=== PATIENT | female | born 1965 | race African-American/Black ===

== ENCOUNTER 2021-11-06 08:13 | Outpatient (CLI) | payer OTHER, SELFPAY ==
--- NOTE | ~2021-11-06 | DEXA_ITS ---
Bone Density Report Name: LORE MCCOLLUM Age: 56 Sex: Female Ethnicity: Black Date of : 1965 Indication: postmenopausal; screening for osteoporosis; height loss; Referring Provider: EREN CHRISTY Study: Bone densitometry was performed. Exam Date: November 06, 2021 Accession number: [id number] Bone Density: Region BMD T-score Z-score Classification AP Spine(L1, L2, L3) 1.069 0.5 1.0 Normal Femoral Neck (Left) 0.981 1.2 1.2 Normal Total Hip (Left) 1.154 1.7 1.5 Normal Femoral Neck (Right) 0.960 1.0 1.0 Normal Total Hip (Right) 1.124 1.5 1.3 Normal Total Hip Mean 1.139 1.6 1.4 Normal World Health Organization criteria for BMD impression classify patients as: Normal (T-score at or above -1.0), Osteopenia (T-score between -1.0 and -2.5), or Osteoporosis (T-score at or below -2.5). 10-year Fracture Risk: FRAX not reported because: All T-scores for Spine Total, Hip Total, Femoral Neck at or above -1.0 Clinical Information Provided by Patient: Has used the following medications: Vitamin D Patient maximum height was 67 Menopause Age: 48 Drinks caffeinated beverages Onset of menses at age 13 Number of children 1 Impression: The patient has normal bone mass. Discussion: BONE DENSITY IS ABOVE THE MINIMUM DESIRABLE LEVEL AT ALL SKELETAL SITES TESTED. This patient?s bone mineral density is above the minimum desirable level (T-score -1.0 or better) at all sites measured. The patient should follow a healthful lifestyle (good nutrition with adequate calcium and vitamin D, and appropriate weight-bearing exercise). Follow-Up: Consider repeating this study in 5 years or sooner if there is some new clinical indication. Reported by: [facility] on 11/06/2021 9:48:00 AM. Reviewed, dictated and finalized at location A. [facility]
== END 2021-11-06 08:14 | disposition home or self-care (01) ==
PROVIDERS: Visit Provider Obstetrics & Gynecology Gynecology
DX: Z78.0 Asymptomatic menopausal state (principal)
CPT/HCPCS: 77080

== ENCOUNTER → 2023-02-08 14:17 | Outpatient (CLI) | payer OTHER, SELFPAY ==
--- NOTE | ~2023-02-08 | US_ITS ---
EXAMINATION: US thyroid DATE: 02/08/2023 14:44 INDICATION: Right thyroid nodule. TECHNIQUE: Multiple ultrasound images of the thyroid were obtained. COMPARISON: Ultrasound 04/30/2015 FINDINGS: The right thyroid lobe measures 8.7 x 4.2 x 6.2 cm. The left thyroid lobe measures 5.2 x 2.5 x 3.2 c m. In the left thyroid lobe, there is a 3.8 cm solid, hypoechoic, wider than tall nodule with smooth margin without echogenic foci (TI-RADS TR4), stable from 04/30/15. In the right thyroid lobe, there is a 5.7 cm solid, hypoechoic, wider than tall nodule with smooth margin without echogenic foci (TR4) , enlarged from 2.6 cm on 04/30/15. IMPRESSION: 1. Multinodular goiter. Ultrasound-guided fine-needle aspiration of the 5.7 cm right thyroid nodule i s recommended. Reviewed, dictated and finalized at location A. IMPRESSION: 1. Multinodular goiter. Ultrasound-guided fine-needle aspiration of the 5.7 cm right thyroid nodule is recommended.
== END ==
PROVIDERS: PCP Internal Medicine; Visit Provider Obstetrics & Gynecology Gynecology
DX: E04.2 Nontoxic multinodular goiter (principal)
CPT/HCPCS: 76536

== ENCOUNTER 2023-05-04 12:39 | Outpatient (CLI) | payer OTHER, SELFPAY ==
--- NOTE | ~2023-05-04 | US_ITS ---
EXAMINATION: US FNA w image guidance DATE: 05/04/2023 13:57 INDICATION: Thyroid nodules. TECHNIQUE: The procedure and its benefits and risks were discussed with the patient. Risks specifically discusse d included bleeding. The patient verbalized understanding of the risks and agreed to proceed. The nec k was prepped and draped in the usual sterile manner. 1% lidocaine was used for local anesthesia. 6 passes were made with a 25G needle into the lesion in left thyroid lobe under ultrasound guidance. 6 passes were made with a 25-gauge needle into the lesion in right thyroid lobe under ultrasound marcia nce. There were no immediate complications. FINDINGS: Grayscale ultrasound images demonstrate needles advanced into a 4.5 cm nodule in left thyroid lobe fo r biopsy. Grayscale ultrasound images demonstrate needles advanced into a 6.3 cm nodule in right thyr oid lobe for biopsy. IMPRESSION: 1. Ultrasound-guided fine needle aspiration of a left thyroid nodule. 2. Ultrasound-guided fine-needle aspiration of a right thyroid nodule. Reviewed, dictated and finalized at location A. [employer]
--- NOTE | ~2023-05-04 | US_ITS ---
EXAMINATION: US FNA additional DATE: 05/04/2023 13:57 INDICATION: Thyroid nodules. TECHNIQUE: The procedure and its benefits and risks were discussed with the patient. Risks specifically discusse d included bleeding. The patient verbalized understanding of the risks and agreed to proceed. The nec k was prepped and draped in the usual sterile manner. 1% lidocaine was used for local anesthesia. 6 p asses were made with a 25G needle into the lesion in left thyroid lobe under ultrasound guidance. 6 p asses were made with a 25-gauge needle into the lesion in right thyroid lobe under ultrasound guidanc e. There were no immediate complications. FINDINGS: Grayscale ultrasound images demonstrate needles advanced into a 4.5 cm nodule in left thyroid lobe fo r biopsy. Grayscale ultrasound images demonstrate needles advanced into a 6.3 cm nodule in right thyr oid lobe for biopsy. IMPRESSION: 1. Ultrasound-guided fine needle aspiration of a left thyroid nodule. 2. Ultrasound-guided fine-needle aspiration of a right thyroid nodule. Reviewed, dictated and finalized at location A. [facility]ER
== END 2023-05-04 12:40 | disposition home or self-care (01) ==
PROVIDERS: PCP Internal Medicine; Visit Provider Internal Medicine
DX: E04.2 Nontoxic multinodular goiter (principal)
CPT/HCPCS: 10005; 10006; 88173; 88305

== ENCOUNTER 2023-10-01 12:38 | Outpatient (CLI) | payer OTHER, SELFPAY ==
--- NOTE | ~2023-10-01 | US_ITS ---
EXAMINATION: US FNA w image guidance DATE: 10/01/2023 13:32 INDICATION: Left thyroid nodule. TECHNIQUE: The procedure and its benefits and risks were discussed with the patient. Risks specifically discusse d included bleeding. The patient verbalized understanding of the risks and agreed to proceed. The nec k was prepped and draped in the usual sterile manner. 1% lidocaine was used for local anesthesia. 6 passes were made with a 25G needle into the lesion under ultrasound guidance. There were no immedia te complications. FINDINGS: Grayscale ultrasound images demonstrate needles advanced into a 4.7 cm left thyroid nodule for biopsy . IMPRESSION: 1. Ultrasound-guided fine needle aspiration of a left thyroid nodule. Reviewed, dictated and finalized at location A.
== END 2023-10-01 12:39 | disposition home or self-care (01) ==
LOC: ANHIMG 12:38
PROVIDERS: PCP Internal Medicine; Visit Provider Internal Medicine
DX: E04.2 Nontoxic multinodular goiter (principal)
CPT/HCPCS: 10005; 88172; 88173; 88305

== ENCOUNTER 2024-03-13 16:17 | Outpatient (CLI) | payer OTHER, SELFPAY ==
--- NOTE | ~2024-03-13 | XR_ITS ---
XR knee RT 3V Ordering provider: Ernie Zhang, History: . PAIN OF RIGHT KNEE JOINT . Comparison: None. FINDINGS: BONES: No acute fracture or dislocation. JOINT SPACES: Narrowing of the medial compartment. Narrowing of the patellofemoral joint. SOFT TISSUES: Normal. IMPRESSION: No acute osseous abnormality right knee. Moderate osteoarthritic changes. Reviewed, dictated and finalized at location A.
== END 2024-03-13 16:18 | disposition home or self-care (01) ==
LOC: ANHIMG 16:20
PROVIDERS: PCP Internal Medicine; Visit Provider Internal Medicine
DX: M17.11 Unilateral primary osteoarthritis, right knee (principal)
CPT/HCPCS: 73562

== ENCOUNTER 2024-03-29 14:08 | Outpatient (CLI) | payer OTHER, SELFPAY ==
--- NOTE | ~2024-03-29 | DEXA_ITS ---
Bone Density Report Name: LORE WAGNER Age: 59 Sex: Female Ethnicity: White Date of : 1965 Indication: postmenopausal; screening for osteoporosis; height loss; Referring Provider: DAKOTA, TETE Stephenson Study: Bone densitometry was performed. Exam Date: March 29, 2024 Accession number: [id number] Bone Density: Region BMD T-score Z-score Classification AP Spine(L1-L4) 1.074 0.2 1.7 Normal Femoral Neck (Left) 0.950 0.9 2.2 Normal Total Hip (Left) 1.159 1.8 2.8 Normal Femoral Neck (Right) 0.951 0.9 2.2 Normal Total Hip (Right) 1.172 1.9 2.9 Normal Total Hip Mean 1.166 1.9 2.9 Normal World Health Organization criteria for BMD impression classify patients as: Normal (T-score at or above -1.0), Osteopenia (T-score between -1.0 and -2.5), or Osteoporosis (T-score at or below -2.5). 10-year Fracture Risk: FRAX not reported because: All T-scores for Spine Total, Hip Total, Femoral Neck at or above -1.0 Clinical Information Provided by Patient: Has used the following medications: Vitamin D Patient maximum height was 67.0 Onset of menses at age 14 Number of children 1 Impression: The patient has normal bone mass. Discussion: BONE DENSITY IS ABOVE THE MINIMUM DESIRABLE LEVEL AT ALL SKELETAL SITES TESTED. This patient?s bone mineral density is above the minimum desirable level (T-score -1.0 or better) at all sites measured. The patient should follow a healthful lifestyle (good nutrition with adequate calcium and vitamin D, and appropriate weight-bearing exercise). Follow-Up: Consider repeating this study in 5 years or sooner if there is some new clinical indication. Reported by: BIRDIE on 03/29/2024 2:42:00 PM. Reviewed, dictated and finalized at location [facility]
== END 2024-03-29 14:09 | disposition home or self-care (01) ==
LOC: ANHIMG 14:10
PROVIDERS: PCP Internal Medicine; Referring Provider Obstetrics & Gynecology Gynecology; Visit Provider Internal Medicine
DX: Z78.0 Asymptomatic menopausal state (principal)
CPT/HCPCS: 77080

== ENCOUNTER 2024-07-26 17:25 | Outpatient (CLI) | payer OTHER, SELFPAY ==
--- OUTSIDE RECORDS SUMMARY | 2024-07-26 17:28 | XMS_ITS | Clinical Summary ---
Author Organization [facility] Address [address] [place] [address] Care Team Providers Care Nutrition Consultant Name Role Phone Ernie Zhang MD Primary Care Provider [phone] Grace Mccabe MD Unavailable Rip Evans MD Unavailable [phone] Allergies No known active allergies Medications citalopram (CeleXA) 40 mg tablet TK 1 T PO QD 3 09/03/2018 Active spironolactone (ALDACTONE) 100 mg tablet TK 1 T PO QD 2 09/05/2018 Active ascorbic acid (VITAMIN C) 500 mg tablet,chewable Acti ve geriatric multivitamin-mi n tablet Take 1 tablet by mouth daily Active cholecalciferol (VITAMIN D-3) 5,000 unit capsule Take 1 capsule (5,000 Units total) by mouth daily Active simvastatin (ZOCOR) 20 mg tablet Take 1 tablet (20 mg total) by mouth daily 04/28/2022 Active Active Problems Problem Noted Date Diagnosed Date Anxiety state 05/10/2023 Hyperlipidemia 05/10/2023 Hypothyroidism 05/10/2023 Achilles tendinitis of left lower extremity 02/2023 Thrombocytopenia, unspecified 01/09/2019 Encounters Date Type Department Care Team Description 07/13/2024 Orders Only [facility] Scanning, Provider 05/09/2024 8:00 AM INDUSTRIAL ECOLOGIST Office Visit [facility] [address] [place] [id number] Acosta Gonzales, SANCHEZ Thrombocytopenia, unspecified (HCC) (Primary Dx) 05/09/2024 7:30 AM INDUSTRIAL ECOLOGIST Lab [facility] [address] [place] [id number] Thrombocytopenia, unspecified (HCC) 04/25/2024 7:15 AM INDUSTRIAL ECOLOGIST - 04/25/2024 11:59 PM INDUSTRIAL ECOLOGIST Hospital Encounter [facility] Breast Imaging [facility] ([facility]) [address] [place] [id number] Screening mammogram, encounter for Discharge Disposition: Discharge to home or self care from Last 3 Months Immunizations Name Administration Dates Next Due Influenza, Quadrivalent, Spl it, Preservative Free, Intramuscular 04/16/2022,03/24/2021 Sars-CoV-2, Unspecified 09/29/2020,09/03/2020 Surgical History Surgery Date Site/Laterality Comments MENISCUS SURGERY THYROIDECTOMY 12/02/2023 Left Medical History Medical History Date Comments Anxiety Abnormal thyroid biopsy 05/04/2023 Hypercholesteremia Family History Medical History Relation Name Comments Breast cancer Sister Relation Name Status Comments Sister Social History Tobacco Use Types Packs/Day Years Used Date Smoking Tobacco: Never Smokeless Tobacco: Never Tobacco Cessation:Counseling Given: Not Answered Alcohol Use Standard Drinks/Week Comments Yes 0 (1 standard drink = 0.6 oz pur e alcohol) Comments Unknown Sex and Gender Information Value Date Recorded Sex Assigned at Not on file Legal Sex Female 4:15 AM INDUSTRIAL ECOLOGIST Gender Identity Not on file Sexual Orientation Not on file Obstetrics History Last Filed Vital Signs Vital Sign Reading Time Taken Comments Blood Pressure 126/83 05/09/2024 8:04 AM INDUSTRIAL ECOLOGIST Pulse 65 05/09/2024 8:04 AM INDUSTRIAL ECOLOGIST Temperature 36.2 C (97.2 F) 05/09/2024 8:04 AM INDUSTRIAL ECOLOGIST Respiratory Rate 18 05/09/2024 8:04 AM INDUSTRIAL ECOLOGIST Oxygen Saturation 96% 05/09/2024 8:04 AM INDUSTRIAL ECOLOGIST Inhaled Oxygen Concentration - - Weight 118.5 kg (261 lb 3.2 oz) 05/09/2024 8:01 AM INDUSTRIAL ECOLOGIST Height 167.6 cm (5' 6 ) 05/13/2021 8:37 AM INDUSTRIAL ECOLOGIST Body Mass Index 42.16 05/13/2021 8:37 AM INDUSTRIAL ECOLOGIST Plan of Treatment Health Maintenance Due Date Last Done Comments Cervical Cancer Screening 1963 Colon Cancer Screening-Colonoscopy 1963 Depression Screening 1963 DTaP/Tdap/Td Vaccine (1 - Tdap) 1974 Hepatitis B Screening 1981 Regular Well Visit/Exam 18-64 1981 Zoster Vaccine (1 of 2) 2013 Breast Cancer Screening-Mammogram 04/25/2025 04/25/2024, 04/23/2023 Hepatitis C Screening Completed 01/02/2019 , 01/02/2019 Covid-19 Vaccine Discontinued 09/29/2020, 09/03/2020 Influenza Vaccine Completed 04/08/2024, 04/16/2022, 03/24/2021 Pneumococcal vaccine <65 Aged Out No longer eligible based on patient's age to complete this topic Procedures Procedure Name Priority Date/Time Associated Diagnosis Comments SCAN - LABS 07/13/2024 EGFR Routine 05/09/2024 7:47 AM INDUSTRIAL ECOLOGIST Thrombocytopenia, unspecified (HCC) DIFFERENTIAL AUTO Routine 05/09/2024 7:4 7 AM INDUSTRIAL ECOLOGIST Thrombocytopenia, unspecified (HCC) CBC WITH AUTO DIFFERENTIAL Routine 05/09/2024 7:47 AM INDUSTRIAL ECOLOGIST Thrombocytopenia, unspecified (HCC) COMPREHENSIVE METABOLIC PANEL Routine 05/09/2024 7:47 AM INDUSTRIAL ECOLOGIST Thrombocytopenia, unspecified (HCC) SCREENING MAMMOGRAM BILATERAL W SHAAN Schedule Routine, Read Routine (OP Routine) 04/25/2024 7:35 AM INDUSTRIAL ECOLOGIST Screening mammogram, encounter for HEPATITIS PANEL, ACUTE Routine 01/02/2019 9:48 AM CDT Abnormal laboratory test result from Last 3 Months or Most Recently Relevant to Health Maintenance Results * SCAN - LABS (07/13/2024) us Provider Scanning Edited Result - Final * eGFR (05/09/2024 7:47 AM INDUSTRIAL ECOLOGIST) eGFR 76 >=60 mL/min/1. 73 m2 Comment: Interpretive Data Reference Interval Normal >/= 90 mL/min/1.73m2 Mildly decreased* 60 - 89 mL/min/1.73m2 Mildly to moderately decreased 45 - 59 mL/min/1.73m2 Moderately to severely decreased 30 - 44 mL/min/1.73m2 Severely decreased 15 - 29 mL/min/1.73m2 Kidney Failure < 15 mL/min/1.73m2 *Relative to young adult level Estimated glomerular filtration rate is determined by the 2020 CKD-EPI equation recommended by the National Kidney Foundation (A Unifying Approach to GFR Estimation: Recommendations of the NKF-ASK Task Force on Reassessing the Inclusion of Race in Diagnosing Kidney Disease, JASN 2020). The CKD-EPI equation should not be used for patients with unstable renal function and has not been validated in children and those over 70. Current interpretive data was last reviewed 2021. Testing performed by: [facility] [place] [address] Blood 05/09/2024 7:47 AM INDUSTRIAL ECOLOGIST 05/09/2024 8:01 AM INDUSTRIAL ECOLOGIST Rip Evans MD LAB BLOOD ORDERABLES Fin al Result ROBI FERNANDEZ [address] Department [place] [address] * Differential, auto (05/09/2024 7:47 AM INDUSTRIAL ECOLOGIST) Neutrophil abs 2.1 1.5 - 6.5 K/cumm Comment:Testing performed by : [facility] [place] [address] Imm gran abs 0.0 0.0 - 0.1 K/cumm ROBI FERNANDEZ Comment:Testing performed by : [facility] [place] [address] Lymphocyte abs 2.1 0.8 - 3.3 K/cumm CERNER CH Comment:Testing performed by : [facility] [place] [address] Monocyte abs 0.5 0.2 - 0.8 K/cumm CERNER CH Comment:Testing performed by : [facility] [place] [address] Eosinophil abs 0.1 0.0 - 0.5 K/cumm CERNER CH Comment:Testing performed by : [facility] [place] [address] Basophil abs 0.0 0.0 - 0.1 K/cumm CERNER CH Comment:Testing performed by : [facility] [place] [address] Neutrophil pct 44.0 % CERNER CH Comment: Interpretive Data Percent cell count reference ranges are not reported, since discordance with absolute values may lead to misinterpretation of CBC data. Current Interpretive Data was last revised on 2017. Testing performed by: [facility] [place] [address] Imm gran pct 0.2 % CERNER CH Comment: Interpretive Data Percent cell count reference ranges are not reported, since discordance with absolute values may lead to misinterpretation of CBC data. Current Interpretive Data was last revised on 2017. Testing performed by: [facility] [place] [address] Lymphocyte pct 43.3 % CERNER CH Comment: Interpretive Data Percent cell count reference ranges are not reported, since discordance with absolute values may lead to misinterpretation of CBC data. Current Interpretive Data was last revised on 2017. Testing performed by: [facility] [place] [address] Monocyte pct 10.7 % CERNER CH Comment: Interpretive Data Percent cell count reference ranges are not reported, since discordance with absolute values may lead to misinterpretation of CBC data. Current Interpretive Data was last revised on 2017. Testing performed by: [facility] [place] [id number] Eosinophil pct 1.0 % CERNER CH Comment: Interpretive Data Percent cell count reference ranges are not reported, since discordance with absolute values may lead to misinterpretation of CBC data. Current Interpretive Data was last revised on 2017. Testing performed by: [facility] [place] [address] Basophil pct 0.8 % ROBI FERNANDEZ Comment: Interpretive Data Percent cell count reference ranges are not reported, since discordance with absolute values may lead to misinterpretation of CBC data. Current Interpretive Data was last revised on 2017. Testing performed by: [facility] [place] [address] Blood 05/09/2024 7:47 AM INDUSTRIAL ECOLOGIST 05/09/2024 8:01 AM INDUSTRIAL ECOLOGIST us Rip Evans MD LAB BLOOD ORDERABLES Fin al Result ROBI FERNANDEZ [address] Department [place] [address] * (ABNORMAL) CBC with auto differential (05/09/2024 7:47 AM INDUSTRIAL ECOLOGIST) WBC 4.8 3.8 - 9.9 K/cumm Comment:Testing performed by : [facility] [place] [address] Hgb 13.4 11.9 - 15.5 g/dL ROBI Comment:Testing performed by : [facility] [place] [address] Hct 40.9 35.6 - 45.5 % ROBI CH Comment:Testing performed by : [facility] [place] [address] Plt 99(L) 150 - 400 K/cumm CERGALLITO CH Comment:Testing performed by : [facility] [place] [address] MPV 12.5(H) 9.1 - 12.3 fL ROBI CH Comment:Testing performed by : [facility] [place] [address] RBC 4.58 3.90 - 5.20 M/cumm ROBI CH Comment:Testing performed by : [facility] [place] [address] MCV 89.3 81.3 - 96.4 fL ROBI CH Comment:Testing performed by : [facility] [place] [address] MCH 29.3 27.1 - 33.3 pg CERNER CH Comment:Testing performed by : [facility] [place] [address] MCHC 32.8 32.3 - 35.7 g/dL CERNER CH Comment:Testing performed by : [facility] [place] [address] RDW CV 13.0 11.1 - 14.9 % CERNER CH Comment:Testing performed by : [facility] [place] [address] RDW SD 42.7 35.7 - 48.1 fL CERNER CH Comment:Testing performed by : [facility] [place] [address] NRBC abs 0.00 0.00 - 0.01 K/cumm CERGALLITO CH Comment:Testing performed by : [facility] [place] [address] Blood 05/09/2024 7:47 AM INDUSTRIAL ECOLOGIST 05/09/2024 8:01 AM INDUSTRIAL ECOLOGIST us Rip Evans MD LAB BLOOD ORDERABLES Fin al Result ROBI [address] [address] Department [place] [address] * Comprehensive metabolic panel (05/09/2024 7:47 AM INDUSTRIAL ECOLOGIST) Sodium 140 135 - 145 mmol/L Comment:Testing performed by : [facility] [place] [address] Potassium, pl 4.5 3.3 - 4.9 mmol/L CERNER CH Comment:Testing performed by : [facility] [place] [address] Chloride 103 97 - 110 mmol/L CERNER CH Comment:Testing performed by : [facility] [place] [address] CO2 27 22 - 32 mmol/L CERNER CH Comment:Testing performed by : [facility] [place] [address] Anion gap 10 2 - 15 mmol/L CERNER CH Comment:Testing performed by : [facility] [place] [address] BUN 12 6 - 25 mg/dL CERNER CH Comment:Testing performed by : [facility] [place] [address] Creatinine 0.87 0.60 - 1.10 mg/dL CERNER CH Comment:Testing performed by : [facility] [place] [address] Glucose 110 70 - 199 mg/dL CERNER CH Comment: Interpretive Data Fasting glucose >/= 126 mg/dl is diagnostic for diabetes. Fasting is defined as no caloric intake for at least 8 hours. Fasting glucose between 100 mg/dl to 125 mg/dl is diagnostic of prediabetes. In a patient with classic symptoms of hyperglycemia or hyperglycemic crisis, a random glucose >/= 200 mg/dl is diagnostic for diabetes. In the absence of unequivocal hyperglycemia, results should be confirmed by repeat testing. The classification and Diagnosis of Diabetes Diabetes Care 202; 46: S19-S40. Current interpretive data was last revised 2022. Testing performed by: [facility] [place] [address] Calcium 9.4 8.5 - 10.3 mg/dL CERNER CH Comment:Testing performed by : [facility] [place] [address] Bilirubin, total 0.3 0.1 - 1.2 mg/dL CERNER CH Comment:Testing performed by : [facility] [place] [address] Protein, pl 7.4 6.5 - 8.5 g/dL CERNER CH Comment:Testing performed by : [facility] [place] [address] Albumin 4.1 3.5 - 5.0 g/dL CERNER CH Comment:Testing performed by : [facility] [place] [address] Alk phos 79 40 - 130 Units/L CERNER CH Comment:Testing performed by : [facility] [place] [address] ALT 21 7 - 45 Units/L CERNER CH Comment:Testing performed by : [facility] [place] [address] AST 24 10 - 45 Units/L CERNER CH Comment:Testing performed by : [facility] [place] [address] Blood 05/09/2024 7:47 AM INDUSTRIAL ECOLOGIST 05/09/2024 8:01 AM INDUSTRIAL ECOLOGIST Rip Evans MD LAB BLOOD ORDERABLES Fin al Result ROBI FERNANDEZ [address] Department [place] [address] * Screening Mammogram Bilateral W Shaan (04/25/2024 7:35 AM INDUSTRIAL ECOLOGIST) Anatomical Region Laterality Modality Breast Bilateral Mammography Narrative 04/25/2024 3:32 PM INDUSTRIAL ECOLOGIST Mammogram Technique: Bilateral Digital Breast Tomosynthesis, Bilateral C-view 2D Screening mammogram. Views obtained: bilateral craniocaudal and bilateral mediolateral oblique. Computer Aided Detection was performed. Mammogram Findings: The present examination has been compared to prior imaging studies performed at [facility] on 04/23/2023 and 06/17/2023, and at [facility] [place], [place] on 03/02/2022. The breasts are almost entirely fatty. There is no suspicious abnormality in either breast. Impression: There is no mammographic evidence of malignancy. Annual screening mammography is recommended. OVERALL FINAL ASSESSMENT: BI-RADS CATEGORY 1: Negative. Procedure Note Ivet Randhawa MD - 04/25/2024 Mammogram Technique: Bilateral Digital Breast Tomosynthesis, Bilateral C-view 2D Screening mammogram. Views obtained: bilateral craniocaudal and bilateral mediolateral oblique. Computer Aided Detection was performed. Mammogram Findings: The present examination has been compared to prior imaging studies performed at [facility] on 04/23/2023 and 06/17/2023, and at [place], [place] on 03/02/2022. The breasts are almost entirely fatty. There is no suspicious abnormality in either breast. Impression: There is no mammographic evidence of malignancy. Annual screening mammography is recommended. OVERALL FINAL ASSESSMENT: BI-RADS CATEGORY 1: Negative. Self Screening Mammogram IMG MAMMO PROCEDURES Fi nal Result * Hepatitis panel, acute (01/02/2019 9:48 AM CDT) Hep A IgM Negative Negative CERNER CH Hep B core IgM Negative Negative CERNER CH Hep C Ab Negative Negative CERNER CH HepBsAg Nonreactive Nonreactive CERNER CH Blood specimen (specimen) 01/02/2019 9:48 AM CDT 01/02/2019 10:23 AM CDT Ramona Chiang MD PhD LAB MICROBIOLOGY - GENERAL OR DERABLES Final Result ROBI [address] Department [place] [address] from Last 3 Months or Most Recently Relevant to Health Maintenance [facility] [id number] [facility] [id number] Care Teams Nutrition Consultant Relationship Specialty Start Date End Date Ernie Zhang MD PCP - General Internal Medicine 09/21/18 Grace Mccabe MD [address] [place] [id number] Referring Physician Gynecology 09/21/18 Rip Evans MD [address] [address] Consulting Physician Internal Medicine 04/26/23
--- OUTSIDE RECORDS SUMMARY | 2024-07-26 17:28 | XMS_ITS | Patient Health Summary ---
Author Organization [facility] Address [address] [place] [address] Care Team Providers Care Director Of Federal Sales Name Role Phone Ernie Zhang MD Primary Care Provider [phone] Lloyd Mendez MD Unavailable [phone] [facility],non-owned Affiliates and Associated Physician Practices is amultiple site organization consisting of ambulatory clinics and hospital sitesin [place], [place], [place] and [place]. This disclosure is being madepursuant to the Care Everywhere program and may not contain all information available regarding this patient. Last updated 18.[facility] Allergies No known active allergies Medications * Be aware that medications may not be up to date on this document. Alwaysverify current medications with the patient. * citalopram (CeleXA) 40 MG tablet(Started 11/08/2023) Take 1 (one) tablet by mouth at bedtime * clobetasol (Temovate) 0.05 % solution(Started 10/13/2022) Apply to affected area as needed * simvastatin (Zocor) 20 MG tablet(Started 10/26/2023) Take 1 (one) tablet by mouth at bedtime * spironolactone (Aldactone) 100 MG tablet(Started 03/15/2023) Take 1 (one) tablet by mouth once daily * spironolactone (Aldactone) 50 MG tablet(Started 11/09/2023) Take 1 (one) tablet by mouth at bedtime * ascorbic acid (VITAMIN C) 500 MG tablet Take 1 (one) tablet by mouth once daily * Cholecalciferol (Vitamin D3) 125 MCG (5000 UT) Take 1 tablet by mouth once daily * [place]-3 Fatty Acids (fish oil) 1000 MG capsule Take 1 (one) capsule by mouth once daily * oxyCODONE, immediate release, (Roxicodone) 5 MG tablet(Started 12/03/2023) Take 1 (one) tablet by mouth every 4 hours as needed * acetaminophen (Tylenol) 325 MG tablet(Started 12/03/2023) Take 2 (two) tablets by mouth every 6 hours Maximum allowable Acetaminophen amount = 4 Grams (4000 mg) / 24 hours. * ibuprofen (Motrin) 600 MG tablet(Started 12/03/2023) Take 1 (one) tablet by mouth every 6 hours * docusate sodium (Colace) 100 MG capsule(Started 12/03/2023) Take 1 (one) capsule by mouth 2 times daily as needed for Constipation Active Problems Problem Noted Date Diagnosed Date Thyroid nodule 10/22/2023 Social History Tobacco Use Types Packs/Day Years Used Date Smoking Tobacco: Never Smokeless Tobacco: Never Tobacco Cessation:Counseling Given: Not Answered Alcohol Use Standard Drinks/Week Comments Yes 0 (1 standard drink = 0.6 oz pur e alcohol) socially maybe 1-2 a month Sex and Gender Information Value Date Recorded Sex Assigned at Female 01/10/2024 4:06 PM CDT Gender Identity Female 01/10/2024 4:06 PM CDT Sexual Orientation Not on file Last Filed Vital Signs Vital Sign Reading Time Taken Comments Blood Pressure 119/82 12/31/2023 1:48 PM CDT Pulse 69 12/31/2023 1:48 PM CDT Temperature 36.7 C (98 F) 12/03/2023 7:55 AM CDT Respiratory Rate 16 12/03/2023 7:55 AM CDT Oxygen Saturation 95% 12/03/2023 7:55 AM CDT Inhaled Oxygen Concentration - - Weight 117.3 kg (258 lb 9.6 oz) 12/31/2023 1:48 PM CDT Height 167.6 cm (5' 6 ) 12/31/2023 1:48 PM CDT Body Mass Index 41.74 12/31/2023 1:48 PM CDT Procedures * LAB RESULTS ORDER(Performed 01/01/2024) * PATHOLOGY TISSUE(Performed 12/02/2023) Performed for Thyroid nodule * ENDOTRACHEAL TUBE NOTE(Performed 12/02/2023) * IA THYROIDECTOMY(Performed 12/02/2023) Performed for Thyroid nodule * BASIC METABOLIC PANEL (CALCIUM TOTAL)(Performed 11/23/2023) Performed for Thyroid nodule Results * LAB RESULTS ORDER (01/01/2024) 01/01/2024 Narrative 01/01/2024 Ordered by an unspecified provider. Scanned Document LAB - THERAPEUTIC DR SERAFIN MONITORING ORDERABLES * PATHOLOGY TISSUE (12/02/2023 9:00 AM CDT) Case Report Surgical Pathology Report Case: [id number] Authorizing Provider: Malcolm Hampton MD Collected: 12/02/2023 09:00 AM Ordering Location: [facility] Received: 12/02/2023 11:24 AM Pathologist: Susan Danielle MD Specimen: Thyroid, Left Lobe, Left Thyroid Lobe, Stitched Superior 12/03/2023 6:08 PM CDT [facility] Final Diagnosis Thyroid, left, left hemithyroidectomy: - Multinodular thyroid hyperplasia with a dominant nodule (4.0 cm) 12/03/2023 6:08 PM CDT [facility] Microscopic Description and Comment No significant atypia or malignancy is seen. 12/03/2023 6:08 PM CDT [facility] Clinical History The patient is a 58 year old female PMHx s/f anxiety, HLD, and multinodular goiter with left thyroid nodule suspicious for follicular neoplasm. 12/03/2023 6:08 PM CDT [facility] Gross Description The requisition and specimen(s) are identified with the patient's name, Karishma Harris. Received in formalin, specimen A , is a oriented lobectomy. Also received in the same container are multiple additional irregular fragments of soft tissue consistent with thyroid aggregating to 4.0 x 3.0 x 1.5 cm. The specimen weighs 10.9 g and measures 4.0 x 4.0 x 2.0 cm overall. The left lobe measures 4.0 x 3.0 x 2.0 cm. The isthmus measures 2.0 x 1.0 x 0.8 cm. The specimen is inked as follows: Blue- External surface of the left lobe, [place] -resection margin of isthmus The specimen is serially sectioned from superior to inferior to show 2 nodules. Nodule #1 is located upper to mid to lower pole and measures 4.0 x 2.0 x 1.5 cm. The lesion is pearson-white, cystic with focal solid areas and does not have gross extrathyroidal extension. Nodule #2 is located in the lower pole and measures 1.0 x 0.5 x 0.4 cm. The lesion is pearson-white, solid, and does not have gross extrathyroidal extension. The background thyroid parenchyma is red-brown, unremarkable. [employer] Implementation Engineer sections are submitted as follows: A1 nodule #1 with relationship to inked isthmus margin A2-A5 remainder of tumor nodule #1 A6 nodule #2, entirely A7 uninvolved 12/03/2023 6:08 PM [facility] Pathologist Location at [facility] 12/03/2023 6:08 PM [facility] Disclaimer The performance characteristics of all immunohistochemical and indirect immunofluorescence stains (if any) cited in this report were determined by the [facility]opathology [facility] of [facility]. Some of these tests were developed by our own laboratory and have not been cleared or approved by the US Food and Drug Administration. The FDA does not require this test to go through premarket FDA review. These tests are used for clinical purposes. They should not be regarded as investigational or for research. This laboratory is certified under the Clinical Laboratory Improvement Amendments (CLIA) as qualified to perform high complexity clinical laboratory testing. This case has been personally reviewed and interpreted by the attending (teaching) pathologist. 12/03/2023 6:08 PM [facility] Embedded Images 12/03/2023 6:08 PM [facility] Resection without Tumor (Thyroid, Left Lobe) 12/02/2023 9:00 AM CDT 12/02/2023 11:24 AM CDT Comment:Pre-op diagnosis: Thyroid nodule Malcolm Hampton MD LAB - PATHOLOGY/CYTO LOGY ORDERABLES [facility] [address] [place] [address], [facility] [phone] * ETT LINE PERFORMABLE (12/02/2023 8:08 AM CDT) Narrative Agustin Mabry Anes Asst - 12/02/2023 8:08 AM CDT Agustin Mabry Anes Asst 12/02/2023 8:09 AM Endotracheal Tube Placement: Patient Location: OR. Intubation Event Date/Time: 12/02/2023 7:39 AM Procedure: intubation ([id number]) Procedure Section: Sedation: under general anesthesia. Indications for Airway Management: anesthesia Induction: standard IV Patient Position: sniffing Mask Ventilation: easy. Blade Type: Video (ProVue- MAC 3 Blade) Blade Size: 3 Laryngoscopy View: grade 1 (full cords) Intubation Adjuncts: cricoid pressure, stylet and video laryngoscope Tube: nerve integrity monitoring tube Placement: oral Tube type: cuff - inflated Tube Size (MM): 7 Depth of Insertion (CM): 20 Measured From: teeth Cuff Inflated With: air Number of Attempts: 1. Placement Verified By: direct visualization, bilateral breath sounds, chest auscultation and CO2 monitor Tube secured with: adhesive tape. Dentition unchanged? Yes Difficult Airway? No. Procedure Start Time: 12/02/2023 7:39 AM. Staff Section Anesthesia Provider: Agustin Mabry Anes Asst, Performed the procedure Provider #1: Roxana Montgomery MD. Roxana Montgomery MD [facility] ORDERABLES * (ABNORMAL) BASIC METABOLIC PANEL (CALCIUM TOTAL) (11/23/2023 2:03 PM CDT) BUN 17 7 - 26 mg/dL 11/23/2023 3:13 PM CDT [facility] Creatinine 0.96 0.56 - 0.96 mg/dL 11/23/2023 3:13 PM CDT [facility] Sodium 137 136 - 145 mmol/L 11/23/2023 3:13 PM [facility] Potassium 4.0 3.5 - 4.5 mmol/L 11/23/2023 3:13 PM [facility] Chloride 100 98 - 107 mmol/L 11/23/2023 3:13 PM [facility] CO2 30(H) 22 - 29 mmol/L 11/23/2023 3:13 PM [facility] Glucose 82 70 - 115 mg/dL 11/23/2023 3:13 PM [facility] Calcium 10.0 8.4 - 10.2 mg/dL 11/23/2023 3:13 PM [facility] Anion Gap 7 6 - 16 11/23/2023 3:13 PM [facility] BUN/Creatinine Ratio 18 7 - 23 11/23/2023 3:13 PM [facility] Osmolality Calculated 285 275 - 295 mOsm/kg 11/23/2023 3:13 PM [facility] eGFR by CKD-EPI 68(L) >=90 mL/min/1.7 3 m2 11/23/2023 3:13 PM [facility] Blood BLOOD SPECIMEN / Unknown Lab Venipuncture / Unknown 11/23/2023 2:03 PM CDT 11/23/2023 2:43 PM T Malcolm Hampton MD LAB - CHEMISTRY [place] [facility] Organization Address [facility]/State/ZIP Co de Phone Number [facility] [address] [place] [address], [facility] [phone] Care Teams Director Of Federal Sales Relationship Specialty Start Date End Date Ernie Zhang MD [address] [place] [address] [address] [place] [address] PCP - General Internal Medicine 11/23/23 Lloyd Mendez MD [address] [place] [address] Physician Internal Medicine 11/23/23
--- OUTSIDE RECORDS SUMMARY | 2024-07-26 17:28 | XMS_ITS | Data Portability ---
Author Organization [facility] [employer], Main Office Address [address] [place] [address] Care Team Providers Care Mastic Floor Layer Name Role Phone TETE DUNCAN Primary Care Provider TETE DUNCAN Referring Provider DAVID EDMOND Veteran Appeals Reviewer Assessment Encounter Date Assessment Date Assessment LastModified by Organization Details LastModified Time 07/13/2024 07/13/2024 This note is dictated and transcribed by [employer]. Fish Checker variances may occur. Despite proofreading, typographical errors may occur. Occasional wrong-word or '[id number]' substitutions may have occurred due to the inherent limitations of voice recording. Read the chart carefully and recognize, using context, where substitutions have occurred. [email or web address] Not available 07/13/2024 10:47:44 Plan of Treatment Reminders Order Date Submit Date Provider Last Modified By Organization Details Last Modified Time Details Appointments Establish ed Patient 15 2024 09:00A Lia Edmond DPM Not available Not available Not available Any 15 2024 08:15A Lia Duncan MD Not available Not available Not available Lab glycohemo globin, total, blood [address] (Lab), [address] [place], [address], 04/05/2024 08:28:39 CBC [email or web address] (Lab), [address] [place], [address], 04/05/2024 08:28:39 lipid panel, serum [email or web address] (Lab), [address] [place], [address], 04/05/2024 08:28:38 CMP, serum or plasma [email or web address] (Lab), [address] [place], [address], 04/05/2024 08:28:39 glycohemo globin, total, blood 2024 025 [facility] (Lab), [address] [place], [address], 07/14/2024 21:41:40 CBC 2024 025 [facility] (Lab), [address] [place], [address], 07/13/2024 18:48:08 lipid panel, serum 2024 025 [facility] (Lab), [address] [place], [address], 07/13/2024 18:53:58 CMP, serum or plasma 2024 025 [facility] (Lab), [address] [place], [address], 07/13/2024 18:54:03 Referral physical therapist referral 2024 025 [email or web address] Not available 07/17/2024 13:17:26 Procedures colonosco py screening (PROC) 2023 024 [email or web address] Kasi Velazquez MD, [address] [facility], [facility] [address], [place], [address], 11/18/2023 08:02:36 colonosco py screening (PROC) 2023 024 [email or web address] Kasi Velazquez MD, [address] [facility], [address], [place], [address], 04/05/2024 08:29:13 colonosco py screening (PROC) - Please call patient to schedule. Patient requestin g to see Dr. Monico Caban 2024 025 [facility], [address], [address], [place], [address], 07/13/2024 16:50:31 Surgeries None recorded. Imaging XR, knee, 3 view 2023 024 [facility], [address] [facility] [address], [place], [address], 03/14/2024 18:16:23 bone density [address], [address] [facility] [address], [place], [address], 04/11/2024 08:27:58 Medication Orders simvastat in 20 mg tablet 2024 025 [id number], [address] , [place], [place], [id number], 07/13/2024 09:38:40 Patient TargetsNo targets recorded. Patient Instructions Encounter Date Encounter Id Patient Instructions Last Modified By Organization Details Last Modified Time 11/10/2023 [id number] risk assessment* Not availabl e 11/10/2023 15:45:24 INFLUENZA VACCIN E TD/TDAP Recommended today, patient declined Ordered Patient will get at local pharmacy/health department PNEUMONIA VACCINE Ordered Recommend ed today, patient declined Patient will get at local pharmacy/health department Recomm ended at age 63 SHINGLES Ordered Recommend ed today, patient declined Patient will get at local pharmacy/health department MAMMOGRAM: Last Mammogram __ No screening necessary patient is up to date DEXA SCAN No screening necessary patient is up to date CERVICAL SCREENING/PELVIC EXAMINATION Recommended today, but patient declined Ordered No screening necessary patient is up to date COLORECTAL SCREENING: Last Colonoscopy No screening necessary patient is up to date DEPRESSION SCREENING Negative BMI Overweight continue your current weight loss efforts try to lose 5% of your body weight try to lose 10% of your body weight NUTRITION Heart Healthy Diet PHYSICAL ACTIVITY Need more exercise/physical activity VISION ALCOHOL USE No alcohol use Occasional/So cial Use TOBACCO USE non smoker LUNG CANCER SCREENING Non Smoker-not indicated SEXUALLY ACTIVE HEPATITIS C SCREENING Not indicated GLUCOSE SCREENING LIPID SCREENING [email or web address] Not available 11/10/2023 15:33:53 07/13/2024 [id number] achilles tendonitis education Not available 07/13/2024 10:49:35 achilles tendon: exercises Not available 07/13/2024 10:49:35 Reason for Referral Physical Therapist Referral for Left Achilles tendinitis Referring Physician: David Edmond, Podiatric Surgery, Encounter Date: 07/13/2024 Results Created Date Observation Date Name Description Value Unit Range Abnormal Flag Note LastModifiedBy Organization Detail LastModifiedTime 05/31/20 23 05/31/2023 HEMOG LOBIN A1C HA1C 5.5 % 4.0-6. 0 Diabe arcenio Scree france Crite bredna: <5.7% Consi stent with absen ce of diabe arcenio 5.7-6 .4% Consi stent with incre ased risk for diabe arcenio (pred iabet es) >OR=6 .5% Consi stent with diabe arcenio REFER ENCE: Diabe arcenio Care 2016, 39(Moraes ppl.1 ):s13 -s22 Not Available [facility] (Lab) [address] [place], [address], 05/31/2023 20:06:56 05/31/2005/31/2023 LIPID PANEL cholesterol 167 mg/dL 140-19 9 NIH LISA NSUS RECOM MENDA TION FOR MANDY STERO L: ADULT CHILD LOW RISK: <200 <170 BORDE RLINE : <200- 239 ----- HIGH RISK: >240 >200 Not Available [facility] (Lab) [address] [place], [address], 05/31/2023 20:28:32 05/31/20 23 05/31/2023 LIPID PANEL triglyceride s 75 mg/dL 0-150 NIH LISA NSUS REPOR T RECOM MENDA TION FOR TRIGL YCERI LUCRECIA: ADULT CHILD LOW RISK: <150 ----- BODER LINE: 150-1 99 ----- HIGH RISK: >200 ----- Not Available [facility] (Lab) [address] [place], [address], 05/31/2023 20:28:32 05/31/20 23 05/31/2023 LIPID PANEL HDL cholesterol 62 mg/dL 40- Not Available [facility] (Lab) [address] [place], [address], 05/31/2023 20:28:32 05/31/20 23 05/31/2023 LIPID PANEL LDL cholesterol, calculated 90 mg/dL 0-130 NIH LISA NSUS REPOR T RECOM MENDA TIONS FOR LDL: ADULT CHILD LOW RISK <130 <110 (OPTI MAL LDL) <100 ----- KACYDE RLINE : 130-1 59 ----- HIGH RISK: >160 >130 A TRIGL YCERI DE RESUL T >400 INVAL IDATE S THE CALCU LATIO N FOR LDL FRACT IONAT ION - THE LDL RESUL T WILL NOT BE REPOR DEBORA. Not Available [facility] (Lab) [address] [place], [address], 05/31/2023 20:28:32 05/31/20 23 05/31/2023 COMPR EHENS JOSIAH METAB OLIC PANEL sodium 139 mmol/ L 137-14 5 Not Available [facility] (Lab) [address] [place], [address], 05/31/2023 20:29:08 05/31/20 23 05/31/2023 COMPR EHENS JOSIAH METAB OLIC PANEL potassium 4.1 mmol/ L 3.5-5. 1 Not Available [facility] (Lab) [address] [place], [address], 05/31/2023 20:29:08 05/31/20 23 05/31/2023 COMPR EHENS JOSIAH METAB OLIC PANEL chloride 104 mmol/ L 98-107 Not Available [facility] (Lab) [address] [place], [address], 05/31/2023 20:29:08 05/31/20 23 05/31/2023 COMPR EHENS JOSIAH METAB OLIC PANEL carbon dioxide 27 mmol/ L 22-30 Not Available [facility] (Lab) [address] [place], [address], 05/31/2023 20:29:08 05/31/20 23 05/31/2023 COMPR EHENS JOSIAH METAB OLIC PANEL anion gap 12.1 mmol/ L 14-22 low Not Available [facility] (Lab) [address] [place], [address], 05/31/2023 20:29:08 05/31/20 23 05/31/2023 COMPR EHENS JOSIAH METAB OLIC PANEL glucose 104 mg/dL 70-99 high Not Available [facility] (Lab) [address] [place], [address], 05/31/2023 20:29:08 05/31/20 23 05/31/2023 COMPR EHENS JOSIAH METAB OLIC PANEL BUN 18 mg/dL 8-19 Not Available [facility] (Lab) [address] [place], [address], 05/31/2023 20:29:08 05/31/20 23 05/31/2023 COMPR EHENS JOSIAH METAB OLIC PANEL creatinine 0.90 mg/dL 0.66-1 .25 Not Available [facility] (Lab) [address] [place], [address], 05/31/2023 20:29:08 05/31/20 23 05/31/2023 COMPR EHENS JOSIAH METAB OLIC PANEL GFR >60 Refer ence Range : [place] ge GFR Healt hy Adult : >60 mL/mi n/1.7 3 m2 Chron ic Kidne y Disea se: 15-60 mL/mi n/1.7 3 m2 Kidne y Failu re: <15/m L/min /1.73 m2 www.n iddk. nih.g ov The MDRD study equat ion has not been valid ated in child kaylan <18 years of age; pregn ant women ; the elder ly >85 years of age; or in some racia l or ethni c subgr oups, such as Hispa nics. Outsi de the valid ated ruthie eters , estim ated GFR is less accur ate, requi ring clini david judgm ent on a case- by-ca se basis . Clini david inter preta tion for other races and ages must be made by the clini gagan. The MDRD study equat ion has not been valid ated for the evalu ation of serum creat inine relat ed to nutri madhavi l statu s or medic ation usage . For perso ns <18 years of age, a pedia tric GFR calcu lator is avail able on the [facility] websi te: https ://faye smith.eladio silva/pr kavita norton s/kdo qi/gf r_cal culat or Not Available [facility] (Lab) [address] [place], [address], 05/31/2023 20:29:08 05/31/20 23 05/31/2023 COMPR EHENS JOSIAH METAB OLIC PANEL alkaline phosphatase 75 U/L 38-126 Not Available [facility] (Lab) [address] [place], [address], 05/31/2023 20:29:08 05/31/20 23 05/31/2023 COMPR EHENS JOSIAH METAB OLIC PANEL alanine aminotransfe rase 23 U/L 0-35 Not Available [facility] (Lab) [address] [place], [address], 05/31/2023 20:29:08 05/31/20 23 05/31/2023 COMPR EHENS JOSIAH METAB OLIC PANEL aspartate aminotransfe rase 28 U/L 15-37 Not Available [facility] (Lab) [address] [place], [address], 05/31/2023 20:29:08 05/31/20 23 05/31/2023 COMPR EHENS JOSIAH METAB OLIC PANEL bilirubin, total 0.40 mg/dL 0.20-1 .30 Not Available [facility] (Lab) [address] [place], [address], 05/31/2023 20:29:08 05/31/20 23 05/31/2023 COMPR EHENS JOSIAH METAB OLIC PANEL calcium 9.3 mg/dL 8.4-10 .2 Not Available [facility] (Lab) [address] [place], [address], 05/31/2023 20:29:08 05/31/20 23 05/31/2023 COMPR EHENS JOSIAH METAB OLIC PANEL total protein 7.5 g/dL 6.3-8. 2 Not Available [facility] (Lab) [address] [place], [address], 05/31/2023 20:29:08 05/31/20 23 05/31/2023 COMPR EHENS JOSIAH METAB OLIC PANEL albumin 4.1 g/dL 3.4-5. 0 Not Available [facility] (Lab) [address] [place], [address], 05/31/2023 20:29:08 05/31/20 23 05/31/2023 COMPR EHENS JOSIAH METAB OLIC PANEL globulin 3.4 g/dL 2.6-4. 2 Not Available [facility] (Lab) [address] [place], [address], 05/31/2023 20:29:08 05/31/20 23 05/31/2023 COMPR EHENS JOSIAH METAB OLIC PANEL A/G ratio 1.2 ratio 1.0-2. 0 Not Available [facility] (Lab) [address] [place], [address], 05/31/2023 20:29:08 05/31/2005/31/2023 VITAM IN D 25-HY DROXY [id number] 66.2 NG/mL 30-100 Vitam in D Statu s: Defic ient: <20 ng/mL Insuf ficie nt: 20-29 ng/mL Suffi cient : 30-10 0 ng/mL Not Available [facility] (Lab) [address] [place], [address], 05/31/2023 20:41:35 07/13/19 25 07/13/2024 CBC W/O DIFFE RENTI AL white blood cells 4.7 x10'3 /uL 4.2-10 .8 Not Available [facility] (Lab) [address] [place], [address], 07/13/2024 19:11:10 07/13/19 25 07/13/2024 CBC W/O DIFFE RENTI AL red blood cells 4.64 x10'6 /uL 3.80-5 .20 Not Available [facility] (Lab) [address] [place], [address], 07/13/2024 19:11:10 07/13/19 25 07/13/2024 CBC W/O DIFFE RENTI AL hemoglobin 13.6 g/dL 12.0-1 5.6 Not Available [facility] (Lab) [address] [place], [address], 07/13/2024 19:11:10 07/13/19 25 07/13/2024 CBC W/O DIFFE RENTI AL hematocrit 42.0 % 35.7-4 5.7 Not Available [facility] (Lab) [address] [place], [address], 07/13/2024 19:11:10 07/13/19 25 07/13/2024 CBC W/O DIFFE RENTI AL mean red cell volume 90.5 fL 82.0-9 9.0 Not Available [facility] (Lab) [address] [place], [address], 07/13/2024 19:11:10 07/13/19 25 07/13/2024 CBC W/O DIFFE RENTI AL mean red cell hemoglobin 29.3 pg 27.0-3 3.0 Not Available [facility] (Lab) [address] [place], [address], 07/13/2024 19:11:10 07/13/19 25 07/13/2024 CBC W/O DIFFE RENTI AL mean RBC HGB concentratio n 32.4 g/dL 31.0-3 6.0 Not Available [facility] (Lab) [address] [place], [address], 07/13/2024 19:11:10 07/13/19 25 07/13/2024 CBC W/O DIFFE RENTI AL red cell distribution width 13.4 % 11.8-1 5.5 Not Available [facility] (Lab) [address] [place], [address], 07/13/2024 19:11:10 07/13/19 25 07/13/2024 CBC W/O DIFFE RENTI AL platelets 88 x10'3 /uL 150-40 0 low Not Available [facility] (Lab) [address] [place], [address], 07/13/2024 19:11:10 07/13/19 25 07/13/2024 CBC W/O DIFFE RENTI AL mean platelet volume 14.0 fL 9.0-12 .4 high Not Available [facility] (Lab) [address] [place], [address], 07/13/2024 19:11:10 07/13/19 25 07/13/2024 LIPID PANEL cholesterol 159 mg/dL 140-19 9 NIH LISA NSUS RECOM MENDA TION FOR MANDY STERO L: ADULT CHILD LOW RISK: <200 <170 BORDE RLINE : <200- 239 ----- HIGH RISK: >240 >200 Not Available [facility] (Lab) [address] [place], [address], 07/13/2024 18:53:58 07/13/19 25 07/13/2024 LIPID PANEL triglyceride s 82 mg/dL 0-150 NIH LISA NSUS REPOR T RECOM MENDA TION FOR TRIGL YCERI LUCRECIA: ADULT CHILD LOW RISK: <150 ----- BODER LINE: 150-1 99 ----- HIGH RISK: >200 ----- Not Available [facility] (Lab) [address] [place], [address], 07/13/2024 18:53:58 07/13/19 25 07/13/2024 LIPID PANEL HDL cholesterol 55 mg/dL 40- Not Available [facility] (Lab) [address] [place], [address], 07/13/2024 18:53:58 07/13/19 25 07/13/2024 LIPID PANEL LDL cholesterol, calculated 88 mg/dL 0-130 NIH LISA NSUS REPOR T RECOM MENDA TIONS FOR LDL: ADULT CHILD LOW RISK <130 <110 (OPTI MAL LDL) <100 ----- BORDE RLINE : 130-1 59 ----- HIGH RISK: >160 >130 A TRIGL YCERI DE RESUL T >400 INVAL IDATE S THE CALCU LATIO N FOR LDL FRACT IONAT ION - THE LDL RESUL T WILL NOT BE REPOR DEBORA. Not Available [facility] (Lab) [address] [place], [address], 07/13/2024 18:53:58 07/13/19 25 07/13/2024 COMPR EHENS JOSIAH METAB OLIC PANEL sodium 138 mmol/ L 137-14 5 Not Available [facility] (Lab) [address] [place], [address], 07/13/2024 18:54:03 07/13/19 25 07/13/2024 COMPR EHENS JOSIAH METAB OLIC PANEL potassium 4.3 mmol/ L 3.5-5. 1 Not Available [facility] (Lab) [address] [place], [address], 07/13/2024 18:54:03 07/13/19 25 07/13/2024 COMPR EHENS JOSIAH METAB OLIC PANEL chloride 104 mmol/ L 98-107 Not Available [facility] (Lab) [address] [place], [address], 07/13/2024 18:54:03 07/13/19 25 07/13/2024 COMPR EHENS JOSIAH METAB OLIC PANEL carbon dioxide 29 mmol/ L 22-30 Not Available [facility] (Lab) [address] [place], [address], 07/13/2024 18:54:03 07/13/19 25 07/13/2024 COMPR EHENS JOSIAH METAB OLIC PANEL anion gap 9.3 mmol/ L 14-22 low Not Available [facility] (Lab) [address] [place], [address], 07/13/2024 18:54:03 07/13/19 25 07/13/2024 COMPR EHENS JOSIAH METAB OLIC PANEL glucose 114 mg/dL 70-99 high Not Available [facility] (Lab) [address] [place], [address], 07/13/2024 18:54:03 07/13/19 25 07/13/2024 COMPR EHENS JOSIAH METAB OLIC PANEL BUN 15 mg/dL 8-19 Not Available [facility] (Lab) [address] [place], [address], 07/13/2024 18:54:03 07/13/19 25 07/13/2024 COMPR EHENS JOSIAH METAB OLIC PANEL creatinine 0.93 mg/dL 0.66-1 .25 Not Available [facility] (Lab) [address] [place], [address], 07/13/2024 18:54:03 07/13/19 25 07/13/2024 COMPR EHENS JOSIAH METAB OLIC PANEL GFR >60 Refer ence Range : [place] ge GFR Healt hy Adult : >60 mL/mi n/1.7 3 m2 Chron ic Kidne y Disea se: 15-60 mL/mi n/1.7 3 m2 Kidne y Failu re: <15/m L/min /1.73 m2 www.n iddk. nih.g ov The MDRD study equat ion has not been valid ated in child kaylan <18 years of age; pregn ant women ; the elder ly >85 years of age; or in some racia l or ethni c subgr oups, such as Hispa nics. Outsi de the valid ated ruthie eters , estim ated GFR is less accur ate, requi ring clini david judgm ent on a case- by-ca se basis . Clini david inter preta tion for other races and ages must be made by the clini gagan. The MDRD study equat ion has not been valid ated for the evalu ation of serum creat inine relat ed to nutri madhavi l statu s or medic ation usage . For perso ns <18 years of age, a pedia tric GFR calcu lator is avail able on the F websi te: https ://faye smith.o rg/pr ofess ional s/kdo qi/gf r_cal culat or Not Available [facility] (Lab) [address] [place], [address], 07/13/2024 18:54:03 07/13/19 25 07/13/2024 COMPR EHENS JOSIAH METAB OLIC PANEL alkaline phosphatase 89 U/L 38-126 Not Available [facility] (Lab) [address] [facility] [place], [address], 07/13/2024 18:54:03 07/13/19 25 07/13/2024 COMPR EHENS JOSIAH METAB OLIC PANEL alanine aminotransfe rase 24 U/L 0-35 Not Available [facility] (Lab) [address] [place], [address], 07/13/2024 18:54:03 07/13/19 25 07/13/2024 COMPR EHENS JOSIAH METAB OLIC PANEL aspartate aminotransfe rase 33 U/L 15-37 Not Available [facility] (Lab) [address] [place], [address], 07/13/2024 18:54:03 07/13/19 25 07/13/2024 COMPR EHENS JOSIAH METAB OLIC PANEL bilirubin, total 0.70 mg/dL 0.20-1 .30 Not Available [facility] (Lab) [address] [place], [address], 07/13/2024 18:54:03 07/13/19 25 07/13/2024 COMPR EHENS JOSIAH METAB OLIC PANEL calcium 9.3 mg/dL 8.4-10 .2 Not Available [facility] (Lab) [address] [place], [address], 07/13/2024 18:54:03 07/13/19 25 07/13/2024 COMPR EHENS JOSIAH METAB OLIC PANEL total protein 7.4 g/dL 6.3-8. 2 Not Available [facility] (Lab) [address] [place], [address], 07/13/2024 18:54:03 07/13/19 25 07/13/2024 COMPR EHENS JOSIAH METAB OLIC PANEL albumin 4.3 g/dL 3.4-5. 0 Not Available [facility] (Lab) [address] [place], [address], 07/13/2024 18:54:03 07/13/19 25 07/13/2024 COMPR EHENS JOSIAH METAB OLIC PANEL globulin 3.1 g/dL 2.6-4. 2 Not Available [facility] (Lab) [address] [place], [address], 07/13/2024 18:54:03 07/13/19 25 07/13/2024 COMPR EHENS JOSIAH METAB OLIC PANEL A/G ratio 1.4 ratio 1.0-2. 0 Not Available [facility] (Lab) [address] [place], [address], 07/13/2024 18:54:03 07/13/19 25 07/14/2024 HEMOG LOBIN A1C HA1C 5.9 % 4.0-6. 0 Diabe arcenio Laura hough Crite brenda: <5.7% Consi stent with absen ce of diabe arcenio 5.7-6 .4% Consi stent with incre ased risk for diabe arcenio (pred iabet es) >OR=6 .5% Consi stent with diabe arcenio REFER ENCE: Diabe arcenio Care 2016, 39(Moraes ppl.1 ):s13 -s22 Not Available [facility] (Lab) [address] [place], [address], 07/14/2024 21:41:40 05/31/2004/23/2023 MAMMO , laura charlesg, digit al, bilat eral No observ ation record ed. [email or web address] Not Available 2022 18:54:43 06/17/2006/17/2023 MAMMO , tomos ynthe sis No observ ation record ed. [email or web address] Not Available 2023 11:15:04 03/14/20 24 03/13/2024 XR, knee, 3 view No observ ation record ed. [email or web address] [facility] [address] [address], [place], [address], 04/10/2024 11:48:15 04/27/2004/25/2024 MAMMO , scree france, digit al, bilat eral No observ ation record ed. [email or web address] Not Available 2023 08:57:20 07/13/1903/29/2024 bone densi ty No observ ation record ed. [facility] [address], [place], [address], 07/13/2024 18:42:37 07/14/1903/29/2024 bone densi ty No observ ation record ed. [facility] [address] [facility] [address], [place], [address], 07/14/2024 10:52:33 Result Notes None recorded. Problems Name Problem SNOMED Code Status Onset Date Resolution Date Notes Provider Name and Address Organization Details Recorded Time COVID-19 377261352 Active 2022 HENRIQUE Galarza, [facility] [employer] 3 11:14:17 Left Achilles tendiniti s 34166414104 9102 Active 2022 Tete Duncan MD [address], [place], [address] , [facility] [employer] 3 10:22:28 Pain in left foot 14797799598 9107 Active 2022 David Edmond DPM [address], [place], [address] , [facility] [employer] 3 11:14:03 Porokerat osis 206999368 Active 2022 David Edmond DPM [address], [address], [place], [address] , [facility] [employer] 3 11:15:20 Bone spur of left foot 42994944024 9108 Active 2022 David Edmond DPM [address], [place], [address] , [facility] 3 12:14:35 Steatosis of liver 266909363 Active 2022 Tete Duncan MD [address] [facility], [facility] [address], [place], [address] , [facility] 3 10:41:22 Mammograp hy abnormal 723499450 Active 2022 Tete Duncan MD [address] [facility], [facility] [address], [place], [address] , [facility] 3 10:42:47 Pain of right knee joint 35206840843 4100 Active 2023 Tete Duncan MD [address] [facility], [address] [address], [place], [address] , [facility] 4 09:19:45 Anxiety state 300464761 Completed Not Available [facility] 3 04:53:38 Thyroid nodule 727285084 Active Not Available [facility] 3 04:53:38 Long-term drug therapy Completed 202104/15/2022 Not Available [facility] 3 04:53:38 Edema 713478145 Active 2020 Not Available [facility] 3 04:53:38 Adult health examinati on Active 2021 Not Available [facility] 3 04:53:38 Pain in left lower limb 056282010 Completed 202104/15/2022 Not Available [facility] 3 04:53:39 Foot swelling 342467249 Completed Not Available [facility] 3 04:53:39 Thrombocy topenic disorder 109627771 Active 2020 Not Available [employer] 3 04:53:39 Knee pain Completed Not Available [facility] 3 04:53:39 Genital herpes simplex 34196627 Active Not Available [employer] 3 04:53:39 Osteoarth ritis 839430891 Active Not Available [facility] 3 04:53:39 Insect bite reaction 197280209 Completed Not Available [facility] 3 04:53:39 Hypothyro idism 92757177 Active Not Available [facility] 3 04:53:39 Obesity 640513367 Active Not Available [facility] [facility] 3 04:53:39 Anxiety 49712131 Active Not Available [facility] 3 04:53:39 Hyperlipi demia 42705837 Active Not Available [facility] 3 04:53:40 Alopecia 55575409 Active Not Available [facility] 3 04:53:40 Red eye 451844526 Completed Not Available [facility] 3 04:53:40 Hyperglyc emia 64198645 Active 2021 Not Available [facility] 3 04:53:40 Administr ation of influenza vaccine Completed 202104/15/2022 Not Available [facility] 3 04:53:40 Problem Notes None recorded. Procedures Surgical History Date Name Laterality Status Provider Name and Address Organization Details Recorded Time 06/01/20 23 Callus Debridement, One completed David Edmond DPM [address], [address], [place], [address], [employer] 06/02/2023 11:08:58 06/01/20 23 Plantar Fascia Injection Left Foot completed David Edmond DPM [address], [address], [place], [address], [employer] 06/02/2023 11:10:08 05/06/20 23 Callus Debridement, One completed David Edmond DPM [address], [address], [place], [address], [employer] 05/06/2023 12:26:02 04/08/20 23 Callus Debridement, One completed David Edmond DPM [address], [address], [place], [address], [employer] 04/08/2023 11:15:36 09/07/19 15 Most Recent Bone Density completed Not Available [facility] 08/19/2022 04:43:51 03/20/20 14 Date of Last Colonoscopy completed Not Available [facility] 08/19/2022 04:43:51 Meniscal trnspl knee w/scpe completed Clary CHATMAN [facility] 04/08/2023 11:30:17 Imaging Results Imaging Date Name Status LastModified by Organization Details LastModified Time 04/23/2023 MAMMO, screening, digital, bilateral completed BARCODE Information not available 05/31/2023 18:54:43 06/17/2023 MAMMO, tomosynthesis completed [email or web address] Information not available 07/01/2023 11:15:04 03/13/2024 XR, knee, 3 view completed [email or web address] [facility] [address] [place] [address], [address], 04/10/2024 11:48:15 04/25/2024 MAMMO, screening, digital, bilateral completed Information not available 05/01/2024 08:57:20 03/29/2024 bone density completed [address], [address], 07/13/2024 18:42:37 03/29/2024 bone density completed [address], [address], 07/14/2024 10:52:33 Procedure Notes None recorded. Medical Equipment None Reported. Allergies No known drug allergies Medications Name Sig Start Date Stop Date Status Note LastModified by Organization Details LastModified Time status covid-19/f baudilio a-b antigen tst TEST DIRECTED TODAY 03/13 completed Not Available Not Available Not Available cyclobenza cindy 10 mg tablet TK 1 T PO TID PRN active Not Available Not Available No t Available amoxicilli n 500 mg capsule Take 1 capsule 3 times a day by oral route for 7 days. active Not Available Not Available No t Available acetaminop hen 325 mg tablet TAKE 2 TABLETS BY MOUTH EVERY 6 HOURS. 03/13 completed Not Available Not Available Not Available Estring 2 mg (7.5 mcg/24 hour) vaginal ring 01/18 completed Not Available Not Available Not Available ketoconazo le 2 % shampoo active as needed Not Available Not Available Not Available citalopram 40 mg tablet TAKE 1 TABLET BY MOUTH EVERY DAY active Not Available Not Available No t Available azithromyc in 250 mg tablet Take 2 TABLET EVERY DAY by oral route for 1 day. then 1 tab a day for 4 days 05/19 completed Not Available Not Available Not Available ibuprofen 800 mg tablet TK 1 T PO TID active Not Available Not Available No t Available benzonatat e 200 mg capsule Take 1 capsule 3 times a day by oral route for 5 days. active Not Available Not Available No t Available spironolac tone 100 mg tablet TAKE 1 TABLET BY MOUTH EVERY DAY active Takes 150mg daily Not Available Not Available Not Available metronidaz ole 500 mg tablet active Not Available Not Available Not Available sulfametho xazole 800 mg-trimeth oprim 160 mg tablet active Not Available Not Available No t Available peg-electr olyte solution 420 gram oral solution active Not Available Not Available Not Available tramadol 50 mg tablet active Not Available Not Available Not Available citalopram 20 mg tablet active Not Available Not Available Not Available levothyrox ine 50 mcg tablet TK 1 T PO QD active Not Available Not Available No t Available cephalexin 500 mg capsule TK 1 C PO QID 05/19 completed Not Available Not Available Not Available simvastati n 20 mg tablet TAKE 1 TABLET BY MOUTH EVERY DAY active Not Available Not Available No t Available docusate sodium 100 mg capsule TAKE ONE CAPSULE BY MOUTH TWICE DAILY NEEDED FOR CONSTIPA TION active Not Available Not Available No t Available diclofenac sodium 75 mg tablet,del ayed release TAKE 1 TABLET BY MOUTH TWICE DAILY active Not Available Not Available No t Available furosemide 20 mg tablet TAKE 1 TABLET BY MOUTH EVERY DAY 06/10 completed Not Available Not Available Not Available lorazepam 1 mg tablet Take 1 tablet 3 times a day by oral route. active Not Available Not Available No t Available ibuprofen 600 mg tablet TAKE 1 TABLET BY MOUTH EVERY 6 HOURS 03/13 completed Not Available Not Available Not Available methylpred nisolone 4 mg tablets in a dose pack TK UTD 04/25 completed Not Available Not Available Not Available Vitamin D2 1,250 mcg (50,000 unit) capsule Take 1 capsule every week by oral route for 90 days. active Not Available Not Available No t Available hydrocodon e 10 mg-acetami nophen 650 mg tablet active Not Available Not Available No t Available clobetasol 0.05 % scalp solution APPLY TO SCALP 3 TIMES A WEEK 11/09 completed Not Available Not Available Not Available naproxen 500 mg tablet TAKE 1 TABLET BY MOUTH TWICE DAILY 03/13 completed Not Available Not Available Not Available spironolac tone 50 mg tablet Take 1 tablet every day by oral route. active Not Available Not Available No t Available oxycodone 5 mg tablet TAKE 1 TABLET BY MOUTH EVERY 4 HOURS NEEDED 03/13 completed Not Available Not Available Not Available Vitamin D3 25 mcg (1,000 unit) capsule Take 4 capsules every day by oral route. 09/22 completed Not Available Not Available Not Available cyclobenza cindy 5 mg tablet active Not Available Not Available Not Available clobetasol 0.05 % shampoo active Not Available Not Available Not Available nitrofuran toin monohydrat e/macrocry stals 100 mg capsule 08/28 completed Not Available Not Available Not Available Vitamin C active Not Available Not Cira ilable Not Available Fish Oil active Not Available Not Avai lable Not Available Vitamin D3 active Not Available Not Av ailable Not Available One A Day active Not Available Not Cira ilable Not Available Paxlovid 300 mg (150 mg x 2)-100 mg tablets in a dose pack FOLLOW PACKAGE DIRECTIO NS 03/13 completed Not Available Not Available Not Available Vitals Date Recorded Body height Body mass index (BMI) Body weight Heart rate Respiratory rate Oxygen saturation Oxygen saturation in Arterial blood by Pulse oximetry Systolic blood pressure Diastolic blood pressure Provider Name and Address Organization Details Last Updated DateTime 4 168.91 cm 41 kg/m2 016067. 83 g 83 /min 14 /min 99 % 99 % 143 mm[Hg] 86 mm[Hg] Clary Meyers [facility] 4 16:35:28 Date Recorded Body height Body mass index (BMI) Body weight Body temperature Heart rate Oxygen saturation Oxygen saturation in Arterial blood by Pulse oximetry Systolic blood pressure Diastolic blood pressure Provider Name and Address Organization Details Last Updated DateTime 4 168.91 cm 42.5 kg/m2 027864. 88 g 97 [degF] 71 /min 98 % 98 % 130 mm[Hg] 80 mm[Hg] Hailey Ortiz Tangela [facility] [employer] [facility] 4 15:22:10 Date Recorded Body height Body mass index (BMI) Body weight Body temperature Heart rate Oxygen saturation Oxygen saturation in Arterial blood by Pulse oximetry Systolic blood pressure Diastolic blood pressure Provider Name and Address Organization Details Last Updated DateTime 4 168.91 cm 41.2 kg/m2 262188. 42 g 97.8 [degF] 86 /min 96 % 96 % 128 mm[Hg] 84 mm[Hg] Anna Piotr aster Tangela [facility] [employer] [facility] 4 09:05:13 Date Recorded Body weight Body mass index (BMI) Body height Body temperature Heart rate Oxygen saturation Oxygen saturation in Arterial blood by Pulse oximetry Systolic blood pressure Diastolic blood pressure Provider Name and Address Organization Details Last Updated DateTime 5 876794. 42 g 41.8 kg/m2 167.64 cm 97.5 [degF] 98 /min 95 % 95 % 134 mm[Hg] 70 mm[Hg] Anna Saldaña aster [facility] [employer] [facility] 5 09:14:53 Date Recorded Body height Body mass index (BMI) Body weight Heart rate Respiratory rate Oxygen saturation Oxygen saturation in Arterial blood by Pulse oximetry Systolic blood pressure Diastolic blood pressure Provider Name and Address Organization Details Last Updated DateTime 5 167.64 cm 41.8 kg/m2 301806. 42 g 69 /min 14 /min 98 % 98 % 118 mm[Hg] 71 mm[Hg] Clary Finley [facility] [employer] [facility] 5 10:22:08 Social History Question Answer Notes LastModified by Organizat ion Details LastModified Time Tobacco Smoking Status Never Smoker Not Available [employer] 08/19/2022 04:34:11 Do You Have An Advance Directive? No [id number] Information not available 08/19/2022 What Is Your Level Of Alcohol Consumption? Occasional Information not available 04/08/2023 What Is Your Level Of Caffeine Consumption? Occasional [id number] Information not available 08/19/2022 How Much Tobacco Do You Chew? None [id number] Information not available 08/19/2022 What Type Of Diet Are You Following? REGULAR [id number] Information not available 08/19/2022 Which Illicit Or Recreational Drugs Have You Used? 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 No [id number] Information not available 08/19/2022 What Was The Date Of Your Most Recent Tobacco Screening? 04/08/2023 Information not available 04/08/2023 Have You Ever Been Counseled For Unhealthy Alcohol Use? No Information not available 04/08/2023 Do You Use Any Illicit Or Recreational Drugs? No Information not available 04/08/2023 Do You Use Sunscreen Routinely? No [id number] Information not available 08/19/2022 Has Tobacco Cessation Counseling Been Provided? No Information not available 04/08/2023 Do You Or Have You Ever Used Any Other Forms Of Tobacco Or Nicotine? No Information not available 04/08/2023 Sex: Female Functional Status Question Answer Note LastModified by [employer] ion Details LastModified Time What is your exercise level? Heavy [id number] Information not available 08/19/2022 Mental Status None recorded. Family History Relationship Description Onset Age of this Age Resolved Age Notes LastModified by Organization Details LastModified Time Father Diabetes mellitus [id number] Not available 08/19/2022 04:44:00 Mother Diabetes mellitus [id number] Not available 08/19/2022 04:44:00 Mother Heart disease [id number] Not available 08/19/2022 04:44:00 Unspecified Relation Family history of stroke Not available 2022 11:25:58 Father Hypertensive disorder Not available 2022 11:29:35 Father Osteoporosis Not availa ble 04/08/2023 11:29:52 Mother Hypertensive disorder Not available 2022 11:29:35 Mother Osteoporosis Not availa ble 04/08/2023 11:29:52 Medical History Condition Response THYROID DISEASE Y ANXIETY DISORDER Y DEPRESSION (INCLUDING POST ) Y Gynecological History Statement/Question Response Date of Last Mammogram 09/12/2015 Date of Last Colonoscopy 03/20/2014 Most Recent Bone Density 09/06/2014 Obstetrics History GPAL:G 0 P 0 0 0 0 Immunizations Vaccine Type Date Status Note Provider Nam e and Address Organization Details Recorded Time SARS-COV-2 (COVID-19) vaccine, UNSPECIFIED 1 completed Not Available [facility] 08/19/2022 05:04:04 SARS-COV-2 (COVID-19) vaccine, UNSPECIFIED 1 completed Not Available [facility] 08/19/2022 05:04:04 Influenza, split virus, quadrivalent, PF 2 completed Not Available [facility] 08/19/2022 05:04:05 Influenza, split virus, quadrivalent, PF 1 completed Not Available [facility] 08/19/2022 05:04:05 Past Encounters Encounter ID Performer Location Encounter Start Date Encounter Closed Date Diagnosis/Indication Diagnosis SNOMED-CT Code Diagnosis ICD10 Code Diagnosis Note [id number] [facility] [address] [address] 10/21/2020 00:00:00 10/21/2020 12:21:43 [id number] [facility] [address] [address] 11/19/2020 00:00:00 11/19/2020 10:47:14 [id number] [facility] [address] [address] 03/24/2021 00:00:00 03/24/2021 10:39:11 [id number] [facility] [address] [address] 04/01/2021 00:00:00 04/01/2021 12:28:52 [id number] [facility] [address] [address] 07/29/2021 00:00:00 07/29/2021 09:36:55 [id number] [facility] [address] [address] 08/28/2021 00:00:00 08/28/2021 16:44:05 [id number] [facility] [address] [facility] [place] [address] 11/27/2021 00:00:00 11/27/2021 15:39:15 [id number] [facility] [address] [facility] [place] [address] 04/16/2022 00:00:00 04/16/2022 17:27:17 [id number] Tete Duncan MD [facility] [address] [facility] [place] [address] 10/05/2022 09:41:28 10/05/2022 10:13:19 Hypothyroidism 12092473 E03.9 no meds needed Anxiety 45620698 F41.9 under good control with meds Obesity 717699914 E66.9 advised to lose weight, watch diet Alopecia 56358696 L65.9 spironolac tone helps Hyperlipidemia 04615148 E78.5 on meds, labs next time Edema 040424654 R60.9 improved Thrombocyt openic disorder 961602501 D69.6 stable and better Osteoarthritis 915625807 M19.90 ot Adult heal th examination 061293047 Z00.00 Colonoscop y- 04/17/2014 Mammogram- 02/09 at [facility]- 09/2018, 11/06/2021 by Poncho ax- NEVERFLU- OV ID- 09/03/20. 09/29/20 [id number] Tete Duncan MD [facility] [address] [facility] [place] [address] 01/27/2023 09:46:30 01/27/2023 10:26:36 Hypothyroidism 74383970 E03.9 no meds, being watchd Anxiety 40389071 F41.9 under good control with meds Obesity 311649424 E66.9 advised to lose weight, watch diet Alopecia 97261257 L65.9 seeing derm Hyperlipidemia 70802439 E78.5 on meds, Edema 369362816 R60.9 improved Thrombocyt openic disorder 840278038 D69.6 stable and better Osteoarthritis 480009176 M19.90 [facility] Adult heal th examination 270427625 Z00.00 Colonoscop y- 04/17/2014 Mammogram- 02/09 at [facility]- 09/2018, 11/06/2021 by Poncho rendon- NEVERFLU- OV ID- 09/03/20. 09/29/20 Hyperglycemia 37853892 R 73.9 watching diet, nl A1c Left Achil les tendinitis 3377710917 88105 M76.62 naprosyn, exercises discussed [id number] David Edmond DPM [facility] [place] [address] [place] [address], [address] [place] [address] 04/08/2023 10:47:56 04/09/2023 11:27:46 Pain in left foot 9851993724 12535 M79.672 recommend supportive shoe gear such as new balance dailyno strenuous activities follow-up in 1 month Left Achil les tendinitis 6476906210 50304 M76.62 continue naproxen per PCPrice therapystr etching exercises dispensedn o strenuous activities Recommend supportive shoe gear such as new balanceFol low-up in 1 month possible physical therapy at that time Porokeratosis 015524276 Q82.8 plantar right foot, sub 1st metatarsal headdebrid ed without incidentre commend Amlactin lotion 3 times daily over-the-c ounterReco mmend use of pumice stone dailyRecom mend supportive athletic shoe gear daily Bone spur of left foot 3150113012 27166 M25.775 left foot x-rays reviewed [id number] David Edmond DPM [facility] [place] [address] [facility], [address] [place] [address] 05/06/2023 12:03:19 05/06/2023 12:29:14 Left Achilles tendinitis 0327872282 76354 M76.62 continue naproxen per PCPrice therapyRx physical therapystr etching exercises dispensedn o strenuous activities Recommend supportive shoe gear such as new balanceFol low-up in 1 month Porokeratosis 529521791 Q82.8 plantar right foot, sub 1st metatarsal headdebrid ed without incidentre commend Amlactin lotion 3 times daily over-the-c ounterReco mmend use of pumice stone dailyRecom mend supportive athletic shoe gear daily [id number] Tete Duncan MD [facility] [address] [place] [address] 05/26/2023 09:53:41 05/26/2023 10:47:30 Adult health examination 571652765 Z00.00 Z13.220 Colonoscop y- 04/17/2014 Mammogram- 2022 at [facility]- 09/2018, 11/06/2021 by G[facility] ax- NEVERFLU- 03/2022, OVID- 09/03/20. 09/29/20 Hypothyroidism 38991188 E03.9 no meds, being watched Anxiety 98945678 F41.9 under good control with meds Obesity 487190419 E66.9 advised to lose weight, watch diet Alopecia 00368596 L65.9 seeing derm Hyperlipidemia 75794494 E78.5 on meds, Edema 316489990 R60.9 improved Thrombocyt openic disorder 280032192 D69.6 seeing hematology and just had labs Osteoarthritis 211405762 M19.90 otc Hyperglycemia 87535292 R 73.9 watching diet, Left Achil les tendinitis 8505217129 18480 M76.62 naprosyn, getting PT Steatosis of liver 1007 K76.0 LOSE WEIGHT, WATCH DIET Long-term drug therapy 380579451 Z79.899 Mammography abnormal 168 348653 R92.8 getting compressio n views [id number] David Edmond DPM [facility] [place] [address], [address] [place] [address] 06/01/2023 17:43:08 06/02/2023 16:46:41 Left Achilles tendinitis 5522675964 88153 M76.62 Injection today-disc ontinue physical therapy for 2 weeksNo strenuous activities Continue easy stretching at [facility] physical therapy-ho ld for 2 weeksRecom mend supportive shoe gear such as new balanceFol low-up in 3-4 weeks Porokeratosis 755184260 Q82.8 plantar right foot, sub 1st metatarsal headdebrid ed without incidentre commend Amlactin lotion 3 times daily over-the-c ounterReco mmend use of pumice stone dailyRecom mend supportive athletic shoe gear dailyFollo w-up as needed [id number] David Edmond DPM [facility] [place] [address], [address] [place] [address] 06/29/2023 16:17:50 07/21/2023 07:16:57 Left Achilles tendinitis 3497118702 50651 M76.62 Continue easy stretching at [facility] physical therapy-ma y finishReco mmend supportive shoe gear such as new balanceFol low-up as needed [id number] Tete Duncan MD [facility] [address] [facility] [place] [address] 11/10/2023 15:17:13 11/10/2023 15:51:28 Adult health examination 788451168 Z00.00 Z13.220 Colonoscop y- 04/17/2014 Mammogram- 06/17/2023 at [facility]- 09/2018, 11/06/2021 by [facility] - [facility]neumov ax- NEVERFLU- 03/2022, 3COVID- 09/03/20. 09/29/20 Hypothyroidism 71836498 E03.9 no meds, being watched Anxiety 95674571 F41.9 under good control with meds Obesity 958759012 E66.9 advised to lose weight, watch diet, has gained weight Alopecia 44284868 L65.9 seeing derm Hyperlipidemia 48332230 E78.5 under control Edema 469719306 R60.9 improved Thrombocyt openic disorder 716218343 D69.6 seeing hematology and just had labs Osteoarthritis 463108603 M19.90 otc Hyperglycemia 68823396 R 73.9 watching diet, Steatosis of liver 88936 1007 K76.0 advised to be on low fat diet Mammography abnormal 168 633768 R92.8 compressio n views nl Depression screening 171 186984 Z13.31 Thyroid nodule 336338910 E04.1 to get surgery Screening for malignant neoplasm of colon 708826943 Z12.11 Screening for osteoporosis 431190565 Z13.820 lady mooney, gets from her gyne [id number] Tete Duncan MD [facility] [address] [place] [address] 03/13/2024 08:59:36 03/13/2024 09:31:11 Adult health examination 513406149 Z00.00 Z13.220 Colonoscop y- 04/17/2014 Mammogram- 06/17/2023 at [facility]- 09/2018, 11/06/2021 by MAIL PROCESSING ASSOCIATE - DUEPneumov ax- NEVERFLU- 03/2022, OVID- 09/03/20. 09/29/20 Hypothyroidism 49468926 E03.9 no meds, being watched, had labs at endo recently Anxiety 07312953 F41.9 under good control with meds Obesity 966169599 E66.9 advised to lose weight, watch diet, Alopecia 10115495 L65.9 seeing derm Hyperlipidemia 82045823 E78.5 under control Edema 685917237 R60.9 improved Thrombocyt openic disorder 242425498 D69.6 seeing hematology Osteoarthritis 961112755 M19.90 otc Hyperglycemia 42953675 R 73.9 watching diet, Steatosis of liver 98318 1007 K76.0 advised to be on low fat diet Mammography abnormal 168 103149 R92.8 compressio n views nl Thyroid nodule 754867040 E04.1 s/p surgery Pain of ri ght knee joint 4219483137 77795 M25.561 Long-term drug therapy 869587288 Z79.899 had vit d checked at gyne Postmenopausal state 764 58704 Z78.0 Screening for malignant neoplasm of colon 961252149 Z12.11 [id number] Tete Duncan MD [facility] [address] [facility] [place] [address] 07/13/2024 09:07:54 07/13/2024 09:54:23 Adult health examination 996204094 Z00.00 Z13.220 Colonoscop y- 04/17/2014 - Ordered againMammo gram- 04/25/2024 Dexa- 04/13, nlPneumova x- NEVERFLU- 03/2022, 2022, OVID- 09/03/20. 09/29/20 Hypothyroidism 76430497 E03.9 no meds, being watched, had labs at [facility] , reviewed Anxiety 84324400 F41.9 under good control with meds Obesity 266940314 E66.9 advised to lose weight, watch diet, Alopecia 78361439 L65.9 seeing derm Hyperlipidemia 51992126 E78.5 under control Edema 755680165 R60.9 improved Thrombocyt openic disorder 863823762 D69.6 seeing hematology Osteoarthritis 970980245 M19.90 otc Hyperglycemia 59280539 R 73.9 advised to watch diet and lose weight Steatosis of liver 25321 1007 K76.0 advised to be on low fat diet Thyroid nodule 589607780 E04.1 s/p surgery Pain of ri ght knee joint 9855942000 29149 M25.561 better Screening for malignant neoplasm of colon 330652454 Z12.11 [id number] David Edmond DPM [facility] [place] [address] [place] [address] 07/13/2024 10:14:53 07/14/2024 13:41:32 Left Achilles tendinitis 0989807302 67119 M76.62 Continue easy stretching at [facility] physical therapy- AchillesRe commend supportive shoe gear such as new balanceFol low-up 4 weeks Health Concerns Section Related Observation LastModified by Organization Detai ls LastModified Time None Recorded Concern Status LastModified by Organization Details LastModified Time None Recorded Advance Directives Directive N: Payers Encounter Date Sequence Insurance Name Policy Number Policy Garcia Covered Member ID Garcia Member ID Guarantor Name 06/29/2023 1 [employer] - OPEN ACCESS [id number] Karishma Harris [id number] OI Karishma Harrsi 11/10/2023 1 [employer] - OPEN ACCESS [id number] Karishma Harris [id number] OI Karishma Harris 03/13/2024 1 [employer] - OPEN ACCESS [id number] Karishma Harris [id number] OI Karishma Harris 07/13/2024 1 [employer] - OPEN ACCESS [id number] Karishma Harris [id number] OI Karishma Harris 07/13/2024 1 [employer] - OPEN ACCESS [id number] Karishma Harris [id number] OI Karishma Harris Notes Date Note Type Note Provider Name and Address Organization Details Recorded Time 06/29/2023 text/html . Patient is a 58-year-old female who returns the office for left Achilles tendonitis. Patient has discontinued physical therapy and at last visit underwent a steroid injection which she states she is 90% improved. I did discuss at this point she can continue activities and physical therapy at home. Patient at this point I do not feel needs to continue formal physical therapy unless she starts to worsen. Patient agrees with the treatment plan and will continue at-home therapy with supportive shoe gear. Patient denies any other complaints. David Edmond DPM [address], [place], [address], [place] - [facility] [employer] 07/20/2023 13:50:05 11/10/2023 text/html Doing fine, compliant to medications, no side affects, here for follow up. C/o Neck has been hurting and also has questions regarding her thyroid Throid nodule- suspicious for follicular neoplasm, to get surgery Anxiety- Under control, on meds, no symptoms of depression or anxiety, sleep fine,Meds- Citalopram 40 mg dailyAlopecia-On meds,seen derm , had local shotsMeds- Spironolactone 100 mg dailyObesity- advised to watch diet, Has gained 9 lbsThyroid nodule- was being observed, now size has gone up and had biopsy, no report but was told was negHyperlipidemia- mild elevation, watching diet, on medsThrombocytopenia - was 116 (04/27/2022) ,sees hematology once a years/p biopsy of the right arm nodule Pre-diabetes- A1c was 5.5 (05/31/23), advised to watch diet Fatty liver- seen on ultra sound by gyne, LFT are nl Abn mammogram- getting compression views Tete Duncan MD [address], [address], [place], [address], [facility] [employer] 11/10/2023 16:53:49 03/13/2024 text/html Doing fine, compliant to medications, no side affects, here for follow up.PT IS FASTING Throid nodule- was suspicious for follicular neoplasm, had surgery and was told it was benign ( no reports ) Anxiety- Under control, on meds, no symptoms of depression or anxiety, sleep fine,Meds- Citalopram 40 mg dailyAlopecia-On meds,seen derm , had local shotsMeds- Spironolactone 150 mg dailyObesity- advised to watch diet, Has lost 8 lbsThyroid nodule- was being observed, now size has gone up and had biopsy, no report but was told was negHyperlipidemia- mild elevation, watching diet, on meds, labs next yimeThrombocytopenia - was 116 (04/27/2022) ,sees hematology once a years/p biopsy of the right arm nodule Pre-diabetes- A1c was 5.5 (05/31/23), advised to watch diet Fatty liver- seen on ultra sound by gyne, LFT are nl Abn mammogram- compression views were nl 06/12 Tete Duncan MD [address] [facility], [facility] [address], [place], [address], [facility] [employer] 03/13/2024 09:25:45 07/13/2024 text/html Doing fine, compliant to medications, no side affects, here for follow up.PT IS FASTING ( [employer] ) Anxiety- Under control, on meds, no symptoms of depression or anxiety, sleep fine,Meds- Citalopram 40 mg dailyAlopecia-On meds,seen derm , had local shotsMeds- Spironolactone 150 mg dailyObesity- advised to watch diet,has not lostThyroid nodule- was being observed, now size has gone up and had biopsy, no report but was told was neg, seen endo Dr Nicholslipidemi a- mild elevation, watching diet, on meds, labsThrombocytopenia - was 116 (04/27/2022) ,sees hematology once a year , needs albss/p biopsy of the right arm nodule Pre-diabetes- A1c was 5.5 (05/31/23), advised to watch diet, did not get labs Fatty liver- seen on ultra sound by gyne, LFT are nl Abn mammogram- compression views were nl 06/12 Osteoarthritis- right knee, had treatment and better Tete Duncan MD [address], [address], [place], [address], [employer] 07/13/2024 09:40:58 07/13/2024 text/html . Patient is a 59-year-old female she presents to the office with complaints of Achilles pain to the left Achilles she states that she has pain when she is walking she denies any injury to the Achilles. Patient states when she is walking upstairs and walking for extended periods of time her calf gets tight causing increased pain she had repeat x-rays today which shows a moderate spur at the Achilles insertion. Patient denies any open wounds. Patient states when she is at rest it does feel better. Patient denies any other complaints she has been to physical therapy which this resolved her issue and she states that after physical therapy she did not continue stretching which has likely resulted in the return. David Edmond DPM [address], [place], [address], [employer] 07/13/2024 10:49:53 OBGyn Episode No OBEpisode recorded.
--- OUTSIDE RECORDS SUMMARY | 2024-07-26 17:28 | XMS_ITS | Encounter Summary ---
Author Organization [facility] Healthcare Address [address] [place] [address] Care Team Providers Care Assessor Name Role Phone Ernie Zhang MD Primary Care Provider [phone] Grace Mccabe MD Unavailable [phone] Reason for Visit * Diagnostic Imaging (Routine) - Closed Specialty Diagnoses / Procedures Referred By [facility] Referred To Contact Procedures Breast Imaging Screening Outside Reference Transcribed Order, Provider Referral ID Status Reason Start Date Expiration Date Visits Re quested Visits Authorized [id number] Closed 05/12/2023 06/10/2024 1 1 Encounter Details Date Type Department Care Team ([facility] st Contact Info) Description 09/23/2018 Hospital Encounter [facility] [address] [place] [id number] Social History Tobacco Use Types Packs/Day Years Used Date Smoking Tobacco: Never Smokeless Tobacco: Never Alcohol Use Standard Drinks/Week Comments Yes 0 (1 standard drink = 0.6 oz pur e alcohol) Comments Unknown Sex and Gender Information Value Date Recorded Sex Assigned at Not on file Legal Sex Female 4:15 AM [employer] Gender Identity Not on file Sexual Orientation [...] CDT) Impressions [facility] - 05/12/2023 2:40 PM [employer] These images are for Reference purposes only and have not been reviewed by [facility] Radiology. There will be no report generated by a [facility] Radiologist. Narrative [facility] - 05/12/2023 2:40 PM [employer]UR[employer] EXAMINATION: Images For Reference Purposes Only us Provider Transcribed Order IMG MAMMO PROCEDURES Final Result [facility] documented in this encounter Visit Diagnoses Not on filedocumented in this encounter Care Teams Assessor Relationship Specialty Start Date End Date Ernie Zhang MD PCP - General Internal Medicine 09/21/18 Grace Mccabe MD [address] [address] Referring Physician Gynecology 09/21/18 documented as of this encounter
--- OUTSIDE RECORDS SUMMARY | 2024-07-26 17:28 | XMS_ITS | Clinical Summary ---
Author Organization [facility] Address [address] [place] [address] Care Team Providers Care Exhibit Specialist Name Role Phone Ernie Zhang MD Primary Care Provider [phone] Lloyd Mendez MD Unavailable [phone] Source Comments [facility],non-owned Affiliates and Associated Physician Practices is amultiple site organization consisting of ambulatory clinics and hospital sitesin [place], [place], [place] and [place]. This disclosure is being madepursuant to the Care Everywhere program and may not contain all information available regarding this patient. Last updated 18.[facility] Allergies No known active allergies Medications * Be aware that medications may not be up to date on this document. Alwaysverify current medications with the patient. Medication Sig Dispensed Refills Start Date End Date Status citalopram (CeleXA) 40 MG tablet Take 1 (one) tablet by mouth at bedtime 11/08/2023 Active clobetasol (Temovate) 0.05 % solution Apply to affected area as needed 10/13/2022 Active simvastatin (Zocor) 20 MG tablet Take 1 (one) tablet by mouth at bedtime 10/26/2023 Active spironolactone (Aldactone) 100 MG tablet Take 1 (one) tablet by mouth once daily 03/15/2023 Active spironolactone (Aldactone) 50 MG tablet Take 1 (one) tablet by mouth at bedtime 11/09/2023 Active ascorbic acid (VITAMIN C) 500 MG tablet Take 1 (one) tablet by mouth once daily Active Cholecalciferol (Vitamin D3) 125 MCG (5000 UT) Take 1 tablet by mouth once daily Active Gipsy-3 Fatty Acids (fish oil) 1000 MG capsule Take 1 (one) capsule by mouth once daily Active oxyCODONE, immediate release, (Roxicodone) 5 MG tabletIndications:T hyroid nodule,S/P partial thyroidectomy Take 1 (one) tablet by mouth every 4 hours as needed 12 tablet 12/03/2023 Active Additional Information Patient not taking.Reported on 12/31/2023 acetaminophen (Tylenol) 325 MG tablet Take 2 (two) tablets by mouth every 6 hours Maximum allowable Acetaminophen amount = 4 Grams (4000 mg) / 24 hours. 120 tablet 12/03/2023 Active Additional Information Patient not taking.Reported on 12/31/2023 ibuprofen (Motrin) 600 MG tablet Take 1 (one) tablet by mouth every 6 hours 60 tablet 12/03/2023 Active Additional Information Patient not taking.Reported on 12/31/2023 docusate sodium (Colace) 100 MG capsule Take 1 (one) capsule by mouth 2 times daily as needed for Constipation 20 capsule 12/03/2023 Active Additional Information Patient not taking.Reported on 12/31/2023 Active Problems Problem Noted Date Diagnosed Date [...] Mass Index 41.74 12/31/2023 1:48 PM CDT Plan of Treatment Health Maintenance Due Date Last Done Comments COLOGUARD (AGES 45-75) - COL ON CA SCREENING 1963 COLON MONITORING 1963 COLONOSCOPY - COLON CA SCREENING 1963 CT COLONOGRAPHY - COLON CA SCREENING 1963 Colorectal Cancer Screening 1963 FIT - COLON CA SCREENING 1963 FLEX SIG - COLON CA SCREENING 1963 MAMMOGRAM 1963 PAP SMEAR 1963 HIV SCREENING 1978 HEPATITIS C SCREENING 03/05/1981 DTAP/TDAP/TD VACCINES (1 - Tdap) 1982 PNEUMOCOCCAL VACCINE 50+ (1 of 1 - PCV) 2013 ZOSTER VACCINE (1 of 2) 2013 Respiratory Syncytial Virus (RSV) Vaccine Pt: or over 60 yrs (1 - Risk 60-74 years 1-dose series) 2023 COVID-19 VACCINE ( - 2023-2 5 season) 2024 INFLUENZA VACCINE (#1) 2024 DEPRESSION SCREENING 06/21/2024 SCREENING FOR DIABETES 11/22/2026 11/23/2023 HEPATITIS B VACCINE Aged Out No longe r eligible based on patient's age to complete this topic HIB VACCINE Aged Out No longer eligi ble based on patient's age to complete this topic HPV VACCINE Aged Out No longer eligi ble based on patient's age to complete this topic MENINGOCOCCAL (Group B) VACCINE Aged Out No longer eligible based on patient's age to complete this topic MENINGOCOCCAL VACCINE Aged Out No betsey juan eligible based on patient's age to complete this topic Procedures Procedure Name Priority Date/Time Associated Diagnosis Comments BASIC METABOLIC PANEL (CALCIUM TOTAL) Routine 11/23/2023 2:03 PM CDT Thyroid nodule from Last 3 Months or Most Recently Relevant to Health Maintenance Results * (ABNORMAL) BASIC METABOLIC PANEL (CALCIUM TOTAL) (11/23/2023 2:03 PM CDT) BUN 17 7 - 26 mg/dL 11/23/2023 3:13 PM [facility] Creatinine 0.96 0.56 - 0.96 mg/dL 11/23/2023 3:13 PM [facility] Sodium 137 136 - 145 mmol/L [...] 11/23/2023 2:03 PM CDT 11/23/2023 2:43 PM CDT Malcolm Hampton MD LAB - CHEMISTRY ORDE CL [facility] Organization Address City/State/ZIP Co de Phone Number [facility] [address] [place] [address], [facility] [phone] from Last 3 Months or Most Recently Relevant to Health Maintenance Advance Directives * Full Code (Latest Code Status on File) Date Activated Date Inactivated Comments 12/02/2023 12:24 PM 12/03/2023 11:25 AM Care Teams Exhibit Specialist Relationship Specialty Start Date End Date Ernie Zhang MD [address] [place] [id number] PCP - General Internal Medicine 11/23/23 Lloyd Mendez MD [address] [place] [address] Physician Internal Medicine 11/23/23
--- OUTSIDE RECORDS SUMMARY | 2024-07-26 17:28 | XMS_ITS | Referral Summary ---
Author Organization [facility] Address [address] [place] [address] Care Team Providers Care Asphalt Screed Operator Name Role Phone Ernie Zhang MD Primary Care Provider Grace Mccabe MD Unavailable [phone] Rip Evans MD Unavailable [phone] Encounters Date Type Department Care Team Description 07/13/2024 Orders Only [facility] Scanning, Provider 05/09/2024 7:30 AM TELEPHONIC NURSE Lab [facility] [address] [place] [address] Thrombocytopenia, unspecified (HCC) 05/09/2024 8:00 AM TELEPHONIC NURSE Office Visit [facility] Marrow Transplant [address] [place] [address] Acosta Gonzales DNP Thrombocytopenia, unspecified (HCC) (Primary Dx) 04/25/2024 7:15 AM TELEPHONIC NURSE - 04/25/2024 11:59 PM TELEPHONIC NURSE Hospital Encounter [facility] Breast Imaging [facility] ([facility]) [address] [place] [address] Screening mammogram, encounter for Discharge Disposition: Discharge to home or self care from Last 3 Months Allergies No known active allergies Medications citalopram [...] left lower extremity 02/2023 Thrombocytopenia, unspecified 01/09/2019 Immunizations Name Administration Dates Next Due Influenza, Quadrivalent, Spl it, Preservative Free, Intramuscular 04/16/2022,03/24/2021 Sars-CoV-2, Unspecified 09/29/2020,09/03/2020 Social History Tobacco Use Types Packs/Day Years Used Date Smoking Tobacco: Never Smokeless Tobacco: Never Tobacco Cessation:Counseling Given: Not Answered Alcohol Use Standard Drinks/Week Comments Yes 0 (1 standard drink = 0.6 oz pur e alcohol) Comments Unknown Sex and Gender Information Value Date Recorded Sex Assigned at Not on file Legal Sex Female 4:15 AM TELEPHONIC NURSE Gender Identity Not on file Sexual Orientation Not on file Last Filed Vital Signs Vital Sign Reading Time Taken Comments Blood Pressure 126/83 05/09/2024 8:04 AM TELEPHONIC NURSE Pulse 65 05/09/2024 8:04 AM TELEPHONIC NURSE Temperature 36.2 C (97.2 F) 05/09/2024 8:04 AM TELEPHONIC NURSE Respiratory Rate 18 05/09/2024 8:04 AM TELEPHONIC NURSE Oxygen Saturation 96% 05/09/2024 8:04 AM TELEPHONIC NURSE Inhaled Oxygen Concentration - - Weight 118.5 kg (261 lb 3.2 oz) 05/09/2024 8:01 AM TELEPHONIC NURSE Height 167.6 cm (5' 6 ) 05/13/2021 8:37 AM TELEPHONIC NURSE Body Mass Index 42.16 05/13/2021 8:37 AM TELEPHONIC NURSE Plan of Treatment Not on file Procedures Procedure Name Priority Date/Time Associated Diagnosis Comments SCAN - LABS 07/13/2024 EGFR Routine 05/09/2024 7:47 AM TELEPHONIC NURSE Thrombocytopenia, unspecified (HCC) DIFFERENTIAL AUTO Routine 05/09/2024 7:4 7 AM TELEPHONIC NURSE Thrombocytopenia, unspecified (HCC) CBC WITH AUTO DIFFERENTIAL Routine 05/09/2024 7:47 AM TELEPHONIC NURSE Thrombocytopenia, unspecified (HCC) COMPREHENSIVE METABOLIC PANEL Routine 05/09/2024 7:47 AM TELEPHONIC NURSE Thrombocytopenia, unspecified (HCC) SCREENING MAMMOGRAM BILATERAL W SARAH Schedule Routine, Read Routine (OP Routine) 04/25/2024 7:35 AM TELEPHONIC NURSE Screening mammogram, encounter for HEPATITIS PANEL, ACUTE Routine 01/02/2019 9:48 AM CDT Abnormal laboratory test result from Last 3 Months or Most Recently Relevant to Health Maintenance Results * SCAN - LABS (07/13/2024) us Provider Scanning Edited Result - Final * eGFR (05/09/2024 7:47 AM TELEPHONIC NURSE) eGFR 76 >=60 mL/min/1. 73 m2 Comment: [...] was last reviewed 2021. Testing performed by: [facility] [place] [address] Blood 05/09/2024 7:47 AM TELEPHONIC NURSE 05/09/2024 8:01 AM TELEPHONIC NURSE us Rip Evans MD LAB BLOOD ORDERABLES Fin al Result [facility] [address] Department [place] [address] * Differential, auto (05/09/2024 7:47 AM TELEPHONIC NURSE) Neutrophil abs 2.1 1.5 - 6.5 K/cumm Comment:Testing performed by : [facility] [place] [address] Imm gran abs 0.0 0.0 - 0.1 K/cumm CERNER Comment:Testing performed by : [facility] [place] [address] Lymphocyte abs 2.1 0.8 - 3.3 K/cumm CERNER Comment:Testing performed by : [facility] [place] [address] Monocyte abs 0.5 0.2 - 0.8 K/cumm CERNER Comment:Testing performed by : [facility] [place] [address] Eosinophil abs 0.1 0.0 - 0.5 K/cumm CERNER Comment:Testing performed by : [facility] [place] [address] Basophil abs 0.0 0.0 - 0.1 K/cumm CERNER Comment:Testing performed by : [facility] [place] [address] Neutrophil pct 44.0 % CERNER Comment: Interpretive Data Percent cell count reference ranges are not reported, since discordance with absolute values may lead to misinterpretation of CBC data. Current Interpretive Data was last revised on 2017. Testing performed by: [facility] [place] [address] Imm gran pct 0.2 % CERNER CH Comment: Interpretive Data Percent cell count reference ranges are not reported, since discordance with absolute values may lead to misinterpretation of CBC data. Current Interpretive Data was last revised on 2017. Testing performed by: [facility] [place] [address] Lymphocyte pct 43.3 % CERGALLITO Comment: Interpretive Data Percent cell count reference ranges are not reported, since discordance with absolute values may lead to misinterpretation of CBC data. Current Interpretive Data was last revised on 2017. Testing performed by: [facility] [place] [address] Monocyte pct 10.7 % [facility] Comment: Interpretive Data Percent cell count reference ranges are not reported, since discordance with absolute values may lead to misinterpretation of CBC data. Current Interpretive Data was last revised on 2017. Testing performed by: [facility] [place] [address] Eosinophil pct 1.0 % ROBI Comment: Interpretive Data Percent cell count reference ranges are not reported, since discordance with absolute values may lead to misinterpretation of CBC data. Current Interpretive Data was last revised on 2017. Testing performed by: [facility] [place] [address] Basophil pct 0.8 % [facility] Comment: Interpretive Data Percent cell count reference ranges are not reported, since discordance with absolute values may lead to misinterpretation of CBC data. Current Interpretive Data was last revised on 2017. Testing performed by: [facility] [place] [address] Blood 05/09/2024 7:47 AM TELEPHONIC NURSE 05/09/2024 8:01 AM TELEPHONIC NURSE us Rip Evans MD LAB BLOOD ORDERABLES Fin al Result [facility] [address] [address] Department [place] [address] * (ABNORMAL) CBC with auto differential (05/09/2024 7:47 AM TELEPHONIC NURSE) WBC 4.8 3.8 - 9.9 K/cumm Comment:Testing performed by : [facility] [place] [address] Hgb 13.4 11.9 - 15.5 g/dL CERNER CH Comment:Testing performed by : [facility] [place] [address] Hct 40.9 35.6 - 45.5 % CERNER CH Comment:Testing performed by : [facility] [place] [address] Plt 99(L) 150 - 400 K/cumm CERNER CH Comment:Testing performed by : [facility] [place] [address] MPV 12.5(H) 9.1 - 12.3 fL CERNER CH Comment:Testing performed by : [facility] [place] [address] RBC 4.58 3.90 - 5.20 M/cumm CERNER CH Comment:Testing performed by : [facility] [place] [address] MCV 89.3 81.3 - 96.4 fL CERNER CH Comment:Testing performed by : [facility] [place] [address] MCH 29.3 27.1 - 33.3 pg CERNER CH Comment:Testing performed by : [facility] [place] [address] MCHC 32.8 32.3 - 35.7 g/dL CERNER CH Comment:Testing performed by : [facility] [place] [address] RDW CV 13.0 11.1 - 14.9 % CERNER CH Comment:Testing performed by : [facility] [place] [address] RDW SD 42.7 35.7 - 48.1 fL CERNER CH Comment:Testing performed by : [facility] [place] [address] NRBC abs 0.00 0.00 - 0.01 K/cumm CERNER CH Comment:Testing performed by : [facility] [place] [address] Blood 05/09/2024 7:47 AM TELEPHONIC NURSE 05/09/2024 8:01 AM TELEPHONIC NURSE us Rip Evans MD LAB BLOOD ORDERABLES Fin al Result [facility] [address] Department [place] [address] * Comprehensive metabolic panel (05/09/2024 7:47 AM TELEPHONIC NURSE) Sodium 140 135 - 145 mmol/L Comment:Testing performed by : [facility] [place] [address] Potassium, pl 4.5 3.3 - 4.9 mmol/L CERNER Comment:Testing performed by : [facility] [place] [address] Chloride 103 97 - 110 mmol/L CERNER CH Comment:Testing performed by : [facility] [place] [address] CO2 27 22 - 32 mmol/L CERNER CH Comment:Testing performed by : [facility] [place] [address] Anion gap 10 2 - 15 mmol/L CERNER Comment:Testing performed by : [facility] [place] [address] BUN 12 6 - 25 mg/dL CERNER CH Comment:Testing performed by : [facility] [place] [address] Creatinine 0.87 0.60 - 1.10 mg/dL CERNER Comment:Testing performed by : [facility] [place] [address] Glucose 110 70 - 199 mg/dL [facility] Comment: Interpretive Data Fasting glucose >/= 126 [...] was last revised 2022. Testing performed by: [facility] [place] [address] Calcium 9.4 8.5 - 10.3 mg/dL CERNER CH Comment:Testing performed by : [facility] [place] [address] Bilirubin, total 0.3 0.1 - 1.2 mg/dL CERNER CH Comment:Testing performed by : [facility] [place] [address] Protein, pl 7.4 6.5 - 8.5 g/dL CERNER CH Comment:Testing performed by : [facility] [place] [address] Albumin 4.1 3.5 - 5.0 g/dL CERNER CH Comment:Testing performed by : [facility] [place] [address] Alk phos 79 40 - 130 Units/L CERNER CH Comment:Testing performed by : [facility] [place] [address] ALT 21 7 - 45 Units/L CERNER CH Comment:Testing performed by : [facility] [place] [address] AST 24 10 - 45 Units/L CERNER CH Comment:Testing performed by : [facility] [place] [address] Blood 05/09/2024 7:47 AM TELEPHONIC NURSE 05/09/2024 8:01 AM TELEPHONIC NURSE us Rip Evans MD LAB BLOOD ORDERABLES Fin al Result Performing Organization Address City/State/[facility] Co de Phone Number [facility] [address] [address] Department [place] [address] * Screening Mammogram Bilateral W Sarah (04/25/2024 7:35 AM TELEPHONIC NURSE) Anatomical Region Laterality Modality Breast Bilateral Mammography Narrative 04/25/2024 3:32 PM TELEPHONIC NURSE Mammogram Technique: Bilateral Digital Breast Tomosynthesis, Bilateral C-view 2D Screening mammogram. Views obtained: bilateral craniocaudal and bilateral mediolateral oblique. Computer Aided Detection was performed. Mammogram Findings: The present examination has been compared to prior imaging studies performed at [facility] on 04/23/2023 and 06/17/2023, and at [place], [place] on 03/02/2022. The breasts are almost [...] compared to prior imaging studies performed at [facility] on 04/23/2023 and 06/17/2023, and at [place], [place] on 03/02/2022. The breasts are almost [...] - GENERAL OR DERABLES Final Result [facility] [address] [address] Department [place] [address] from Last 3 Months or Most Recently Relevant to Health Maintenance Insurance [facility] [id number] Care Teams Asphalt Screed Operator Relationship Specialty Start Date End Date Ernie Zhang MD PCP - General Internal Medicine 09/21/18 Grace Mccabe MD [address] [place] [address] Referring Physician Gynecology 09/21/18 Rip Evans MD [address] [place] [address] Consulting Physician Internal Medicine 04/26/23
--- OUTSIDE RECORDS SUMMARY | 2024-07-26 17:28 | XMS_ITS | Referral Summary ---
Author Organization [facility] Address [address] [place] [address] Care Team Providers Care Asbestos Pipe Supervisor Name Role Phone Ernie Zhang MD Primary Care Provider [phone] Lloyd Mendez MD Unavailable [phone] Source Comments [facility],non-owned Affiliates and Associated Physician Practices is amultiple site organization consisting of ambulatory clinics and hospital sitesin [place], [place], [place] and [place]. This disclosure is being madepursuant to the Care Everywhere program and may not contain all information available regarding this patient. Last updated 18.[facility] Allergies No known active allergies [...] 1 tablet by mouth once daily Active [place]-3 Fatty Acids (fish oil) 1000 MG capsule [...] 12/31/2023 1:48 PM CDT Plan of Treatment Not on file Procedures Procedure Name Priority Date/Time Associated Diagnosis Comments BASIC METABOLIC PANEL (CALCIUM TOTAL) Routine 11/23/2023 2:03 PM CDT Thyroid nodule from Last 3 Months or Most Recently Relevant to Health Maintenance Results * (ABNORMAL) BASIC METABOLIC PANEL (CALCIUM TOTAL) (11/23/2023 2:03 PM CDT) BUN 17 7 - 26 mg/dL 11/23/2023 3:13 PM [facility] Creatinine 0.96 0.56 - 0.96 mg/dL 11/23/2023 3:13 PM [facility] Sodium 137 136 - 145 mmol/L 11/23/2023 3:13 PM [facility] Potassium 4.0 3.5 - 4.5 mmol/L 11/23/2023 3:13 PM [facility] Chloride 100 98 - 107 mmol/L 11/23/2023 3:13 PM [facility] CO2 30(H) 22 - 29 mmol/L 11/23/2023 3:13 PM [facility] Glucose 82 70 - 115 mg/dL 11/23/2023 3:13 PM [facility] Calcium 10.0 8.4 - 10.2 mg/dL 11/23/2023 3:13 PM [facility] Anion Gap 7 6 - 16 11/23/2023 3:13 PM [facility] BUN/Creatinine Ratio 18 7 - 23 11/23/2023 3:13 PM [facility] Osmolality Calculated 285 275 - 295 mOsm/kg 11/23/2023 3:13 PM [facility] eGFR by CKD-EPI 68(L) >=90 mL/min/1.7 3 m2 11/23/2023 3:13 PM [facility] Blood BLOOD SPECIMEN / Unknown Lab Venipuncture / Unknown 11/23/2023 2:03 PM CDT 11/23/2023 2:43 PM CDT Malcolm Hampton MD LAB - CHEMISTRY [facility] [address] [place] [address], [facility] [phone] from Last 3 Months or Most Recently Relevant to Health Maintenance Advance Directives * Full Code (Latest Code Status on File) Date Activated Date Inactivated Comments 12/02/2023 12:24 PM 12/03/2023 11:25 AM Care Teams Asbestos Pipe Supervisor Relationship Specialty Start Date End Date Ernie Zhang MD [address] [place] [address] PCP - General Internal Medicine 11/23/23 Lloyd Mendez MD [address] [place] [address] Physician Internal Medicine 11/23/23
--- OUTSIDE RECORDS SUMMARY | 2024-07-26 17:28 | XMS_ITS | Encounter Summary ---
Author Organization [facility] Address [address] [place] [address] Phone Care Team Providers Care Airline Customer Service Agent Name Role Phone Ernie Zhang MD Primary Care Provider Grace Mccabe MD Unavailable [phone] Rip Evans MD Unavailable [phone] Encounter Details Date Type Department Care Team (Latest Contact Info) Description 07/13/2024 Orders Only [facility] Scanning, Provider Social History Tobacco Use Types Packs/Day Years Used Date Smoking Tobacco: Never Smokeless Tobacco: Never Alcohol Use Standard Drinks/Week Comments Yes 0 (1 standard drink = 0.6 oz pur e alcohol) Comments Unknown Sex and Gender Information Value Date Recorded Sex Assigned at Not on file Legal Sex Female 4:15 AM CELLULAR EQUIPMENT INSTALLER Gender Identity Not on file Sexual Orientation Not on file documented as of this encounter Plan of Treatment Not on file documented as of this encounter Procedures Procedure Name Priority Date/Time Associated Diagnosis Comments SCAN - LABS 07/13/2024 documented in this encounter Results * SCAN - LABS (07/13/2024) us Provider Scanning Edited Result - Final documented in this encounter Visit Diagnoses Not on filedocumented in this encounter Care Teams Airline Customer Service Agent Relationship Specialty Start Date End Date Ernie Zhang MD PCP - General Internal Medicine 09/21/18 Grace Mccabe MD [address] [place], [place] [id number] Referring Physician Gynecology 09/21/18 Rip Evans MD [address] [place], [place] [id number] Consulting Physician Internal Medicine 04/26/23 documented as of this encounter
[2024-07-26 18:50] LABS: Free T4 Free Thyroxine 0.74 ng/dL (0.78-2.19)
== END 2024-07-26 17:26 | disposition home or self-care (01) ==
LOC: ANHLAB 17:25
PROVIDERS: PCP Internal Medicine; Visit Provider Internal Medicine
DX: E04.2 Nontoxic multinodular goiter (principal)
CPT/HCPCS: 36415; 84439; 84443

== ENCOUNTER 2024-09-25 20:25 | Emergency (ER) | payer OTHER, SELFPAY ==
--- OUTSIDE RECORDS SUMMARY | 2024-09-25 20:28 | XMS_ITS | Clinical Summary ---
Author Organization [facility] Address [address] [place] [address] Care Team Providers Care Dry Kiln Worker Name Role Phone Ernie Zhang MD Primary Care Provider [phone] Grace Mccabe MD Unavailable [phone] Rip Evans MD Unavailable [phone] Allergies No known active allergies Medications citalopram [...] Orders Only [facility] Scanning, Provider from Last 3 Months Immunizations Immunization Administration Dates Next Due Influenza, Quadrivalent, Spl [...] on file Legal Sex Female 4:[address] OPERATOR HOT MIX Gender Identity Not on file Sexual Orientation Not on file Obstetrics History Last Filed Vital Signs Vital Sign Reading Time Taken Comments Blood Pressure 126/83 05/09/2024 8:[address] ROLLER OPERATOR HOT MIX Pulse 65 05/09/2024 8:[address] ROLLER OPERATOR HOT MIX Temperature 36.2 C (97.2 F) 05/09/2024 8:[address] ROLLER OPERATOR HOT MIX Respiratory Rate 18 05/09/2024 8:[address] ROLLER OPERATOR HOT MIX Oxygen Saturation 96% 05/09/2024 8:[address] ROLLER OPERATOR HOT MIX Inhaled Oxygen Concentration - - Weight 118.5 kg (261 lb 3.2 oz) 05/09/2024 8:[address] ROLLER OPERATOR HOT MIX Height 167.6 cm (5' 6 ) 05/13/2021 8:[address] ROLLER OPERATOR HOT MIX Body Mass Index 42.16 05/13/2021 8:[address] ROLLER OPERATOR HOT MIX Plan of Treatment Health Maintenance Due Date [...] Associated Diagnosis Comments SCAN - LABS 07/13/2024 SCREENING MAMMOGRAM BILATERAL W SARAH Schedule Routine, Read Routine (OP Routine) 04/25/2024 7:[address]LLER OPERATOR HOT MIX Screening mammogram, encounter for HEPATITIS PANEL, ACUTE Routine 01/02/2019 9:48 AM CDT Abnormal laboratory test result from Last 3 Months or Most Recently Relevant to Health Maintenance Results * SCAN - LABS (07/13/2024) us Provider Scanning Edited Result - Final * Screening Mammogram Bilateral W Sarah (04/25/2024 7:[address]LLER OPERATOR HOT MIX) Anatomical Region Laterality Modality Breast Bilateral Mammography Narrative 04/25/2024 3:[address] ROLLER OPERATOR HOT MIX Mammogram Technique: Bilateral Digital Breast Tomosynthesis, Bilateral C-view 2D Screening mammogram. Views obtained: bilateral craniocaudal and bilateral mediolateral oblique. Computer Aided Detection was performed. Mammogram Findings: The present examination has been compared to prior imaging studies performed at [facility] on 04/23/2023 and 06/17/2023, and at [place], [place] on 03/02/2022. The breasts are almost [...] compared to prior imaging studies performed at [facility] on 04/23/2023 and 06/17/2023, and at [place], [place] on 03/02/2022. The breasts are almost entirely fatty. There is no suspicious abnormality in either breast. Impression: There is no mammographic evidence of malignancy. Annual screening mammography is recommended. OVERALL FINAL ASSESSMENT: BI-RADS CATEGORY 1: Negative. us Self Screening Mammogram IMG MAMMO PROCEDURES Fi [...] MICROBIOLOGY - GENERAL OR DERABLES Final Result Performing Organization Address [facility]/State/ZIP Co de Phone Number [facility] [address] [address] Department of Laboratories [place] [phone] from Last 3 Months or Most Recently Relevant to Health Maintenance Insurance [employer] [facility] [address] [place] [address] [facility] [id number] Care Teams Dry Kiln Worker Relationship Specialty Start Date End Date Ernie Zhang MD PCP - General Internal Medicine 09/21/18 Grace Mccabe MD [address] [place] [address] Referring Physician Gynecology 09/21/18 Rip Evans MD [address] [place], [place] [phone] Consulting Physician Internal Medicine 04/26/23
--- OUTSIDE RECORDS SUMMARY | 2024-09-25 20:28 | XMS_ITS | Clinical Summary ---
Author Organization [facility] Address [address] [place] [address] Care Team Providers Care Instructor Tap Dancing Name Role Phone Ernie Zhang MD Primary Care Provider [phone] Lloyd Mendez MD Unavailable [phone] Source Comments [facility],non-owned Affiliates and Associated Physician Practices is amultiple site organization consisting of ambulatory clinics and hospital sitesin [place], [place], [place] and [place]. This disclosure is being madepursuant to the Care Everywhere program and may not contain all information available regarding this patient. Last updated 18.[facility] Allergies No known active allergies Medications * [...] 1 tablet by mouth once daily Active [place]-3 Fatty Acids (fish oil) 1000 MG capsule [...] to complete this topic MENINGOCOCCAL (Group B) VACC INE SHARED DECISION-MAKING Aged Out No longer eligibl e based on patient's age to complete this topic MENINGOCOCCAL GROUPS A/C/Y/W VACCINE Aged Out No longer eligible b ased on patient's age to complete this topic Procedures Procedure Name Priority Date/Time Associated Diagnosis Comments BASIC METABOLIC PANEL (CALCIUM TOTAL) Routine 11/23/2023 2:03 PM CDT Thyroid nodule from Last 3 Months or Most Recently Relevant to Health Maintenance Results * (ABNORMAL) BASIC METABOLIC PANEL (CALCIUM TOTAL) (11/23/2023 2:03 PM CDT) BUN 17 7 - 26 mg/dL 11/23/2023 3:13 PM [facility] Creatinine 0.96 0.56 - 0.96 mg/dL 11/23/2023 3:13 PM [facility] Sodium 137 136 - 145 mmol/L 11/23/2023 3:13 PM [facility] Potassium 4.0 3.5 - 4.5 mmol/L 11/23/2023 3:13 PM [facility] Chloride 100 98 - 107 mmol/L 11/23/2023 3:13 PM [facility] CO2 30(H) 22 - 29 mmol/L 11/23/2023 3:13 PM [facility] Glucose 82 70 - 115 mg/dL 11/23/2023 3:13 PM [facility] Calcium 10.0 8.4 - 10.2 mg/dL 11/23/2023 3:13 PM [facility] Anion Gap 7 6 - 16 11/23/2023 3:13 PM [facility] BUN/Creatinine Ratio 18 7 - 23 11/23/2023 3:13 PM [facility] Osmolality Calculated 285 275 - 295 mOsm/kg 11/23/2023 3:13 PM [facility] eGFR by CKD-EPI 68(L) >=90 mL/min/1.7 3 m2 11/23/2023 3:13 PM [facility] Blood BLOOD SPECIMEN / Unknown Lab Venipuncture / Unknown 11/23/2023 2:03 PM CDT 11/23/2023 2:43 PM CDT Malcolm Hampton MD LAB - CHEMISTRY [facility] Organization Address City/State/ZIP Co de Phone Number [facility] [address] [place] [address], [facility] [phone] from Last 3 Months or Most Recently Relevant to Health Maintenance Advance Directives * Full Code (Latest Code Status on File) Date Activated Date Inactivated Comments 12/02/2023 12:24 PM 12/03/2023 11:25 AM Care Teams Instructor Tap Dancing Relationship Specialty Start Date End Date Ernie Zhang MD [address] [place] [id number] PCP - General Internal Medicine 11/23/23 Lloyd Mendez MD [address] [place] [address] Physician Internal Medicine 11/23/23
--- OUTSIDE RECORDS SUMMARY | 2024-09-25 20:28 | XMS_ITS | Referral Summary ---
Author Organization [facility] Address [address] [place] [address] Care Team Providers Care Line Cleaner Name Role Phone Ernie Zhang MD Primary Care Provider Grace Mccabe MD Unavailable Rip Evans MD Unavailable [phone] Encounters Date Type Department Care Team Description 07/13/2024 Orders Only [facility] Scanning, Provider from Last 3 Months Allergies No known [...] lower extremity 02/2023 Thrombocytopenia, unspecified 01/09/2019 Immunizations Immunization Administration Dates Next Due Influenza, [...] on file Legal Sex Female 4:15 AM KEYBOARD OPERATOR Gender Identity Not on file Sexual Orientation Not on file Last Filed Vital Signs Vital Sign Reading Time Taken Comments Blood Pressure 126/83 05/09/2024 8:04 AM KEYBOARD OPERATOR Pulse 65 05/09/2024 8:04 AM KEYBOARD OPERATOR Temperature 36.2 C (97.2 F) 05/09/2024 8:04 AM KEYBOARD OPERATOR Respiratory Rate 18 05/09/2024 8:04 AM KEYBOARD OPERATOR Oxygen Saturation 96% 05/09/2024 8:04 AM KEYBOARD OPERATOR Inhaled Oxygen Concentration - - Weight 118.5 kg (261 lb 3.2 oz) 05/09/2024 8:01 AM KEYBOARD OPERATOR Height 167.6 cm (5' 6 ) 05/13/2021 8:37 AM KEYBOARD OPERATOR Body Mass Index 42.16 05/13/2021 8:37 AM KEYBOARD OPERATOR Plan of Treatment Not on file Procedures Procedure Name Priority Date/Time Associated Diagnosis Comments SCAN - LABS 07/13/2024 SCREENING MAMMOGRAM BILATERAL W SARAH Schedule Routine, Read Routine (OP Routine) 04/25/2024 7:35 AM KEYBOARD OPERATOR Screening mammogram, encounter for HEPATITIS PANEL, ACUTE Routine 01/02/2019 9:48 AM CDT Abnormal laboratory test result from Last 3 Months or Most Recently Relevant to Health Maintenance Results * SCAN - LABS (07/13/2024) us Provider Scanning Edited Result - Final * Screening Mammogram Bilateral W Sarah (04/25/2024 7:35 AM KEYBOARD OPERATOR) Anatomical Region Laterality Modality Breast Bilateral Mammography Narrative 04/25/2024 3:32 PM KEYBOARD OPERATOR Mammogram Technique: Bilateral Digital Breast Tomosynthesis, Bilateral C-view 2D Screening mammogram. Views obtained: bilateral craniocaudal and bilateral mediolateral oblique. Computer Aided Detection was performed. Mammogram Findings: The present examination has been compared to prior imaging studies performed at [facility] on 04/23/2023 and 06/17/2023, and at [place], [place] on 03/02/2022. The breasts are almost [...] compared to prior imaging studies performed at [facility] on 04/23/2023 and 06/17/2023, and at [place], [place] on 03/02/2022. The breasts are almost [...] OR DERABLES Final Result Performing Organization Address City/State/[facility] Phone Number ROBI [phone] [facility] Department [place] [address] from Last 3 Months or Most Recently Relevant to Health Maintenance Insurance [facility] [place] [address] [facility] [id number] Care Teams Line Cleaner Relationship Specialty Start Date End Date Ernie Zhang MD PCP - General Internal Medicine 09/21/18 Grace Mccabe MD [address] [place] [address] Referring Physician Gynecology 09/21/18 Rip Evans MD [address] [place] [address] Consulting Physician Internal Medicine 04/26/23
--- OUTSIDE RECORDS SUMMARY | 2024-09-25 20:28 | XMS_ITS | Encounter Summary ---
Author Organization [facility] Address [address] [place] [address] Care Team Providers Care Commercial Account Executive Name Role Phone Ernie Zhang MD Primary Care Provider Grace Mccabe MD Unavailable [phone] Reason for Visit * Diagnostic Imaging (Routine) - Closed Specialty Diagnoses / Procedures Referred By [facility] Referred To Contact Procedures Breast Imaging Screening Outside Reference Transcribed Order, Provider Referral ID Status Reason Start Date Expiration Date Visits Re quested Visits Authorized [id number] Closed 05/12/2023 06/10/2024 1 1 Encounter Details Date Type Department Care Team ([facility] st Contact Info) Description 09/23/2018 Hospital Encounter [facility] [address] [place] [id number] Social History Tobacco Use Types Packs/Day Years Used Date Smoking Tobacco: Never Smokeless Tobacco: Never Alcohol Use Standard Drinks/Week Comments Yes 0 (1 standard drink = 0.6 oz pur e alcohol) Comments Unknown Sex and Gender Information Value Date Recorded Sex Assigned at Not on file Legal Sex Female 4:15 AM EMPLOYMENT ASSISTANT Gender Identity Not on file Sexual Orientation [...] CDT) Impressions [facility] - 05/12/2023 2:40 PM EMPLOYMENT ASSISTANT These images are for Reference purposes only and have not been reviewed by [facility]. There will be no report generated by a [facility] Radiologist. Narrative [facility] - 05/12/2023 2:40 PM EMPLOYMENT ASSISTANT EXAMINATION: Images For Reference Purposes Only us Provider Transcribed Order IMG MAMMO PROCEDURES Final Result [facility] documented in this encounter Visit Diagnoses Not on filedocumented in this encounter Care Teams Commercial Account Executive Relationship Specialty Start Date End Date Ernie Zhang MD PCP - General Internal Medicine 09/21/18 Grace Mccabe MD [address] [address] Referring Physician Gynecology 09/21/18 documented as of this encounter
--- OUTSIDE RECORDS SUMMARY | 2024-09-25 20:28 | XMS_ITS | Data Portability ---
Author Organization [facility] [employer], Main Office Address [address] [place] [address] Care Team Providers Care Motor Vehicle Parts Interpreter Name Role Phone TETE ZHANG Primary Care Provider [phone] TETE ZHANG Referring Provider DAVID EDMOND Slip Tender Assessment Encounter Date Assessment Date Assessment LastModified by Organization Details LastModified Time 07/13/2024 07/13/2024 This note is dictated and transcribed by [employer]. Licensed Clinical Psychologist variances may occur. Despite proofreading, typographical errors may occur. Occasional wrong-word or '[id number]' substitutions may have occurred due to the inherent limitations of voice recording. Read the chart carefully and recognize, using context, where substitutions have occurred. [email or web address] Not available 07/13/2024 10:47:44 08/17/2024 08/17/2024 This note is dictated and transcribed by [employer]. Licensed Clinical Psychologist variances may occur. Despite proofreading, typographical errors may occur. Occasional wrong-word or '[id number]' substitutions may have occurred due to the inherent limitations of voice recording. Read the chart carefully and recognize, using context, where substitutions have occurred. Not available 08/17/2024 10:56:28 Plan of Treatment Reminders Order Date Submit Date Provider Last Modified By Organization Details Last Modified Time Details Appointments Establish ed Patient 15 2024 10:45A Lia Edmond DPM Not available Not available Not available Any 15 2024 08:15A M Tete Zhang MD Not available Not available Not available Lab glycohemo globin, total, blood 2024 025 [facility] (Lab), [address] [place], [address], 07/14/2024 21:41:40 CBC 2024 025 [facility] (Lab), [address] [place], [address], 07/13/2024 18:48:08 lipid panel, serum 2024 025 [facility] (Lab), [address] [place], [address], 07/13/2024 18:53:58 CMP, serum or plasma 2024 025 [facility] (Lab), [address] [place], [address], 07/13/2024 18:54:03 glycohemo globin, total, blood [address] (Lab), [address] [place], [address], 04/05/2024 08:28:39 CBC [address] (Lab), [address] [place], [address], 04/05/2024 08:28:39 lipid panel, serum [address] (Lab), [address] [place], [address], 04/05/2024 08:28:38 CMP, serum or plasma [address] (Lab), [address] [place], [address], 04/05/2024 08:28:39 Referral physical therapist referral 2024 025 FLOYD Not available 07/17/2024 13:17:26 Procedures colonosco py screening (PROC) - Please call patient to schedule. Patient requestin g to see Dr. Monico Caban [address] [facility], [address], [address], [place], [address], 08/28/2024 08:52:41 colonosco py screening (PROC) 2023 024 [facility], [address], [address], [place], [address], 04/05/2024 08:29:13 colonosco py screening (PROC) 2023 024 nilda Velazquez MD, [address], [facility] [address], [place], [address], 11/18/2023 08:02:36 Surgeries None recorded. Imaging XR, knee, 3 view [address] [facility], [address], [place], [address], 03/14/2024 18:16:23 bone density [address], [address], [place], [address], 04/11/2024 08:27:58 Medication Orders simvastat in 20 mg tablet 2024 025 [id number], [address] [facility], [place], [place], [id number], 07/13/2024 09:38:40 Patient TargetsNo targets recorded. Patient Instructions Encounter Date Encounter Id Patient Instructions Last Modified By Organization Details Last Modified Time 11/10/2023 [id number] risk assessment* [email or web address] Not availabl e 11/10/2023 15:45:24 INFLUENZA VACCIN [...] SCREENING Not indicated GLUCOSE SCREENING LIPID SCREENING [email or web address] Not available 11/10/2023 15:33:53 07/13/2024 [id number] achilles tendonitis education Not available 07/13/2024 10:49:35 achilles tendon: exercises Not available 07/13/2024 10:49:35 Reason for Referral Physical Therapist Referral for Left Achilles tendinitis Referring Physician: David Edmond, Podiatric Surgery, Encounter Date: 07/13/2024 Results Created Date Observation Date Name Description Value Unit Range Abnormal Flag Note LastModifiedBy Organization Detail LastModifiedTime 07/13/1907/13/2024 CBC W/O DIFFE RENTI AL white blood cells 4.7 x10'3 /uL 4.2-10 .8 Not Available [facility] (Lab) [address] [place], [address], 07/13/2024 19:11:10 07/13/19 25 07/13/2024 CBC W/O DIFFE RENTI AL red blood cells 4.64 x10'6 /uL 3.80-5 .20 Not Available [facility] (Lab) [address] [place], [address], 07/13/2024 19:11:10 07/13/19 25 07/13/2024 CBC W/O DIFFE RENTI AL hemoglobin 13.6 g/dL 12.0-1 5.6 Not Available [facility] (Lab) [address] [place], [address], 07/13/2024 19:11:10 07/13/19 25 07/13/2024 CBC W/O DIFFE RENTI AL hematocrit 42.0 % 35.7-4 5.7 Not Available [facility] (Lab) [address] [place], [address], 07/13/2024 19:11:10 07/13/19 25 07/13/2024 CBC W/O DIFFE RENTI AL mean red cell volume 90.5 fL 82.0-9 9.0 Not Available [facility] (Lab) [address] [place], [address], 07/13/2024 19:11:10 07/13/19 25 07/13/2024 CBC W/O DIFFE RENTI AL mean red cell hemoglobin 29.3 pg 27.0-3 3.0 Not Available [facility] (Lab) [address] [place], [address], 07/13/2024 19:11:10 07/13/19 25 07/13/2024 CBC W/O DIFFE RENTI AL mean RBC HGB concentratio n 32.4 g/dL 31.0-3 6.0 Not Available [facility] (Lab) [address] [place], [address], 07/13/2024 19:11:10 07/13/19 25 07/13/2024 CBC W/O DIFFE RENTI AL red cell distribution width 13.4 % 11.8-1 5.5 Not Available [facility] (Lab) [address] [place], [address], 07/13/2024 19:11:10 07/13/19 25 07/13/2024 CBC W/O DIFFE RENTI AL platelets 88 x10'3 /uL 150-40 0 low Not Available [facility] (Lab) [address] [place], [address], 07/13/2024 19:11:10 07/13/19 25 07/13/2024 CBC W/O DIFFE RENTI AL mean platelet volume 14.0 fL 9.0-12 .4 high Not Available [facility] (Lab) [address] [place], [address], 07/13/2024 19:11:10 07/13/19 25 07/13/2024 LIPID PANEL cholesterol 159 mg/dL 140-19 9 NIH LISA NSUS RECOM MENDA TION FOR MANDY STERO L: ADULT CHILD LOW RISK: <200 <170 BORDE RLINE : <200- 239 ----- HIGH RISK: >240 >200 Not Available [facility] (Lab) [address] [place], [address], 07/13/2024 18:53:58 07/13/19 25 07/13/2024 LIPID PANEL triglyceride s 82 mg/dL 0-150 NIH LISA NSUS REPOR T RECOM MENDA TION FOR TRIGL YCERI LUCRECIA: ADULT CHILD LOW RISK: <150 ----- BODER LINE: 150-1 99 ----- HIGH RISK: >200 ----- Not Available [facility] (Lab) [address] [place], [address], 07/13/2024 18:53:58 07/13/1907/13/2024 LIPID PANEL HDL cholesterol 55 mg/dL 40- Not Available [facility] (Lab) [address] [place], [address], 07/13/2024 18:53:58 07/13/19 25 07/13/2024 LIPID PANEL [...] WILL NOT BE REPOR DEBORA. Not Available [facility] (Lab) [address] [place], [address], 07/13/2024 18:53:58 07/13/19 25 07/13/2024 COMPR EHENS JOSIAH METAB OLIC PANEL sodium 138 mmol/ L 137-14 5 Not Available [facility] (Lab) [address] [place], [address], 07/13/2024 18:54:03 07/13/19 25 07/13/2024 COMPR EHENS JOSIAH METAB OLIC PANEL potassium 4.3 mmol/ L 3.5-5. 1 Not Available [facility] (Lab) [address] [place], [address], 07/13/2024 18:54:03 07/13/19 25 07/13/2024 COMPR EHENS JOSIAH METAB OLIC PANEL chloride 104 mmol/ L 98-107 Not Available [facility] (Lab) [address] [place], [address], 07/13/2024 18:54:03 07/13/19 25 07/13/2024 COMPR EHENS JOSIAH METAB OLIC PANEL carbon dioxide 29 mmol/ L 22-30 Not Available [facility] (Lab) [address] [place], [address], 07/13/2024 18:54:03 07/13/19 25 07/13/2024 COMPR EHENS JOSIAH METAB OLIC PANEL anion gap 9.3 mmol/ L 14-22 low Not Available [facility] (Lab) [address] [place], [address], 07/13/2024 18:54:03 07/13/19 25 07/13/2024 COMPR EHENS JOSIAH METAB OLIC PANEL glucose 114 mg/dL 70-99 high Not Available [facility] (Lab) [address] [facility] [place], [address], 07/13/2024 18:54:03 07/13/19 25 07/13/2024 COMPR EHENS JOSIAH METAB OLIC PANEL BUN 15 mg/dL 8-19 Not Available [facility] (Lab) [address] [place], [address], 07/13/2024 18:54:03 07/13/19 25 07/13/2024 COMPR EHENS JOSIAH METAB OLIC PANEL creatinine 0.93 mg/dL 0.66-1 .25 Not Available [facility] (Lab) [address] [place], [address], 07/13/2024 18:54:03 07/13/19 25 07/13/2024 COMPR EHENS JOSIAH METAB OLIC PANEL GFR >60 Refer ence Range : [place] ge GFR Healt hy Adult : >60 [...] calcu lator is avail able on the [facility] websi te: [email or web address] :[email or web address] shira/[email or web address] [email or web address] ional s/kdo qi/gf r_cal culat or Not Available [facility] (Lab) [address] [place], [address], 07/13/2024 18:54:03 07/13/19 25 07/13/2024 COMPR EHENS JOSIAH METAB OLIC PANEL alkaline phosphatase 89 U/L 38-126 Not Available [facility] (Lab) [address] [place], [address], 07/13/2024 18:54:03 07/13/19 25 07/13/2024 COMPR EHENS JOSIAH METAB OLIC PANEL alanine aminotransfe rase 24 U/L 0-35 Not Available [facility] (Lab) [address] [place], [address], 07/13/2024 18:54:03 07/13/19 25 07/13/2024 COMPR EHENS JOSIAH METAB OLIC PANEL aspartate aminotransfe rase 33 U/L 15-37 Not Available [facility] (Lab) [address] [place], [address], 07/13/2024 18:54:03 07/13/19 25 07/13/2024 COMPR EHENS JOSIAH METAB OLIC PANEL bilirubin, total 0.70 mg/dL 0.20-1 .30 Not Available [facility] (Lab) [address] [place], [address], 07/13/2024 18:54:03 07/13/19 25 07/13/2024 COMPR EHENS JOSIAH METAB OLIC PANEL calcium 9.3 mg/dL 8.4-10 .2 Not Available [facility] (Lab) [address] [place], [address], 07/13/2024 18:54:03 07/13/19 25 07/13/2024 COMPR EHENS JOSIAH METAB OLIC PANEL total protein 7.4 g/dL 6.3-8. 2 Not Available [facility] (Lab) [address] [place], [address], 07/13/2024 18:54:03 07/13/19 25 07/13/2024 COMPR EHENS JOSIAH METAB OLIC PANEL albumin 4.3 g/dL 3.4-5. 0 Not Available [facility] (Lab) [address] [place], [address], 07/13/2024 18:54:03 07/13/19 25 07/13/2024 COMPR EHENS JOSIAH METAB OLIC PANEL globulin 3.1 g/dL 2.6-4. 2 Not Available [facility] (Lab) [address] [place], [address], 07/13/2024 18:54:03 07/13/19 25 07/13/2024 COMPR EHENS JOSIAH METAB OLIC PANEL A/G ratio 1.4 ratio 1.0-2. 0 Not Available [facility] (Lab) [address] [place], [address], 07/13/2024 18:54:03 07/13/19 25 07/14/2024 HEMOG LOBIN A1C HA1C 5.9 % 4.0-6. 0 Diabe arcenio Scree france Crite brenda: <5.7% Consi stent with absen ce of diabe arcenio 5.7-6 .4% Consi stent with incre ased risk for diabe arcenio (pred iabet es) >OR=6 .5% Consi stent with diabe arcenio REFER ENCE: Diabe arcenio Care 2016, 39(Moraes ppl.1 ):s13 -s22 Not Available [facility] (Lab) [address] [place], [address], 07/14/2024 21:41:40 03/14/20 24 03/13/2024 XR, knee, 3 view No observ ation record ed. [email or web address] [facility] [address] [facility] [address] [facility], [place], [address], 04/10/2024 11:48:15 04/27/20 24 04/25/2024 MAMMO , scree france, digit al, bilat eral No observ ation record ed. [email or web address] Not Available 2023 08:57:20 07/13/19 25 03/29/2024 bone densi ty No observ ation record ed. [facility] [address] [facility] [address] [facility], [place], [address], 07/13/2024 18:42:37 07/14/19 25 03/29/2024 bone densi ty No observ ation record ed. [facility] [address] [facility] [address] [facility], [place], [address], 07/14/2024 10:52:33 Result Notes None recorded. Problems Name Problem SNOMED Code Status Onset Date Resolution Date Notes Provider Name and Address Organization Details Recorded Time COVID-19 965223367 Active 2022 HENRIQUE Galarza, [employer] 3 11:14:17 Left Achilles tendiniti s 42546618550 9102 Active 2022 Tete Zhang MD [address], [facility] [address], [place], [address] , [employer] [facility] [employer] 3 10:22:28 Pain in left foot 35263826022 9107 Active 2022 David Edmond DPM [address], [address], [place], [address] , [employer] [facility] [employer] 3 11:14:03 Porokerat osis 276497476 Active 2022 David Edmond DPM [address], [place], [address] , [employer] [facility] [employer] 3 11:15:20 Bone spur of left foot 11445486143 9108 Active 2022 David Edmond DPM [address], [address], [place], [address] , [facility] [employer] [facility] 3 12:14:35 Steatosis of liver 521771320 Active 2022 Tete Zhang MD [address], [address], [place], [address] , [facility] [employer] [facility] 3 10:41:22 Mammograp hy abnormal 488185989 Active 2022 Tete Zhang MD [address], [address], [place], [address] , [facility] [employer] [facility] 3 10:42:47 Pain of right knee joint 09113416640 4100 Active 2023 Tete Zhang MD [address], [address], [place], [address] , [facility] [employer] [facility] 4 09:19:45 Anxiety state 183607971 Completed Not Available [facility] 3 04:53:38 Thyroid nodule 401152389 Active Not Available [facility] 3 04:53:38 Long-term drug therapy Completed 202104/15/2022 Not Available [facility] 3 04:53:38 Edema 980037283 Active 2020 Not Available [facility] 3 04:53:38 Adult health examinati on Active 2021 Not Available [facility] 3 04:53:38 Pain in left lower limb 806068643 Completed 202104/15/2022 Not Available [employer] 3 04:53:39 Foot swelling 763622312 Completed Not Available [employer] 3 04:53:39 Thrombocy topenic disorder 943038132 Active 2020 Not Available [employer] 3 04:53:39 Knee pain Completed Not Available [employer] 3 04:53:39 Genital herpes simplex 23058342 Active Not Available [facility] 3 04:53:39 Osteoarth ritis 184085902 Active Not Available [facility] 3 04:53:39 Insect bite reaction 209224778 Completed Not Available [facility] 3 04:53:39 Hypothyro idism 55157431 Active Not Available [facility] 3 04:53:39 Obesity 587264424 Active Not Available [facility] 3 04:53:39 Anxiety 23059173 Active Not Available [facility] 3 04:53:39 Hyperlipi demia 76537092 Active Not Available [facility] 3 04:53:40 Alopecia 09081873 Active Not Available [facility] 3 04:53:40 Red eye 248280620 Completed Not Available [facility] 3 04:53:40 Hyperglyc emia 78081888 Active 2021 Not Available [facility] 3 04:53:40 Administr ation of influenza vaccine Completed 202104/15/2022 Not Available [facility] 3 04:53:40 Problem Notes None recorded. Procedures Surgical History Date Name Laterality Status Provider Name and Address Organization Details Recorded Time 08/17/19 25 Callus Debridement, One completed David Edmond DPM [address], [address], [place], [address], [employer] 08/17/2024 10:54:26 06/01/20 23 Callus Debridement, One completed David Edmond DPM [address], [address], [place], [address], [employer] 06/02/2023 11:08:58 06/01/20 23 Plantar Fascia Injection Left Foot completed David Edmond DPM [address], [address], [place], [address], [employer] 06/02/2023 11:10:08 05/06/20 23 Callus Debridement, One completed David Edmond DPM [address], [address], [place], [address], [employer] [facility] [employer] [facility] 05/06/2023 12:26:02 04/08/20 23 Callus Debridement, One completed David Edmond, [employer] [address], [place], [address], [facility] [employer] [facility] [employer] [facility] 04/08/2023 11:15:36 09/07/19 15 Most Recent Bone Density completed Not Available [facility] 08/19/2022 04:43:51 03/20/20 14 Date of Last Colonoscopy completed Not Available [facility] 08/19/2022 04:43:51 Meniscal trnspl knee w/scpe completed Clary Finley [place] [employer] [facility] [employer] [facility] 04/08/2023 11:30:17 Imaging Results Imaging Date Name Status LastModified by Organiz ation Details LastModified Time 03/13/2024 XR, knee, 3 view completed [email or web address] [place] [address] [place] [address], [address], 04/10/2024 11:48:15 04/25/2024 MAMMO, screening, digital, bilateral completed [facility] Information not available 05/01/2024 08:57:20 03/29/2024 bone density completed [address], [address], 07/13/2024 18:42:37 03/29/2024 bone density completed [address], [address], 07/14/2024 10:52:33 Procedure Notes None recorded. Medical [...] TAKE 1 TABLET BY MOUTH EVERY DAY 2024 active Not Available Not Available Not Avai lable azithromyc in 250 mg tablet Take 2 [...] Available Not Available Not Available levothyrox ine 25 mcg tablet TAKE 1 TABLET BY MOUTH DAILY active Not Available Not Available No t Available citalopram 20 mg tablet active Not [...] APPLY TO SCALP 3 TIMES A WEEK active Not Available Not Available No t Available naproxen 500 mg tablet TAKE 1 [...] Updated DateTime 4 168.91 cm 42.5 kg/m2 335258. 88 g 97 [degF] 71 /min 98 % 98 % 130 mm[Hg] 80 mm[Hg] MCKENZIE Posey - [place] [facility] 4 15:22:10 Date Recorded Body height Body mass index (BMI) Body weight Body temperature Heart rate Oxygen saturation Oxygen saturation in Arterial blood by Pulse oximetry Systolic blood pressure Diastolic blood pressure Provider Name and Address Organization Details Last Updated DateTime 4 168.91 cm 41.2 kg/m2 590772. 42 g 97.8 [degF] 86 /min 96 % 96 % 128 mm[Hg] 84 mm[Hg] Anna rodarte MCKENZIE [employer] [facility] 4 09:05:13 Date Recorded Body weight Body mass index (BMI) Body height Body temperature Heart rate Oxygen saturation Oxygen saturation in Arterial blood by Pulse oximetry Systolic blood pressure Diastolic blood pressure Provider Name and Address Organization Details Last Updated DateTime 5 195128. 42 g 41.8 kg/m2 167.64 cm 97.5 [degF] 98 /min 95 % 95 % 134 mm[Hg] 70 mm[Hg] Anna rodarte Ariella [facility] [employer] [facility] 5 09:14:53 Date Recorded Body height Body mass index (BMI) Body weight Heart rate Respiratory rate Oxygen saturation Oxygen saturation in Arterial blood by Pulse oximetry Systolic blood pressure Diastolic blood pressure Provider Name and Address Organization Details Last Updated DateTime 5 167.64 cm 41.8 kg/m2 631336. 42 g 69 /min 14 /min 98 % 98 % 118 mm[Hg] 71 mm[Hg] Clary Finley [facility] [employer] [facility] 5 10:22:08 Date Recorded Body height Body mass index (BMI) Body weight Heart rate Respiratory rate Oxygen saturation Oxygen saturation in Arterial blood by Pulse oximetry Systolic blood pressure Diastolic blood pressure Provider Name and Address Organization Details Last Updated DateTime 5 167.64 cm 41.8 kg/m2 733060. 42 g 76 /min 14 /min 98 % 98 % 120 mm[Hg] 79 mm[Hg] Clary Finley [employer] [facility] [employer] [facility] 5 10:41:17 Social History Question Answer Notes LastModified by Organizat ion Details LastModified Time Tobacco Smoking Status Never Smoker Not Available [facility] 08/19/2022 04:34:11 Do You Have An Advance Directive? No [id number] Information not available 08/19/2022 What Is Your Level Of Alcohol Consumption? Occasional Information not available 04/08/2023 What Is Your Level Of Caffeine Consumption? Occasional [id number] Information not available 08/19/2022 How Much Tobacco Do You Chew? None [id number] Information not available 08/19/2022 What Type Of Diet Are You Following? REGULAR [id number] Information not available 08/19/2022 Which Illicit Or Recreational Drugs Have You Used? 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 No [id number] Information not available 08/19/2022 What Was The Date Of Your Most Recent Tobacco Screening? 04/08/2023 Information not available 04/08/2023 Have You Ever Been Counseled For Unhealthy Alcohol Use? No Information not available 04/08/2023 Do You Use Any Illicit Or Recreational Drugs? No Information not available 04/08/2023 Do You Use Sunscreen Routinely? No [id number] Information not available 08/19/2022 Has Tobacco Cessation Counseling Been Provided? No Information not available 04/08/2023 Do You Or Have You Ever Used Any Other Forms Of Tobacco Or Nicotine? No Information not available 04/08/2023 Sex: Female Functional Status Question Answer Note LastModified by Organizat ion Details LastModified Time What is your exercise level? Heavy [id number] Information not available 08/19/2022 Mental Status None recorded. Family History Relationship Description Onset Age of this Age Resolved Age Notes LastModified by Organization Details LastModified Time Father Diabetes mellitus [id number] Not available 08/19/2022 04:44:00 Mother Diabetes mellitus [id number] Not available 08/19/2022 04:44:00 Mother Heart disease [id number] Not available 08/19/2022 04:44:00 Unspecified Relation Family [...] (COVID-19) vaccine, UNSPECIFIED 1 completed Not Available [facility] 08/19/2022 05:04:04 SARS-COV-2 (COVID-19) vaccine, UNSPECIFIED 1 completed Not Available [facility] 08/19/2022 05:04:04 Influenza, split virus, quadrivalent, PF 2 completed Not Available [facility] 08/19/2022 05:04:05 Influenza, split virus, quadrivalent, PF 1 completed Not Available [facility] 08/19/2022 05:04:05 Past Encounters Encounter ID Performer Location Encounter Start Date Encounter Closed Date Diagnosis/Indication Diagnosis SNOMED-CT Code Diagnosis ICD10 Code Diagnosis Note [id number] [facility] [address] [place] [address] 10/21/2020 00:00:00 10/21/2020 12:21:43 [id number] [facility] [address] [address] 11/19/2020 00:00:00 11/19/2020 10:47:14 [id number] [facility] [address] [address] 03/24/2021 00:00:00 03/24/2021 10:39:11 [id number] [facility] [address] [address] 04/01/2021 00:00:00 04/01/2021 12:28:52 [id number] [facility] [id number] [place] [address] 07/29/2021 00:00:00 07/29/2021 09:36:55 [id number] [facility] [id number] [facility] [address] 08/28/2021 00:00:00 08/28/2021 16:44:05 [id number] [facility] [address] [place] [address] 11/27/2021 00:00:00 11/27/2021 15:39:15 [id number] [facility] [address] [place] [address] 04/16/2022 00:00:00 04/16/2022 17:27:17 [id number] Tete Zhang MD [facility] [address] [place] [address] 10/05/2022 09:41:28 10/05/2022 10:13:19 Hypothyroidism 65361584 E03.9 no meds needed Anxiety 16641530 F41.9 under good control with meds Obesity 965940764 E66.9 advised to lose weight, watch diet Alopecia 31410899 L65.9 spironolac tone helps Hyperlipidemia 56001158 E78.5 on meds, labs next time Edema 757809409 R60.9 improved Thrombocyt openic disorder 426768824 D69.6 stable and better Osteoarthritis 993567196 M19.90 [facility] Adult heal th examination 171338455 Z00.00 Colonoscop y- 04/17/2014 Mammogram- 02/09 at [facility]- 09/2018, 11/06/2021 by Poncho ax- NEVERFLU- OV ID- 09/03/20. 09/29/20 [id number] Tete Zhang MD [facility] [address] [address] 01/27/2023 09:46:30 01/27/2023 10:26:36 Hypothyroidism 23351290 E03.9 no meds, being watchd Anxiety 27414762 F41.9 under good control with meds Obesity 869336498 E66.9 advised to lose weight, watch diet Alopecia 49155104 L65.9 seeing derm Hyperlipidemia 99314617 E78.5 on meds, Edema 701570620 R60.9 improved Thrombocyt openic disorder 300699746 D69.6 stable and better Osteoarthritis 784202195 M19.90 otc Adult heal th examination 933255603 Z00.00 Colonoscop y- 04/17/2014 Mammogram- 02/09 at [facility]- 09/2018, 11/06/2021 by GYNPneumov ax- NEVERFLU- OV ID- 09/03/20. 09/29/20 Hyperglycemia 09066268 R 73.9 watching diet, nl A1c Left Achil les tendinitis 2593799124 73623 M76.62 naprosyn, exercises discussed [id number] David Edmond DPM [facility] [address], [address] [place] [address] 04/08/2023 10:47:56 04/09/2023 11:27:46 Pain in left foot 9210407915 16496 M79.672 recommend supportive shoe gear such as new balance dailyno strenuous activities follow-up in 1 month Left Achil les tendinitis 3373066507 78216 M76.62 continue naproxen per PCPrice therapystr etching exercises dispensedn o strenuous activities Recommend supportive shoe gear such as new balanceFol low-up in 1 month possible physical therapy at that time Porokeratosis 989022258 Q82.8 plantar right foot, sub 1st metatarsal headdebrid ed without incidentre commend Amlactin lotion 3 times daily over-the-c ounterReco mmend use of pumice stone dailyRecom mend supportive athletic shoe gear daily Bone spur of left foot 1162258209 33950 M25.775 left foot x-rays reviewed [id number] David Edmond DPM [facility] [address], [address] [place] [address] 05/06/2023 12:03:19 05/06/2023 12:29:14 Left Achilles tendinitis 9043376275 61787 M76.62 continue naproxen per PCPrice therapyRx physical therapystr etching exercises dispensedn o strenuous activities Recommend supportive shoe gear such as new balanceFol low-up in 1 month Porokeratosis 701284868 Q82.8 plantar right foot, sub 1st metatarsal headdebrid ed without incidentre commend Amlactin lotion 3 times daily over-the-c ounterReco mmend use of pumice stone dailyRecom mend supportive athletic shoe gear daily [id number] Tete Zhang MD [facility] [address] [place] [address] 05/26/2023 09:53:41 05/26/2023 10:47:30 Adult health examination 486353470 Z00.00 Z13.220 Colonoscop y- 04/17/2014 Mammogram- 2022 at [facility]- 09/2018, 11/06/2021 by GYNJarrett ax- NEVERFLU- 03/2022, 3COVID- 09/03/20. 09/29/20 Hypothyroidism 71344354 E03.9 no meds, being watched Anxiety 43832511 F41.9 under good control with meds Obesity 376906696 E66.9 advised to lose weight, watch diet Alopecia 71512799 L65.9 seeing derm Hyperlipidemia 52956249 E78.5 on meds, Edema 141235417 R60.9 improved Thrombocyt openic disorder 856364499 D69.6 seeing hematology and just had labs Osteoarthritis 600159937 M19.90 otc Hyperglycemia 34235495 R 73.9 watching diet, Left Achil les tendinitis 9790911987 13851 M76.62 naprosyn, getting PT Steatosis of liver 1007 K76.0 LOSE WEIGHT, WATCH DIET Long-term drug therapy 491223852 Z79.899 Mammography abnormal 168 915790 R92.8 getting compressio n views [id number] David Edmond DPM [facility] [place] [address], [address] [place] [address] 06/01/2023 17:43:08 06/02/2023 16:46:41 Left Achilles tendinitis 2472070226 45827 M76.62 Injection today-disc ontinue physical therapy for 2 weeksNo strenuous activities Continue easy stretching at [facility] physical therapy-ho ld for 2 weeksRecom mend supportive shoe gear such as new balanceFol low-up in 3-4 weeks Porokeratosis 021608213 Q82.8 plantar right foot, sub 1st metatarsal headdebrid ed without incidentre commend Amlactin lotion 3 times daily over-the-c ounterReco mmend use of pumice stone dailyRecom mend supportive athletic shoe gear dailyFollo w-up as needed [id number] David Edmond DPM [facility] [place] [address] [facility], [address] [place] [address] 06/29/2023 16:17:50 07/21/2023 07:16:57 Left Achilles tendinitis 6484177053 15956 M76.62 Continue easy stretching at [facility] physical therapy-ma y finishReco mmend supportive shoe gear such as new balanceFol low-up as needed [id number] Tete Zhang MD [facility] [address] [place] [address] 11/10/2023 15:17:13 11/10/2023 15:51:28 Adult health examination 561041557 Z00.00 Z13.220 Colonoscop y- 04/17/2014 Mammogram- 06/17/2023 at [facility]- 09/2018, 11/06/2021 by WATCH REPAIRER - DUEPneumov ax- NEVERFLU- 03/2022, 3COVID- 09/03/20. 09/29/20 Hypothyroidism 97465280 E03.9 no meds, being watched Anxiety 03381609 F41.9 under good control with meds Obesity 902393359 E66.9 advised to lose weight, watch diet, has gained weight Alopecia 00940594 L65.9 seeing derm Hyperlipidemia 48848745 E78.5 under control Edema 837304058 R60.9 improved Thrombocyt openic disorder 567535334 D69.6 seeing hematology and just had labs Osteoarthritis 043068224 M19.90 otc Hyperglycemia 63762846 R 73.9 watching diet, Steatosis of liver 1007 K76.0 advised to be on low fat diet Mammography abnormal 168 768275 R92.8 compressio n views nl Depression screening 171 751115 Z13.31 Thyroid nodule 605055470 E04.1 to get surgery Screening for malignant neoplasm of colon 991321425 Z12.11 Screening for osteoporosis 662386507 Z13.820 dexa due, gets from her gyne [id number] Tete Zhang MD [facility] [address] [place] [address] 03/13/2024 08:59:36 03/13/2024 09:31:11 Adult health examination 514795336 Z00.00 Z13.220 Colonoscop y- 04/17/2014 Mammogram- 06/17/2023 at [facility]- 09/2018, 11/06/2021 by WATCH REPAIRER - DUEPneumov ax- NEVERFLU- 03/2022, 3COVID- 09/03/20. 09/29/20 Hypothyroidism 00899881 E03.9 no meds, being watched, had labs at endo recently Anxiety 09977762 F41.9 under good control with meds Obesity 187110587 E66.9 advised to lose weight, watch diet, Alopecia 04270405 L65.9 seeing derm Hyperlipidemia 07426513 E78.5 under control Edema 102035433 R60.9 improved Thrombocyt openic disorder 640809632 D69.6 seeing hematology Osteoarthritis 760014089 M19.90 otc Hyperglycemia 38910946 R 73.9 watching diet, Steatosis of liver 1007 K76.0 advised to be on low fat diet Mammography abnormal 168 552880 R92.8 compressio n views nl Thyroid nodule 794042064 E04.1 s/p surgery Pain of ri ght knee joint 9683530240 48317 M25.561 Long-term drug therapy 686741767 Z79.899 had vit d checked at gyne Postmenopausal state 764 26670 Z78.0 Screening for malignant neoplasm of colon 602843857 Z12.11 [id number] Tete Zhang MD [facility] [address] [place] [address] 07/13/2024 09:07:54 07/13/2024 09:54:23 Adult health examination 410046733 Z00.00 Z13.220 Colonoscop y- 04/17/2014 - Ordered againMammo gram- 04/25/2024 Dexa- 04/13, nlPneumova x- NEVERFLU- 03/2022, 2022, OVID- 09/03/20. 09/29/20 Hypothyroidism 95506527 E03.9 no meds, being watched, [facility] Anxiety 17621470 F41.9 under good control with meds Obesity 357866549 E66.9 advised to lose weight, watch diet, Alopecia 27730808 L65.9 seeing derm Hyperlipidemia 67194891 E78.5 under control Edema 717445493 R60.9 improved Thrombocyt openic disorder 869141907 D69.6 seeing hematology Osteoarthritis 266563562 M19.90 otc Hyperglycemia 19182538 R 73.9 advised to watch diet and lose weight Steatosis of liver 73606 1007 K76.0 advised to be on low fat diet Thyroid nodule 328200963 E04.1 s/p surgery Pain of ri ght knee joint 3617396345 95116 M25.561 better Screening for malignant neoplasm of colon 522592069 Z12.11 [id number] David Edmond DPM [facility] Pod[facility] [place] [address] [place] [address] 07/13/2024 10:14:53 07/14/2024 13:41:32 Left Achilles tendinitis 1226092081 81386 M76.62 Continue easy stretching at [facility] physical therapy- AchillesRe commend supportive shoe gear such as new balanceFol low-up 4 weeks [id number] David Edmond DPM [facility] Podiatry [place] [address] [place] [address] 08/17/2024 10:35:06 08/18/2024 13:57:17 Left Achilles tendinitis 2831924410 71853 M76.62 Continue easy stretching at [facility] therapyRx physical therapy- AchillesRe commend supportive shoe gear such as new balanceFol low-up 4-5 weeks Porokeratosis 184112893 Q82.8 plantar right foot, sub 1st metatarsal headdebrid ed without incidentRe commend use of pumice stone dailyRecom mend salicylic acid over-the-c ounter twice daily until blister then discontinu e monitor for signs of infection present seek medical attention immediatel yRecommend supportive athletic shoe gear dailyFollo w-up 5 weeks Health Concerns Section Related Observation LastModified by Organization Detai ls LastModified Time None Recorded Concern Status LastModified by Organization Details LastModified Time None Recorded Advance Directives Directive N: Payers Encounter Date Sequence Insurance Name Policy Number Policy Garcia Covered Member ID Garcia Member ID Guarantor Name 11/10/2023 1 [facility] - [employer] - OPEN ACCESS [id number] Karishma Ariella Steven [id number] OI Karishma Ariella Steven 03/13/2024 1 [employer] - OPEN ACCESS [id number] Karishma Ariella Steven [id number] OI Karishma Krishnan Steven 07/13/2024 1 [employer] - OPEN ACCESS [id number] Karishma Ariella Steven [id number] OI Karishma Krishnan Steven 07/13/2024 1 [employer] - OPEN ACCESS [id number] Karishma A Steven [id number] OI Karishma Krishnan Steven 08/17/2024 1 [employer] - [employer] - OPEN ACCESS [id number] Karishma Krishnan Steven [id number] OI Karishma Krishnan Steven Notes Date Note Type Note Provider Name and Address Organization Details Recorded Time 11/10/2023 text/html Doing fine, compliant to medications, [...] nl Abn mammogram- getting compression views Tete Zhang MD [address], [place], [address], [employer] [facility] [employer] 11/10/2023 16:53:49 03/13/2024 text/html Doing fine, compliant [...] mammogram- compression views were nl 06/12 Tete Zhang MD [address], [address], [place], [address], [employer] [facility] [employer] 03/13/2024 09:25:45 07/13/2024 text/html Doing fine, compliant to medications, no side affects, here for follow up.PT IS FASTING ( [employer] ) Anxiety- Under control, on meds, no symptoms of depression or anxiety, sleep fine,Meds- Citalopram 40 mg dailyAlopecia-On meds,seen derm , had local shotsMeds- Spironolactone 150 mg dailyObesity- advised to watch diet,has not lostThyroid nodule- was being observed, now size has gone up and had biopsy, no report but was told was neg, seen endo Dr Nayana krishnan- mild elevation, watching diet, on meds, labsThrombocytopenia [...] right knee, had treatment and better Tete Zhang MD [address], [address], [place], [address], [employer] 07/13/2024 09:40:58 07/13/2024 text/html . Patient is [...] the return. David Edmond DPM [address], [place], [address], [employer] 07/13/2024 10:49:53 08/17/2024 text/html . Patient is a 59-year-old female she returns the office for follow-up on left Achilles tendinitis she has been in physical therapy for about 4 weeks she states that she is about 70% better she states she is still having some minor burning discomfort at the Achilles insertion when she is weight-bearing she denies any other complaints to the area. Patient states she continues to have the recurrent callus under her sub 1st metatarsal head of the right foot she states it is painful with weight-bearing. Patient asked if it could be cut down today due to the discomfort. Patient denies any acute signs of infection. Patient states that she seen Dermatology as well and they issued a pad for the area but she has not received it for treatment. Patient denies any other complaints. David Edmond, [place] [address] [facility], [facility] [address], [place], [address], [facility] [employer] 08/17/2024 10:57:25 OBGyn Episode No OBEpisode recorded.
[2024-09-25 20:47] VITALS: BP 157/88; PULSE 78; RESP 16; TEMP 36.5; O2SAT 99
--- OUTSIDE RECORDS SUMMARY | 2024-09-26 00:25 | XMS_ITS | Encounter Summary ---
Author Organization [facility] Healthcare Address [address] [place] [address] Care Team Providers Care Pot Reliner Name Role Phone Ernie Zhang MD Primary Care Provider Grace Mccabe MD Unavailable [phone] Reason for Visit * Diagnostic Imaging (Routine) - Closed Specialty Diagnoses / Procedures Referred By [facility] [place] Referred To Contact Procedures Breast Imaging Screening Outside Reference Transcribed Order, Provider Referral ID Status Reason Start Date Expiration Date Visits Re quested Visits Authorized [id number] Closed 05/12/2023 06/10/2024 1 1 Encounter Details Date Type Department Care Team ([facility] st Contact Info) Description 09/23/2018 Hospital Encounter [facility] [address] [place] [id number] Social History Tobacco Use Types Packs/Day Years Used Date Smoking Tobacco: Never Smokeless Tobacco: Never Alcohol Use Standard Drinks/Week Comments Yes 0 (1 standard drink = 0.6 oz pur e alcohol) Comments Unknown Sex and Gender Information Value Date Recorded Sex Assigned at Not on file Legal Sex Female 4:15 AM 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. There will be no report generated by a [facility] Radiologist. Narrative [facility] - 05/12/2023 2:40 PM MANUFACTURING CONTROLS ENGINEER EXAMINATION: Images For Reference Purposes Only us Provider Transcribed Order IMG MAMMO PROCEDURES Final Result [facility] documented in this encounter Visit Diagnoses Not on filedocumented in this encounter Care Teams Pot Reliner Relationship Specialty Start Date End Date Ernie Zhang MD PCP - General Internal Medicine 09/21/18 Grace Mccabe MD [address] [address] Referring Physician Gynecology 09/21/18 documented as of this encounter
--- OUTSIDE RECORDS SUMMARY | 2024-09-26 00:25 | XMS_ITS | Clinical Summary ---
Author Organization [facility] Address [address] [place] [address] Care Team Providers Care Document Management Technician Name Role Phone Ernie Zhang MD Primary Care Provider [phone] Lloyd Mendez MD Unavailable [phone] Source Comments [facility],non-owned Affiliates and Associated Physician Practices is amultiple site organization consisting of ambulatory clinics and hospital sitesin [place], [place], [place] and [place]. This disclosure is being madepursuant to the Care Everywhere program and may not contain all information available regarding this patient. Last updated 18.[facility] Allergies No known active allergies Medications [...] 1 tablet by mouth once daily Active [place]-3 Fatty Acids (fish oil) 1000 MG capsule [...] 7 - 26 mg/dL 11/23/2023 3:13 PM [facility] Creatinine 0.96 0.56 - 0.96 mg/dL 11/23/2023 3:13 PM [facility] Sodium 137 136 - 145 mmol/L 11/23/2023 3:13 PM [facility] Potassium 4.0 3.5 - 4.5 mmol/L 11/23/2023 3:13 PM [facility] Chloride 100 98 - 107 mmol/L 11/23/2023 3:13 PM [facility] CO2 30(H) 22 - 29 mmol/L 11/23/2023 3:13 PM [facility] Glucose 82 70 - 115 mg/dL 11/23/2023 3:13 PM [facility] Calcium 10.0 8.4 - 10.2 mg/dL 11/23/2023 3:13 PM [facility] Anion Gap 7 6 - 16 11/23/2023 3:13 PM [facility] BUN/Creatinine Ratio 18 7 - 23 11/23/2023 3:13 PM [facility] Osmolality Calculated 285 275 - 295 mOsm/kg 11/23/2023 3:13 PM [facility] eGFR by CKD-EPI 68(L) >=90 mL/min/1.7 3 m2 11/23/2023 3:13 PM [facility] Blood BLOOD SPECIMEN / Unknown Lab Venipuncture / Unknown 11/23/2023 2:03 PM CDT 11/23/2023 2:43 PM CDT Malcolm Hampton MD LAB - CHEMISTRY [facility] Organization Address City/State/ZIP Co de Phone Number [facility] [address] [place] [address], [facility] [phone] from Last 3 Months or Most Recently Relevant to Health Maintenance Advance Directives * Full Code (Latest Code Status on File) Date Activated Date Inactivated Comments 12/02/2023 12:24 PM 12/03/2023 11:25 AM Care Teams Document Management Technician Relationship Specialty Start Date End Date Ernie Zhang MD [address] [place] [id number] PCP - General Internal Medicine 11/23/23 Lloyd Mendez MD [address] [place] [address] Physician Internal Medicine 11/23/23
--- OUTSIDE RECORDS SUMMARY | 2024-09-26 00:25 | XMS_ITS | Referral Summary ---
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 [employer] Gender Identity Not on file Sexual Orientation Not on file Last Filed Vital Signs Vital Sign Reading Time Taken Comments Blood Pressure 126/83 05/09/2024 8:04 AM [employer]DRY [employer]ORER [employer] Pulse 65 05/09/2024 8:04 AM FOUNDRY [employer]ORER [employer] Temperature 36.2 C (97.2 F) 05/09/2024 8:04 AM FOUNDRY [employer]ORER [employer] Respiratory Rate 18 05/09/2024 8:04 AM FOUNDRY LABORER [employer] Oxygen Saturation 96% 05/09/2024 8:04 AM FOUNDRY LABORER [employer] Inhaled Oxygen Concentration - - Weight 118.5 kg (261 lb 3.2 oz) 05/09/2024 8:01 AM FOUNDRY LABORER [employer] Height 167.6 cm (5' 6 ) 05/13/2021 8:37 AM FOUNDRY LABORER [employer] Body Mass Index 42.16 05/13/2021 8:37 AM FOUNDRY LABORER [employer] Plan of Treatment Not on file Procedures Procedure Name Priority Date/Time Associated Diagnosis Comments SCAN - LABS 07/13/2024 SCREENING MAMMOGRAM BILATERAL W SARAH Schedule Routine, Read Routine (OP Routine) 04/25/2024 7:35 AM FOUNDRY LABORER [employer] Screening mammogram, encounter for HEPATITIS PANEL, ACUTE Routine 01/02/2019 9:48 AM CDT Abnormal laboratory test result from Last 3 Months or Most Recently Relevant to Health Maintenance Results * SCAN - LABS (07/13/2024) us Provider Scanning Edited Result - Final * Screening Mammogram Bilateral W Sarah (04/25/2024 7:35 AM FOUNDRY LABORER [employer]) Anatomical Region Laterality Modality Breast Bilateral Mammography Narrative 04/25/2024 3:32 PM FOUNDRY LABORER [employer] Mammogram Technique: Bilateral Digital Breast Tomosynthesis, Bilateral C-view 2D Screening mammogram. Views obtained: bilateral craniocaudal and bilateral mediolateral oblique. Computer Aided Detection was performed. Mammogram Findings: The present examination has been compared to prior imaging studies performed at [facility] on 04/23/2023 and 06/17/2023, and at [place], [place] on 03/02/2022. The breasts are almost [...] compared to prior imaging studies performed at [facility] on 04/23/2023 and 06/17/2023, and at [place], [place] on 03/02/2022. The breasts are almost [...] OR DERABLES Final Result Performing Organization Address City/State/[facility] Phone Number ROBI [phone] [facility] Department [place] [address] from Last 3 Months or Most Recently Relevant to Health Maintenance Insurance [facility] [place] [address] [facility] [id number] Care Teams Campaign Specialist Relationship Specialty Start Date End Date Ernie Zhang MD PCP - General Internal Medicine 09/21/18 Grace Mccabe MD [address] [place] [address] Referring Physician Gynecology 09/21/18 Rip Evans MD [address] [place] [address] Consulting Physician Internal Medicine 04/26/23
--- OUTSIDE RECORDS SUMMARY | 2024-09-26 00:25 | XMS_ITS | Clinical Summary ---
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 Gender Identity Not on file Sexual Orientation Not on file Obstetrics History Last Filed Vital Signs Vital Sign Reading Time Taken Comments Blood Pressure 126/83 05/09/2024 8:04 AM CORNCOB PIPE MANUFACTURING SUPERVISOR Pulse 65 05/09/2024 8:04 AM CORNCOB PIPE MANUFACTURING SUPERVISOR Temperature 36.2 C (97.2 F) 05/09/2024 8:04 AM CORNCOB PIPE MANUFACTURING SUPERVISOR Respiratory Rate 18 05/09/2024 8:04 AM CORNCOB PIPE MANUFACTURING SUPERVISOR Oxygen Saturation 96% 05/09/2024 8:04 AM CORNCOB PIPE MANUFACTURING SUPERVISOR Inhaled Oxygen Concentration - - Weight 118.5 kg (261 lb 3.2 oz) 05/09/2024 8:01 AM CORNCOB PIPE MANUFACTURING SUPERVISOR Height 167.6 cm (5' 6 ) 05/13/2021 8:37 AM CORNCOB PIPE MANUFACTURING SUPERVISOR Body Mass Index 42.16 05/13/2021 8:37 AM CORNCOB PIPE MANUFACTURING SUPERVISOR Plan of Treatment Health Maintenance Due Date [...] Read Routine (OP Routine) 04/25/2024 7:35 AM CORNCOB PIPE MANUFACTURING SUPERVISOR Screening mammogram, encounter for HEPATITIS PANEL, ACUTE Routine 01/02/2019 9:48 AM CDT Abnormal laboratory test result from Last 3 Months or Most Recently Relevant to Health Maintenance Results * SCAN - LABS (07/13/2024) us Provider Scanning Edited Result - Final * Screening Mammogram Bilateral W Sarah (04/25/2024 7:35 AM CORNCOB PIPE MANUFACTURING SUPERVISOR) Anatomical Region Laterality Modality Breast Bilateral Mammography Narrative 04/25/2024 3:32 PM CORNCOB PIPE MANUFACTURING SUPERVISOR Mammogram Technique: Bilateral Digital Breast Tomosynthesis, Bilateral C-view 2D Screening mammogram. Views obtained: bilateral craniocaudal and bilateral mediolateral oblique. Computer Aided Detection was performed. Mammogram Findings: The present examination has been compared to prior imaging studies performed at [facility] on 04/23/2023 and 06/17/2023, and at [place], [place] on 03/02/2022. The breasts are almost [...] compared to prior imaging studies performed at [facility] on 04/23/2023 and 06/17/2023, and at [place], [place] on 03/02/2022. The breasts are almost [...] OR DERABLES Final Result Performing Organization Address [facility]/State/ZIP Co de Phone Number ROBI [address] [address] Albrecht Department of Laboratories [place] [phone] from Last 3 Months or Most Recently Relevant to Health Maintenance Insurance [employer] [facility] [id number] [place] [address] [facility] [id number] Care Teams Public Address Servicer Relationship Specialty Start Date End Date Ernie Zhang MD PCP - General Internal Medicine 09/21/18 Grace Mccabe MD [address] [place] [address] Referring Physician Gynecology 09/21/18 Rip Evans MD [address] [place], [place] [id number] Consulting Physician Internal Medicine 04/26/23
--- NOTE | 2024-09-26 01:45 | PC.NURSE ---
Pt ambulated to desk and stated she was going to leave due to wait time. Pt encouraged to stay by this RN. Pt expressed dissatisfaction with care, this RN notified broker in charge and gave pt a patient advocate card. Pt ambulated out of the ED with a steady gait.
== END 2024-09-26 01:45 | disposition left against medical advice (07) ==
PROVIDERS: Emergency Provider Preventive Medicine Aerospace Medicine; PCP Internal Medicine
DX: L55.9 Sunburn, unspecified (principal)
CPT/HCPCS: 99199

== ENCOUNTER 2024-10-20 00:37 | Day surgery (SDC) | payer OTHER, SELFPAY ==
[2024-10-09 11:07] VITALS: BMI 42.0
--- OUTSIDE RECORDS SUMMARY | 2024-10-20 00:39 | XMS_ITS | Encounter Summary ---
Author Organization [facility] Address [address] [place] [address] Care Team Providers Care Direct Support Staff Member Name Role Phone Ernie Zhang MD Primary Care Provider Grace Mccabe MD Unavailable [phone] Reason for Visit * Diagnostic Imaging (Routine) - Closed Specialty Diagnoses / Procedures Referred By [place] Referred To Contact Procedures Breast Imaging Screening Outside Reference Transcribed Order, Provider Referral ID Status Reason Start Date Expiration Date Visits Re quested Visits Authorized [id number] Closed 05/12/2023 06/10/2024 1 1 Encounter Details Date Type Department Care Team ([facility] st Contact Info) Description 09/23/2018 Hospital Encounter [facility] [address] [place] [id number] Social History Tobacco Use Types Packs/Day Years Used Date Smoking Tobacco: Never Smokeless Tobacco: Never Alcohol Use Standard Drinks/Week Comments Yes 0 (1 standard drink = 0.6 oz pur e alcohol) Comments Unknown Sex and Gender Information Value Date Recorded Sex Assigned at Not on file Legal Sex Female 4:15 AM CREAM TESTER Gender Identity Not on file Sexual Orientation [...] CDT) Impressions [facility]MO[facility] - 05/12/2023 2:40 PM CREAM TESTER These images are for Reference purposes only and have not been reviewed by [facility]. There will be no report generated by a [facility] Radiologist. Narrative [facility]MO[facility] - 05/12/2023 2:40 PM CREAM TESTER EXAMINATION: Images For Reference Purposes Only us Provider Transcribed Order IMG MAMMO PROCEDURES Final Result [facility] documented in this encounter Visit Diagnoses Not on filedocumented in this encounter Care Teams Direct Support Staff Member Relationship Specialty Start Date End Date Ernie Zhang MD PCP - General Internal Medicine 09/21/18 Grace Mccabe MD [address] [address] Referring Physician Gynecology 09/21/18 documented as of this encounter
--- OUTSIDE RECORDS SUMMARY | 2024-10-20 00:39 | XMS_ITS | Referral Summary ---
Author Organization [facility] Address [address] [place] [address] Care Team Providers Care School Transportation Supervisor Name Role Phone Ernie Zhang MD Primary Care Provider Grace Mccabe MD Unavailable [phone] Rip Evans MD Unavailable [phone] Allergies No known active allergies Medications citalopram [...] on file Legal Sex Female 4:15 AM CASH MANAGER Gender Identity Not on file Sexual Orientation Not on file Last Filed Vital Signs Vital Sign Reading Time Taken Comments Blood Pressure 126/83 05/09/2024 8:04 AM CASH MANAGER Pulse 65 05/09/2024 8:04 AM CASH MANAGER Temperature 36.2 C (97.2 F) 05/09/2024 8:04 AM CASH MANAGER Respiratory Rate 18 05/09/2024 8:04 AM CASH MANAGER Oxygen Saturation 96% 05/09/2024 8:04 AM CASH MANAGER Inhaled Oxygen Concentration - - Weight 118.5 kg (261 lb 3.2 oz) 05/09/2024 8:01 AM CASH MANAGER Height 167.6 cm (5' 6 ) 05/13/2021 8:37 AM CASH MANAGER Body Mass Index 42.16 05/13/2021 8:37 AM CASH MANAGER Plan of Treatment Not on file Procedures Procedure Name Priority Date/Time Associated Diagnosis Comments SCREENING MAMMOGRAM BILATERAL W SARAH Schedule Routine, Read Routine (OP Routine) 04/25/2024 7:35 AM CASH MANAGER Screening mammogram, encounter for HEPATITIS PANEL, ACUTE Routine 01/02/2019 9:48 AM CDT Abnormal laboratory test result from Last 3 Months or Most Recently Relevant to Health Maintenance Results * Screening Mammogram Bilateral W Sarah (04/25/2024 7:35 AM CASH MANAGER) Anatomical Region Laterality Modality Breast Bilateral Mammography Narrative 04/25/2024 3:32 PM CASH MANAGER Mammogram Technique: Bilateral Digital Breast Tomosynthesis, Bilateral C-view 2D Screening mammogram. Views obtained: bilateral craniocaudal and bilateral mediolateral oblique. Computer Aided Detection was performed. Mammogram Findings: The present examination has been compared to prior imaging studies performed at [facility] on 04/23/2023 and 06/17/2023, and at [place], [place] on 03/02/2022. The breasts are almost [...] compared to prior imaging studies performed at [facility] on 04/23/2023 and 06/17/2023, and at [place], [place] on 03/02/2022. The breasts are almost entirely fatty. There is no suspicious abnormality in either breast. Impression: There is no mammographic evidence of malignancy. Annual screening mammography is recommended. OVERALL FINAL ASSESSMENT: BI-RADS CATEGORY 1: Negative. Self Screening Mammogram IMG MAMMO PROCEDURES Fi nal Result * Hepatitis panel, acute (01/02/2019 9:48 AM CDT) Hep A IgM Negative Negative [facility] Hep B core IgM Negative Negative [facility] Hep C Ab Negative [facility] HepBsAg Nonreactive Nonreactive [facility] Blood specimen (specimen) 01/02/2019 9:48 AM CDT 01/02/2019 10:23 AM CDT Ramona Chiang MD PhD LAB MICROBIOLOGY - GENERAL OR DERABLES Final Result ROBI [address] [address] Department [place] [address] from Last 3 Months or Most Recently Relevant to Health Maintenance [place] [address] [facility] [id number] Care Teams School Transportation Supervisor Relationship Specialty Start Date End Date Ernie Zhang MD PCP - General Internal Medicine 09/21/18 Grace Mccabe MD [address] [place] [address] Referring Physician Gynecology 09/21/18 Rip Evans MD [address] [place] [address] Consulting Physician Internal Medicine 04/26/23
--- OUTSIDE RECORDS SUMMARY | 2024-10-20 00:39 | XMS_ITS | Clinical Summary ---
Author Organization [facility] Address [address] [place] [address] Care Team Providers Care Customer Service Driver Name Role Phone Ernie Zhang MD Primary Care Provider Grace Mccabe MD Unavailable [phone] Rip Evans MD Unavailable [phone] Allergies No known active allergies Medications citalopram [...] on file Legal Sex Female 4:15 AM GRAIN UNLOADER Gender Identity Not on file Sexual Orientation Not on file Obstetrics History Last Filed Vital Signs Vital Sign Reading Time Taken Comments Blood Pressure 126/83 05/09/2024 8:04 AM GRAIN UNLOADER Pulse 65 05/09/2024 8:04 AM GRAIN UNLOADER Temperature 36.2 C (97.2 F) 05/09/2024 8:04 AM GRAIN UNLOADER Respiratory Rate 18 05/09/2024 8:04 AM GRAIN UNLOADER Oxygen Saturation 96% 05/09/2024 8:04 AM GRAIN UNLOADER Inhaled Oxygen Concentration - - Weight 118.5 kg (261 lb 3.2 oz) 05/09/2024 8:01 AM GRAIN UNLOADER Height 167.6 cm (5' 6 ) 05/13/2021 8:37 AM GRAIN UNLOADER Body Mass Index 42.16 05/13/2021 8:37 AM GRAIN UNLOADER Plan of Treatment Health Maintenance Due Date [...] Read Routine (OP Routine) 04/25/2024 7:35 AM GRAIN UNLOADER Screening mammogram, encounter for HEPATITIS PANEL, ACUTE Routine 01/02/2019 9:48 AM CDT Abnormal laboratory test result from Last 3 Months or Most Recently Relevant to Health Maintenance Results * Screening Mammogram Bilateral W Sarah (04/25/2024 7:35 AM GRAIN UNLOADER) Anatomical Region Laterality Modality Breast Bilateral Mammography Narrative 04/25/2024 3:32 PM GRAIN UNLOADER Mammogram Technique: Bilateral Digital Breast Tomosynthesis, Bilateral C-view 2D Screening mammogram. Views obtained: bilateral craniocaudal and bilateral mediolateral oblique. Computer Aided Detection was performed. Mammogram Findings: The present examination has been compared to prior imaging studies performed at [facility] on 04/23/2023 and 06/17/2023, and at [facility] [place], [place] on 03/02/2022. The breasts are almost [...] compared to prior imaging studies performed at [facility] on 04/23/2023 and 06/17/2023, and at [place], [place] on 03/02/2022. The breasts are almost [...] OR DERABLES Final Result Performing Organization Address City/State/[facility] Co de Phone Number ROBI [address] [address] [address] Department [place] [address] from Last 3 Months or Most Recently Relevant to Health Maintenance Insurance [employer] [facility] [id number] [facility] [employer] Address: [facility] [id number] [address] [facility] [address] Care Teams Customer Service Driver Relationship Specialty Start Date End Date Ernie Zhang MD PCP - General Internal Medicine 09/21/18 Grace Mccabe MD [address] [place], [place] [id number] Referring Physician Gynecology 09/21/18 Rip Evans MD [address] [place] [address] Consulting Physician Internal Medicine 04/26/23
--- OUTSIDE RECORDS SUMMARY | 2024-10-20 00:39 | XMS_ITS | Clinical Summary ---
Author Organization [facility] Address [address] [place] [address] Care Team Providers Care Help Desk Associate Name Role Phone Ernie Zhang MD Primary Care Provider [phone] Lloyd Mendez MD Unavailable [phone] Source Comments [facility],non-owned Affiliates and Associated Physician Practices is amultiple site organization consisting of ambulatory clinics and hospital sitesin [place], [place], [place] and [place]. This disclosure is being madepursuant to the Care Everywhere program and may not contain all information available regarding this patient. Last updated 18.[facility] Allergies No known active allergies Medications * Be aware that medications may not be up to date on this document. Alwaysverify current medications with the patient. citalopram (CeleXA) 40 MG tablet Take 1 (one) tablet by mouth at bedtime 11/08/19 24 Active clobetasol (Temovate) 0.05 % solution Apply to affected area as needed 10/14/19 23 Active simvastatin (Zocor) 20 MG tablet Take 1 (one) tablet by mouth at bedtime 10/26/19 24 Active spironolactone (Aldactone) 100 MG tablet Take 1 (one) tablet by mouth once daily 03/15/20 23 Active spironolactone (Aldactone) 50 MG tablet Take 1 (one) tablet by mouth at bedtime 11/09/19 Active ascorbic acid (VITAMIN C) 500 MG tablet Take 1 (one) tablet by mouth once daily Active Cholecalciferol (Vitamin D3) 125 MCG (5000 UT) Take 1 tablet by mouth once daily Active Baxter-3 Fatty Acids (fish oil) 1000 MG capsule Take 1 (one) capsule by mouth once daily Active oxyCODONE, immediate release, (Roxicodone) 5 MG tabletIndications :Thyroid nodule,S/P partial thyroidectomy Take 1 (one) tablet by mouth every 4 hours as needed 12 tablet 12/03/19 Active Additional Information Patient not taking.Reported on 12/31/2023 acetaminophen (Tylenol) 325 MG tablet Take 2 (two) tablets by mouth every 6 hours Maximum allowable Acetaminophen amount = 4 Grams (4000 mg) / 24 hours. 120 tablet 12/03/19 Active Additional Information Patient not taking.Reported on 12/31/2023 ibuprofen (Motrin) 600 MG tablet Take 1 (one) tablet by mouth every 6 hours 60 tablet 12/03/19 Active Additional Information Patient not taking.Reported on 12/31/2023 docusate sodium (Colace) 100 MG capsule Take 1 (one) capsule by mouth 2 times daily as needed for Constipation 20 capsule 12/03/19 Active Additional Information Patient not taking.Reported on 12/31/2023 Active Problems Problem Noted Date Diagnosed Date Thyroid nodule 10/22/2023 Social History Tobacco Use Types Packs/Day Years Used Date Smoking Tobacco: Never Smokeless Tobacco: Never Tobacco Cessation:Counseling Given: Not Answered Alcohol Use Standard Drinks/Week Comments Yes 0 (1 standard drink = 0.6 oz pur e alcohol) socially maybe 1-2 a month Comments Unknown Sex and Gender Information Value Date Recorded Sex Assigned at Female 01/10/2024 4:06 PM CDT Legal Sex Female 9:30 AM CDT Gender Identity Female 01/10/2024 4:06 PM [...] VACCINE ( - 2023-2 5 season) 2024 DEPRESSION SCREENING 06/21/2024 INFLUENZA VACCINE (Season Ended) 2025 SCREENING FOR DIABETES 11/22/2026 11/23/2023 HEPATITIS B [...] 7 - 26 mg/dL 11/23/2023 3:13 PM [facility] Creatinine 0.96 0.56 - 0.96 mg/dL 11/23/2023 3:13 PM [facility] Sodium 137 136 - 145 mmol/L 11/23/2023 3:13 PM [facility] Potassium 4.0 3.5 - 4.5 mmol/L 11/23/2023 3:13 PM [facility] Chloride 100 98 - 107 mmol/L 11/23/2023 3:13 PM [facility] CO2 30(H) 22 - 29 mmol/L 11/23/2023 3:13 PM [facility] Glucose 82 70 - 115 mg/dL 11/23/2023 3:13 PM [facility] Calcium 10.0 8.4 - 10.2 mg/dL 11/23/2023 3:13 PM [facility] Anion Gap 7 6 - 16 11/23/2023 3:13 PM [facility] BUN/Creatinine Ratio 18 7 - 23 11/23/2023 3:13 PM [facility] Osmolality Calculated 285 275 - 295 mOsm/kg 11/23/2023 3:13 PM [facility] eGFR by CKD-EPI 68(L) >=90 mL/min/1.7 3 m2 11/23/2023 3:13 PM [facility] Blood BLOOD SPECIMEN / Unknown Lab Venipuncture / Unknown 11/23/2023 2:03 PM CDT 11/23/2023 2:43 PM CDT us Malcolm Hampton MD LAB - CHEMISTRY ORDERABLES Fi nal Result [facility] [address] [place] [address], [place] [phone] from Last 3 Months or Most Recently Relevant to Health Maintenance Insurance [employer] Advance Directives * Full Code (Latest Code Status on File) Date Activated Date Inactivated Comments 12/02/2023 12:24 PM 12/03/2023 11:25 AM Care Teams Help Desk Associate Relationship Specialty Start Date End Date Ernie Zhang MD [address] [place] [id number] PCP - General Internal Medicine 11/23/23 Lloyd Mendez MD [address] [place] [address] Physician Internal Medicine 11/23/23
--- OUTSIDE RECORDS SUMMARY | 2024-10-20 00:39 | XMS_ITS | Data Portability ---
Author Organization [place] [facility] [employer], Main Office Address [address] [place] [address] Care Team Providers Care Public Health Name Role Phone TETE ZHANG Primary Care Provider TETE ZHANG Referring Provider DAVID EDMOND Computer Aide Assessment Encounter Date Assessment Date Assessment LastModified by Organization Details LastModified Time 07/13/2024 07/13/2024 This note is dictated and transcribed by [employer]. Activity Manager variances may occur. Despite proofreading, typographical errors may occur. Occasional wrong-word or 'mtcfu-b-vpmw' substitutions may have occurred due to the inherent limitations of voice recording. Read the chart carefully and recognize, using context, where substitutions have occurred. Not available 07/13/2024 10:47:44 08/17/2024 08/17/2024 This note is dictated and transcribed by [employer]. [employer] variances may occur. Despite proofreading, typographical errors may occur. Occasional wrong-word or 'ofcks-j-qxkv' substitutions may have occurred due to the inherent limitations of voice recording. Read the chart carefully and recognize, using context, where substitutions have occurred. Not available 08/17/2024 10:56:28 10/12/2024 10/12/2024 This note is dictated and transcribed by [employer]. Activity Manager variances may occur. Despite proofreading, typographical errors may occur. Occasional wrong-word or 'apssi-g-sgup' substitutions may have occurred due to the inherent limitations of voice recording. Read the chart carefully and recognize, using context, where substitutions have occurred. Not available 10/12/2024 16:56:09 Plan of Treatment Reminders Order Date Submit Date Provider Last Modified By Organization Details Last Modified Time Details Appointments Any 15 2024 08:15A M Tete Zhang MD Not available Not available Not available Establish ed Patient 15 2024 03:45P M David Edmond DPM Not available Not available Not available Lab glycohemo globin, total, blood 2024 025 [facility] (Lab), [address] [place], [address], 07/14/2024 21:41:40 CBC 2024 025 [facility] (Lab), [address] [place], [address], 07/13/2024 18:48:08 lipid panel, serum 2024 025 [facility] (Lab), [address] [place], [address], 07/13/2024 18:53:58 CMP, serum or plasma 2024 025 [facility] (Lab), [address] [place], [address], 07/13/2024 18:54:03 Referral physical therapist referral 2024 025 FLOYD Not available 07/17/2024 13:17:26 Procedures colonosco py screening (PROC) - Please call patient to schedule. Patient requestin g to see Dr. Monico Caban 2024 025 [place] [address] [facility], [address], [address], [place], [address], 08/28/2024 08:52:41 Surgeries None recorded. Imaging None recorded. Medication Orders simvastat in 20 mg tablet 2024 025 [id number], [address] [facility] [place], [place], [id number], 07/13/2024 09:38:40 Patient TargetsNo targets recorded. Patient Instructions Encounter Date Encounter Id Patient Instructions Last Modified By Organization Details Last Modified Time 07/13/2024 [id number] achilles tendonitis education [email or web address] Not available 07/13/2024 10:49:35 achilles tendon: exercises [email or web address] Not available 07/13/2024 10:49:35 10/03/2024 [id number] continue to use prescription cream with exfoliation and moisturization. Take OTC benadryl for itching at night time. [email or web address] Not available 10/03/2024 09:51:05 Patients symptom s have improved, continue with treatment plan [email or web address] Not available 10/03/2024 09:51:31 Reason for Referral Physical Therapist Referral for Left Achilles tendinitis Referring Physician: David Edmond, Podiatric Surgery, Encounter Date: 07/13/2024 Results Created Date Observation Date Name Description Value Unit Range Abnormal Flag Note LastModifiedBy Organization Detail LastModifiedTime 07/13/1907/13/2024 CBC W/O DIFFE RENTI AL white blood cells 4.7 x10'3 /uL 4.2-10 .8 Not Available [facility] (Lab) [address] [place], [address], 07/13/2024 19:11:10 07/13/19 25 07/13/2024 CBC W/O DIFFE RENTI AL red blood cells 4.64 x10'6 /uL 3.80-5 .20 Not Available [facility] (Lab) [address] [place], [address], 07/13/2024 19:11:10 07/13/19 25 07/13/2024 CBC W/O DIFFE RENTI AL hemoglobin 13.6 g/dL 12.0-1 5.6 Not Available [facility] (Lab) [address] [place], [address], 07/13/2024 19:11:10 07/13/19 25 07/13/2024 CBC W/O DIFFE RENTI AL hematocrit 42.0 % 35.7-4 5.7 Not Available [facility] (Lab) [address] [place], [address], 07/13/2024 19:11:10 07/13/19 25 07/13/2024 CBC W/O DIFFE RENTI AL mean red cell volume 90.5 fL 82.0-9 9.0 Not Available [facility] (Lab) [address] [facility] [place], [address], 07/13/2024 19:11:10 07/13/19 25 07/13/2024 CBC W/O DIFFE RENTI AL mean red cell hemoglobin 29.3 pg 27.0-3 3.0 Not Available [facility] (Lab) [address] [place], [address], 07/13/2024 19:11:10 07/13/19 25 07/13/2024 CBC W/O DIFFE RENTI AL mean RBC HGB concentratio n 32.4 g/dL 31.0-3 6.0 Not Available [facility] (Lab) [address] [place], [address], 07/13/2024 19:11:10 07/13/19 25 07/13/2024 CBC W/O DIFFE RENTI AL red cell distribution width 13.4 % 11.8-1 5.5 Not Available [facility] (Lab) [address] [place], [address], 07/13/2024 19:11:10 07/13/19 25 07/13/2024 CBC W/O DIFFE RENTI AL platelets 88 x10'3 /uL 150-40 0 low Not Available [facility] (Lab) [address] [place], [address], 07/13/2024 19:11:10 07/13/19 25 07/13/2024 CBC W/O DIFFE RENJOSE AL mean platelet volume 14.0 fL 9.0-12 .4 high Not Available [facility] (Lab) [address] [place], [address], 07/13/2024 19:11:10 07/13/19 25 07/13/2024 LIPID PANEL cholesterol 159 mg/dL 140-19 9 NIH LISA NSUS RECOM MENDA TION FOR MANDY STERO L: ADULT CHILD LOW RISK: <200 <170 BORDE RLINE : <200- 239 ----- HIGH RISK: >240 >200 Not Available [facility] (Lab) [address] [place], [address], 07/13/2024 18:53:58 07/13/19 25 07/13/2024 LIPID PANEL triglyceride s 82 mg/dL 0-150 NIH LISA NSUS REPOR T RECOM MENDA TION FOR TRIGL YCERI LUCRECIA: ADULT CHILD LOW RISK: <150 ----- BODER LINE: 150-1 99 ----- HIGH RISK: >200 ----- Not Available [facility] (Lab) [address] [place], [address], 07/13/2024 18:53:58 07/13/19 25 07/13/2024 LIPID PANEL HDL cholesterol 55 mg/dL 40- Not Available [facility] (Lab) [address] [place], [address], 07/13/2024 18:53:58 07/13/19 25 07/13/2024 LIPID PANEL [...] WILL NOT BE REPOR DEBORA. Not Available [facility] (Lab) [address] [place], [address], 07/13/2024 18:53:58 07/13/19 25 07/13/2024 COMPR EHENS JOSIAH METAB OLIC PANEL sodium 138 mmol/ L 137-14 5 Not Available [facility] (Lab) [address] [place], [address], 07/13/2024 18:54:03 07/13/19 25 07/13/2024 COMPR EHENS JOSIAH METAB OLIC PANEL potassium 4.3 mmol/ L 3.5-5. 1 Not Available [facility] (Lab) [address] [place], [address], 07/13/2024 18:54:03 07/13/19 25 07/13/2024 COMPR EHENS JOSIAH METAB OLIC PANEL chloride 104 mmol/ L 98-107 Not Available [facility] (Lab) [address] [place], [address], 07/13/2024 18:54:03 07/13/19 25 07/13/2024 COMPR EHENS JOSIAH METAB OLIC PANEL carbon dioxide 29 mmol/ L 22-30 Not Available [facility] (Lab) [address] [place], [address], 07/13/2024 18:54:03 07/13/19 25 07/13/2024 COMPR EHENS JOSIAH METAB OLIC PANEL anion gap 9.3 mmol/ L 14-22 low Not Available [facility] (Lab) [address] [place], [address], 07/13/2024 18:54:03 07/13/19 25 07/13/2024 COMPR EHENS JOSIAH METAB OLIC PANEL glucose 114 mg/dL 70-99 high Not Available [facility] (Lab) [address] [place], [address], 07/13/2024 18:54:03 07/13/19 25 07/13/2024 COMPR EHENS JOSIAH METAB OLIC PANEL BUN 15 mg/dL 8-19 Not Available [facility] (Lab) [address] [place], [address], 07/13/2024 18:54:03 07/13/19 25 07/13/2024 COMPR EHENS JOSIAH METAB OLIC PANEL creatinine 0.93 mg/dL 0.66-1 .25 Not Available [facility] (Lab) [address] [place], [address], 07/13/2024 18:54:03 07/13/19 25 07/13/2024 COMPR EHENS JOSIAH METAB OLIC PANEL GFR >60 Refer ence Range : [place] ge GFR Healt hy Adult : >60 [...] or ethni c subgr oups, such as Lizzeth nics. Outsi de the valid ated ruthie [...] calcu lator is avail able on the [facility] websi te: https :[email or web address] smith.o rg/pr ofess ional s/kdo qi/gf r_cal culat or Not Available [facility] (Lab) [address] [place], [address], 07/13/2024 18:54:03 07/13/19 25 07/13/2024 COMPR EHENS JOSIAH METAB OLIC PANEL alkaline phosphatase 89 U/L 38-126 Not Available [facility] (Lab) [address] [place], [address], 07/13/2024 18:54:03 07/13/19 25 07/13/2024 COMPR EHENS JOSIAH METAB OLIC PANEL alanine aminotransfe rase 24 U/L 0-35 Not Available [facility] (Lab) [address] [place], [address], 07/13/2024 18:54:03 07/13/19 25 07/13/2024 COMPR EHENS JOSIAH METAB OLIC PANEL aspartate aminotransfe rase 33 U/L 15-37 Not Available [facility] (Lab) [address] [place], [address], 07/13/2024 18:54:03 07/13/19 25 07/13/2024 COMPR EHENS JOSIAH METAB OLIC PANEL bilirubin, total 0.70 mg/dL 0.20-1 .30 Not Available [facility] (Lab) [address] [place], [address], 07/13/2024 18:54:03 07/13/19 25 07/13/2024 COMPR EHENS JOSIAH METAB OLIC PANEL calcium 9.3 mg/dL 8.4-10 .2 Not Available [facility] (Lab) [address] [place], [address], 07/13/2024 18:54:03 07/13/19 25 07/13/2024 COMPR EHENS JOSIAH METAB OLIC PANEL total protein 7.4 g/dL 6.3-8. 2 Not Available [facility] (Lab) [address] [place], [address], 07/13/2024 18:54:03 07/13/19 25 07/13/2024 COMPR EHENS JOSIAH METAB OLIC PANEL albumin 4.3 g/dL 3.4-5. 0 Not Available [facility] (Lab) [address] [place], [address], 07/13/2024 18:54:03 07/13/19 25 07/13/2024 COMPR EHENS JOSIAH METAB OLIC PANEL globulin 3.1 g/dL 2.6-4. 2 Not Available [facility] (Lab) [address] [place], [address], 07/13/2024 18:54:03 07/13/19 25 07/13/2024 COMPR EHENS JOSIAH METAB OLIC PANEL A/G ratio 1.4 ratio 1.0-2. 0 Not Available [facility] (Lab) [address] [place], [address], 07/13/2024 18:54:03 07/13/19 25 07/14/2024 HEMOG LOBIN A1C HA1C 5.9 % 4.0-6. 0 Diabe arcenio Scree france Crite brenda: <5.7% Consi stent with absen ce of diabe arcenio 5.7-6 .4% Consi stent with incre ased risk for diabe arcenio (pred iabet es) >OR=6 .5% Consi stent with diabe arcenio REFER ENCE: Diabe arcenio Care 2016, 39(Moraes ppl.1 ):s13 -s22 Not Available [facility] (Lab) [address] [place], [address], 07/14/2024 21:41:40 07/13/1903/29/2024 bone densi ty No observ ation record ed. [address], [address], 07/13/2024 18:42:37 07/14/19 25 03/29/2024 bone densi ty No observ ation record ed. [place] [id number] [address], [address], 07/14/2024 10:52:33 Result Notes None recorded. Problems Name Problem SNOMED Code Status Onset Date Resolution Date Notes Provider Name and Address Organization Details Recorded Time COVID-19 841122773 Active 2022 HENRIQUE Galarza, [place] [facility] 3 11:14:17 Left Achilles tendiniti s 87071852738 9102 Active 2022 Tete Zhang MD [address], [place], [address] , [place] [facility] 3 10:22:28 Pain in left foot 38189039124 9107 Active 2022 David Edmond DPM [address], [address], [place], [address] , [place] [facility] 3 11:14:03 Porokerat osis 221983162 Active 2022 David Edmond DPM [address], [address], [place], [address] , [place] [facility] 3 11:15:20 Bone spur of left foot 18176574801 9108 Active 2022 David Edmond DPM [address], [place], [address] , [place] [facility] 3 12:14:35 Steatotic liver disease 296631829 Active 2022 Tete Zhang MD [address], [place], [address] , [place] [facility] 3 10:41:22 Mammograp hy abnormal 819999648 Active 2022 Tete Zhang MD [address], [address], [place], [address] , [place] [facility] 3 10:42:47 Pain of right knee joint 31697867480 4100 Active 2023 Tete Zhang MD [address], [place], [address] , [facility] 4 09:19:45 Pruritic disorder 215981397 Active 2024 Renee Dvais [facility], [facility] 5 12:04:19 Atopic dermatiti s 42573084 Active [address] Marcos [address], [facility] [address], [place], [address] , [facility] 5 09:50:10 Bursitis of left Achilles bursa 19922690286 216460 Active 2024 David Edmond DPM [address], [facility] [address], [place], [address] , [facility] 5 16:56:29 Anxiety state 914199922 Completed Not Available [facility] 3 04:53:38 Thyroid nodule 822856127 Active Not Available [facility] 3 04:53:38 Long-term drug therapy Completed 202104/15/[address] Not [address] [facility] 3 04:53:38 Edema 399460650 Active 2020 Not [address] [facility] 3 04:53:38 Adult health examinati on Active 2021 Not Available [facility] 3 04:53:38 Pain in left lower limb 390721224 Completed 202104/15/2022 Not [address] [facility] 3 04:53:39 Foot swelling 749416523 Completed Not Available [facility] 3 04:53:39 Thrombocy topenic disorder 824171739 Active 2020 Not Available [facility] 3 04:53:39 Knee pain Completed Not Available [facility] 3 04:53:39 Genital herpes simplex 58344454 Active Not Available [facility] 3 04:53:39 Osteoarth ritis 527181884 Active Not Available [facility] 3 04:53:39 Insect bite reaction 273360663 Completed Not Available [facility] 3 04:53:39 Hypothyro idism 48033343 Active Not Available [facility] 3 04:53:39 Obesity 851566603 Active Not Available [facility] 3 04:53:39 Anxiety 38007619 Active Not Available [facility] 3 04:53:39 Hyperlipi demia 95674077 Active Not Available [facility] 3 04:53:40 Alopecia 02888084 Active Not Available [facility] 3 04:53:40 Red eye 533181078 Completed Not Available [facility] 3 04:53:40 Hyperglyc emia 76261200 Active 2021 Not Available [facility] 3 04:53:40 Administr ation of influenza vaccine Completed 202104/15/2022 Not Available [facility] 3 04:53:40 Problem Notes None recorded. Procedures Surgical History Date Name Laterality Status Provider Name and Address Organization Details Recorded Time 10/13/19 25 Callus Debridement, One completed David Edmond DPM [address], [place], [address], [employer] 10/12/2024 16:55:10 10/13/19 25 Plantar Fascia Injection Left Foot completed David Edmond DPM [address], [place], [address], [employer] 10/12/2024 16:55:01 08/17/19 25 Callus Debridement, One completed David Edmond DPM [address], [place], [address], [employer] 08/17/2024 10:54:26 06/01/20 23 Callus Debridement, One completed David Edmond DPM [address], [place], [address], [employer] 06/02/2023 11:08:58 06/01/20 23 Plantar Fascia Injection Left Foot completed David Edmond DPM [address], [place], [address], [employer] 06/02/2023 11:10:08 05/06/20 23 Callus Debridement, One completed David Edmond DPM [address], [place], [address], [employer] 05/06/2023 12:26:02 04/08/20 23 Callus Debridement, One completed David Edmond DPM [address], [place], [address], [employer] [facility] 04/08/2023 11:15:36 09/07/19 15 Most Recent Bone Density completed Not Available [facility] 08/19/2022 04:43:51 03/20/20 14 Date of Last Colonoscopy completed Not Available [facility] 08/19/2022 04:43:51 Meniscal trnspl knee w/scpe completed Clary Finley [facility] [employer] [facility] 04/08/2023 11:30:17 Imaging Results Imaging Date Name Status LastModified by [employer] [facility] Details LastModified Time 03/29/2024 bone density completed [address], [address], 07/13/2024 18:42:37 03/29/2024 bone density completed [address], [address], 07/14/2024 10:52:33 Procedure Notes None recorded. Medical [...] active Not Available Not Available Not Available triamcinol one acetonide 0.1 % topical cream APPLY A THIN LAYER TO ARMS AND CHEST TWICE DAILY active Not Available Not Available No t Available levothyrox ine 25 mcg tablet TAKE [...] Not Available spironolac tone 50 mg tablet TAKE 3 TABLETS BY MOUTH ONCE DAILY active Not Available Not Available No [...] Available Not Available Vitals Date Recorded Body weight Body mass index (BMI) Body height Body temperature Heart rate Oxygen saturation Oxygen saturation in Arterial blood by Pulse oximetry Systolic blood pressure Diastolic blood pressure Provider Name and Address Organization Details Last Updated DateTime 5 183597. 42 g 41.8 kg/m2 167.64 cm 97.5 [degF] 98 /min 95 % 95 % 134 mm[Hg] 70 mm[Hg] MCKENZIE Lundy - [facility] [employer] [facility] 5 09:14:53 Date Recorded Body height Body mass index (BMI) Body weight Heart rate Respiratory rate Oxygen saturation Oxygen saturation in Arterial blood by Pulse oximetry Systolic blood pressure Diastolic blood pressure Provider Name and Address Organization Details Last Updated DateTime 5 167.64 cm 41.8 kg/m2 939295. 42 g 69 /min 14 /min 98 % 98 % 118 mm[Hg] 71 mm[Hg] Clary Finley [employer] [facility] [employer] [facility] 5 10:22:08 Date Recorded Body height Body mass index (BMI) Body weight Heart rate Respiratory rate Oxygen saturation Oxygen saturation in Arterial blood by Pulse oximetry Systolic blood pressure Diastolic blood pressure Provider Name and Address Organization Details Last Updated DateTime 5 167.64 cm 41.8 kg/m2 935838. 42 g 76 /min 14 /min 98 % 98 % 120 mm[Hg] 79 mm[Hg] Clary Finley [facility] [employer] [facility] 5 10:41:17 Date Recorded Body height Body mass index (BMI) Body weight Body temperature Heart rate Oxygen saturation Oxygen saturation in Arterial blood by Pulse oximetry Systolic blood pressure Diastolic blood pressure Provider Name and Address Organization Details Last Updated DateTime 5 167.64 cm 42.3 kg/m2 686691. 2 g 96.2 [degF] 65 /min 97 % 97 % 138 mm[Hg] 78 mm[Hg] Lucy george [employer] [facility] [employer] [facility] 5 09:17:04 Date Recorded Body height Body mass index (BMI) Body weight Heart rate Respiratory rate Oxygen saturation Oxygen saturation in Arterial blood by Pulse oximetry Systolic blood pressure Diastolic blood pressure Provider Name and Address Organization Details Last Updated DateTime 5 167.64 cm 42.3 kg/m2 744017. 2 g 86 /min 14 /min 99 % 99 % 116 mm[Hg] 74 mm[Hg] Clary [facility] [employer] [facility] [employer] [facility] 5 16:29:03 Social History Question Answer Notes LastModified by Organizat ion Details LastModified Time Tobacco Smoking Status Never Smoker Not Available [employer] 08/19/2022 04:34:11 Do You Have An Advance Directive? No [id number] Information not available 08/19/2022 What Is Your Level Of Alcohol Consumption? Occasional Information not available 04/08/2023 What Is Your Level Of Caffeine Consumption? Occasional [id number] Information not available 08/19/2022 How Much Tobacco Do You Chew? None [id number] Information not available 08/19/2022 What Type Of Diet Are You Following? REGULAR [id number] Information not available 08/19/2022 Which Illicit Or Recreational Drugs Have You Used? 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 No [id number] Information not available 08/19/2022 What Was The Date Of Your Most Recent Tobacco Screening? 04/08/2023 Information not available 04/08/2023 Have You Ever Been Counseled For Unhealthy Alcohol Use? No Information not available 04/08/2023 Do You Use Any Illicit Or Recreational Drugs? No Information not available 04/08/2023 Do You Use Sunscreen Routinely? No [id number] Information not available 08/19/2022 Has Tobacco Cessation Counseling Been Provided? No Information not available 04/08/2023 Do You Or Have You Ever Used Any Other Forms Of Tobacco Or Nicotine? No Information not available 04/08/2023 Sex: Female Functional Status Question Answer Note LastModified by Organizat ion Details LastModified Time What is your exercise level? Heavy [id number] Information not available 08/19/2022 Mental Status None recorded. Family History Relationship Description Onset Age of this Age Resolved Age Notes LastModified by Organization Details LastModified Time Father Diabetes mellitus [id number] Not available 08/19/2022 04:44:00 Mother Diabetes mellitus [id number] Not available 08/19/2022 04:44:00 Mother Heart disease [id number] Not available 08/19/2022 04:44:00 Unspecified Relation Family [...] UNSPECIFIED 1 completed Not Available [facility] 08/19/2022 05:04:04 SARS-COV-2 (COVID-19) vaccine, UNSPECIFIED 1 completed Not Available [facility] 08/19/2022 05:04:04 Influenza, split virus, quadrivalent, PF 2 completed Not Available [facility] 08/19/2022 05:04:05 Influenza, split virus, quadrivalent, PF 1 completed Not Available [facility] 08/19/2022 05:04:05 Past Encounters Encounter ID Performer Location Encounter Start Date Encounter Closed Date Diagnosis/Indication Diagnosis SNOMED-CT Code Diagnosis ICD10 Code Diagnosis Note [id number] Tete Zhang MD Anna Marie_[facility] [address] [address] 10/21/2020 00:00:00 10/21/2020 12:21:43 [id number] MD LIEN [facility] [address] [address] 11/19/2020 00:00:00 11/19/2020 10:47:14 [id number] MD LIEN [facility] [address] [address] 03/24/2021 00:00:00 03/24/2021 10:39:11 [id number] MD LIEN [facility] [address] [address] 04/01/2021 00:00:00 04/01/2021 12:28:52 [id number] Tete Zhang MD S_[facility] [address] [facility] [place] [address] 07/29/2021 00:00:00 07/29/2021 09:36:55 [id number] Tete Zhang MD S_[facility] [address] [place] [address] 08/28/2021 00:00:00 08/28/2021 16:44:05 [id number] Tete Zhang MD S_[facility] [address] [facility] [place] [address] 11/27/2021 00:00:00 11/27/2021 15:39:15 [id number] Tete Zhang MD Anna Marie_[facility] [address] [facility] [place] [address] 04/16/2022 00:00:00 04/16/2022 17:27:17 [id number] Tete Zhang MD S_[facility] [address] [facility] [place] [address] 10/05/2022 09:41:28 10/05/2022 10:13:19 Hypothyroidism 56944206 E03.9 no meds needed Anxiety 25229255 F41.9 under good control with meds Obesity 067023695 E66.9 advised to lose weight, watch diet Alopecia 52160265 L65.9 spironolac tone helps Hyperlipidemia 39132206 E78.5 on meds, labs next time Edema 960836373 R60.9 improved Thrombocyt openic disorder 176046806 D69.6 stable and better Osteoarthritis 734675278 M19.90 ot Adult heal th examination 958552648 Z00.00 Colonoscop y- 04/17/2014 Mammogram- 02/09 at [facility]- 09/2018, 11/06/2021 by Poncho rendon- NEVERFLU- OV ID- 09/03/20. 09/29/20 [id number] Tete Zhang MD [facility] [address] [place] [address] 01/27/2023 09:46:30 01/27/2023 10:26:36 Hypothyroidism 91207391 E03.9 no meds, being watchd Anxiety 19593574 F41.9 under good control with meds Obesity 697703749 E66.9 advised to lose weight, watch diet Alopecia 02019613 L65.9 seeing derm Hyperlipidemia 15888031 E78.5 on meds, Edema 828219121 R60.9 improved Thrombocyt openic disorder 679265944 D69.6 stable and better Osteoarthritis 100412252 M19.90 otc Adult heal th examination 417600305 Z00.00 Colonoscop y- 04/17/2014 Mammogram- 02/09 at [facility]- 09/2018, 11/06/2021 by GYNJarrett ax- NEVERFLU- OV ID- 09/03/20. 09/29/20 Hyperglycemia 60658859 R 73.9 watching diet, nl A1c Left Achil les tendinitis 1708995183 27569 M76.62 naprosyn, exercises discussed [id number] David Edmond DPM [facility] [place] [address] [facility] [address] [place] [address] 04/08/2023 10:47:56 04/09/2023 11:27:46 Pain in left foot 3243808192 24098 M79.672 recommend supportive shoe gear such as new balance dailyno strenuous activities follow-up in 1 month Left Achil les tendinitis [id number] 06104 M76.62 continue naproxen per PCPrice therapystr etching exercises dispensedn o strenuous activities Recommend supportive shoe gear such as new balanceFol low-up in 1 month possible physical therapy at that time Porokeratosis 598878032 Q82.8 plantar right foot, sub 1st metatarsal headdebrid ed without incidentre commend Amlactin lotion 3 times daily over-the-c ounterReco mmend use of pumice stone dailyRecom mend supportive athletic shoe gear daily Bone spur of left foot 4437244863 02944 M25.775 left foot x-rays reviewed [id number] David Edmond DPM [facility] [place] [address] [place] [address] 05/06/2023 12:03:19 05/06/2023 12:29:14 Left Achilles tendinitis 8226047933 89337 M76.62 continue naproxen per PCPrice therapyRx physical therapystr etching exercises dispensedn o strenuous activities Recommend supportive shoe gear such as new balanceFol low-up in 1 month Porokeratosis 384534982 Q82.8 plantar right foot, sub 1st metatarsal headdebrid ed without incidentre commend Amlactin lotion 3 times daily over-the-c ounterReco mmend use of pumice stone dailyRecom mend supportive athletic shoe gear daily [id number] Tete Zhang MD [facility] [address] [place] [address] 05/26/2023 09:53:41 05/26/2023 10:47:30 Adult health examination 206199238 Z00.00 Z13.220 Colonoscop y- 04/17/2014 Mammogram- 2022 at [facility]- 09/2018, 11/06/2021 by GYNJarrett ax- NEVERFLU- 03/2022, OVID- 09/03/20. 09/29/20 Hypothyroidism 09714378 E03.9 no meds, being watched Anxiety 70597215 F41.9 under good control with meds Obesity 382664305 E66.9 advised to lose weight, watch diet Alopecia 89640227 L65.9 seeing derm Hyperlipidemia 43542600 E78.5 on meds, Edema 248317775 R60.9 improved Thrombocyt openic disorder 035538244 D69.6 seeing hematology and just had labs Osteoarthritis 037682100 M19.90 otc Hyperglycemia 03142741 R 73.9 watching diet, Left Achil les tendinitis 1024308584 27592 M76.62 naprosyn, getting PT Steatotic liver disease 030328141 K76.0 LOSE WEIGHT, WATCH DIET Long-term drug therapy 823857269 Z79.899 Mammography abnormal 168 538407 R92.8 getting compressio n views [id number] David Edmond DPM [facility] [place] [address] [place] [address] 06/01/2023 17:43:08 06/02/2023 16:46:41 Left Achilles tendinitis 6627212101 90615 M76.62 Injection today-disc ontinue physical therapy for 2 weeksNo strenuous activities Continue easy stretching at [facility] physical therapy-ho ld for 2 weeksRecom mend supportive shoe gear such as new balanceFol low-up in 3-4 weeks Porokeratosis 946606029 Q82.8 plantar right foot, sub 1st metatarsal headdebrid ed without incidentre commend Amlactin lotion 3 times daily over-the-c ounterReco mmend use of pumice stone dailyRecom mend supportive athletic shoe gear dailyFollo w-up as needed [id number] David Edmond DPM [facility] [place] [address] [place] [address] 06/29/2023 16:17:50 07/21/2023 07:16:57 Left Achilles tendinitis 5700529273 69170 M76.62 Continue easy stretching at [facility] physical therapy-ma y finishReco mmend supportive shoe gear such as new balanceFol low-up as needed [id number] Tete Zhang MD [facility] [address] [facility] [place] [address] 11/10/2023 15:17:13 11/10/2023 15:51:28 Adult health examination 698148803 Z00.00 Z13.220 Colonoscop y- 04/17/2014 Mammogram- 06/17/2023 at [facility]- 09/2018, 11/06/2021 by EVAPORATOR - DUEPneumov ax- NEVERFLU- 03/2022, OVID- 09/03/20. 09/29/20 Hypothyroidism 12013578 E03.9 no meds, being watched Anxiety 09915472 F41.9 under good control with meds Obesity 268774225 E66.9 advised to lose weight, watch diet, has gained weight Alopecia 53712048 L65.9 seeing derm Hyperlipidemia 92869239 E78.5 under control Edema 807560983 R60.9 improved Thrombocyt openic disorder 380955798 D69.6 seeing hematology and just had labs Osteoarthritis 112806023 M19.90 otc Hyperglycemia 75825906 R 73.9 watching diet, Steatotic liver disease 695521889 K76.0 advised to be on low fat diet Mammography abnormal 168 847618 R92.8 compressio n views nl Depression screening 171 339741 Z13.31 Thyroid nodule 524270470 E04.1 to get surgery Screening for malignant neoplasm of colon 440005991 Z12.11 Screening for osteoporosis 436551321 Z13.820 dexa due, gets from her gyne [id number] Tete Zhang MD [facility] [address] [place] [address] 03/13/2024 08:59:36 03/13/2024 09:31:11 Adult health examination 971233177 Z00.00 Z13.220 Colonoscop y- 04/17/2014 Mammogram- 06/17/2023 at [facility]- 09/2018, 11/06/2021 by EVAPORATOR - DUEPneumov ax- NEVERFLU- 03/2022, OVID- 09/03/20. 09/29/20 Hypothyroidism 58193198 E03.9 no meds, being watched, had labs at endo recently Anxiety 71650334 F41.9 under good control with meds Obesity 303036537 E66.9 advised to lose weight, watch diet, Alopecia 54106691 L65.9 seeing derm Hyperlipidemia 54763828 E78.5 under control Edema 548836199 R60.9 improved Thrombocyt openic disorder 988606081 D69.6 seeing hematology Osteoarthritis 306830716 M19.90 otc Hyperglycemia 62596946 R 73.9 watching diet, Steatotic liver disease 945005763 K76.0 advised to be on low fat diet Mammography abnormal 168 329920 R92.8 compressio n views nl Thyroid nodule 297190424 E04.1 s/p surgery Pain of ri ght knee joint 6264531087 11429 M25.561 Long-term drug therapy 505594233 Z79.899 had vit d checked at gyne Postmenopausal state 764 49077 Z78.0 Screening for malignant neoplasm of colon 002982938 Z12.11 [id number] Tete Zhang MD [facility] [address] [place] [address] 07/13/2024 09:07:54 07/13/2024 09:54:23 Adult health examination 605362078 Z00.00 Z13.220 Colonoscop y- 04/17/2014 - Ordered againMammo gram- 04/25/2024 Dexa- 04/13, nlPneumova x- NEVERFLU- 03/2022, 2022, OVID- 09/03/20. 09/29/20 Hypothyroidism 53390327 E03.9 no meds, being watched, had labs at [facility] , reviewed Anxiety 41766436 F41.9 under good control with meds Obesity 955401374 E66.9 advised to lose weight, watch diet, Alopecia 79929408 L65.9 seeing derm Hyperlipidemia 77153849 E78.5 under control Edema 217009656 R60.9 improved Thrombocyt openic disorder 835680957 D69.6 seeing hematology Osteoarthritis 737831553 M19.90 otc Hyperglycemia 44989310 R 73.9 advised to watch diet and lose weight Steatotic liver disease 709750962 K76.0 advised to be on low fat diet Thyroid nodule 126217266 E04.1 s/p surgery Pain of ri ght knee joint 5920468400 27112 M25.561 better Screening for malignant neoplasm of colon 631011201 Z12.11 [id number] David Edmond DPM [facility] Pod[facility] [place] [address] [place] [address] 07/13/2024 10:14:53 07/14/2024 13:41:32 Left Achilles tendinitis 9847291925 13494 M76.62 Continue easy stretching at [facility] physical therapy- AchillesRe commend supportive shoe gear such as new balanceFol low-up 4 weeks [id number] David [place]mond DPM [facility] [place] [address] [place] [address] 08/17/2024 10:35:06 08/18/2024 13:57:17 Left Achilles tendinitis 3329509214 96392 M76.62 Continue easy stretching at [facility] physical therapy- AchillesRe commend supportive shoe gear such as new balanceFol low-up 4-5 weeks Porokeratosis 163113178 Q82.8 plantar right foot, sub 1st metatarsal headdebrid ed without incidentRe commend use of pumice stone dailyRecom mend salicylic acid over-the-c ounter twice daily until blister then discontinu e monitor for signs of infection present seek medical attention immediatel yRecommend supportive athletic shoe gear dailyFollo w-up 5 weeks [id number] Tete Zhang MD [facility] [address] [place] [address] 10/03/2024 09:01:55 10/03/2024 10:32:05 Pruritic disorder 017431579 L29.9 Atopic dermatitis 711506 01 L20.9 [id number] David Edmond DPM [facility] [place] [address] [place] [address] 10/12/2024 16:23:51 10/17/2024 12:33:23 Left Achilles tendinitis 8614684953 47270 M76.62 Continue easy stretching at homeresol ed with physical therapy which she completed Porokeratosis 120965470 Q82.8 plantar right foot, sub 1st metatarsal headdebrid ed without incidentRe commend use of pumice stone dailyRecom mend salicylic acid over-the-c ounter twice daily until blister then discontinu e monitor for signs of infection present seek medical attention immediatel yRecommend supportive athletic shoe gear dailymay require surgical excision if continues be problemati cFollow-up 1 month Bursitis o f left Achilles bursa [id number] 6584421 M76.62 injection todayno Strenuous activities Monitor for signs of infection present seek medical attention immediatel yOffloadin g at all timesRecom mend Achilles heel sleeveSupp ortive shoe gear only with soft heel counterFol low-up in 1 month if continues to be problemati c Health Concerns Section Related Observation LastModified by Organization Detai ls LastModified Time None Recorded Concern Status LastModified by Organization Details LastModified Time None Recorded Advance Directives Directive N: Payers Encounter Date Sequence Insurance Name Policy Number Policy Garcia Covered Member ID Garcia Member ID Guarantor Name 07/13/2024 1 [employer] - OPEN [employer]ESS [id number] Karishma A Steven [id number] OI Karishma A Steven 07/13/2024 1 [employer]ESS [id number] Karishma A Steven [id number] OI Karishma A Steven 08/17/2024 1 [employer] - [employer]ESS [id number] Karishma A Steven [id number] OI Karishma A Steven 10/03/2024 1 [employer] - [employer]ESS [id number] Karishma A Steven [id number] OI Karishma A Steven 10/12/2024 1 [employer] - [employer]ESS [id number] Karishma A Steven [id number] OI Karishma A Steven Notes Date Note Type Note Provider Name and Address Organization Details Recorded Time 07/13/2024 text/html Doing fine, compliant to medications, no side affects, here for follow up.PT IS FASTING ( [employer] ) Anxiety- Under control, on meds, no symptoms of depression or anxiety, sleep fine,Meds- Citalopram 40 mg dailyAlopecia-On meds,seen derm , had local shotsMeds- Spironolactone 150 mg dailyObesity- advised to watch diet,has not lostThyroid nodule- was being observed, now size has gone up and had biopsy, no report but was told was neg, seen endo Dr Nicholslipfernando a- mild elevation, watching diet, on meds, [...] Zhang MD [address], [place], [address], [employer] 07/13/2024 09:40:58 07/13/2024 text/html . Patient is [...] return. David Edmond DPM [address], [place], [address], [employer] 07/13/2024 10:49:53 08/17/2024 text/html . Patient is [...] treatment. Patient denies any other complaints. David Edmond DPM [address], [facility] [address], [place], [address], [employer] 08/17/2024 10:57:25 10/03/2024 text/html Patient is a 59y /o female patient here for follow up on sunburn and rash. Patient states that it has improved but still has some itchy spots. Patient reports slight peeling on shoulders. Patient denies fever, headache, vomiting, and diarrhea. Chest-normalshoulder s-slight peeling, advised to exfoliate and use Euccerine cream form moisture or aquaphorLegs- much improved, continue using prescription at night, and moisturizer dialy, take OTC benadryl AMY Marcos [address], [place], [address], [employer] 10/03/2024 09:51:54 10/12/2024 text/html . Patient is a 59-year-old female she returns the office for follow-up on left Achilles tendinitis. Patient states that she has finished her physical therapy she states that she is no longer having Achilles and heel pain. Patient states that she is now just having pain locally along the skin which she has a palpable lump without tearing of the Achilles. Patient has a small bursitis which is likely secondary to rubbing in shoes. Patient states she has a silicone heel sleeve but she does not wear. Patient states she is also not very compliant with stretching instructions at home. Patient denies any fever, chills, nausea vomiting. Patient states she also has a painful callus under the sub 1st metatarsal head of the right foot she states that she has neglected this areas well. Patient states that it is built up and causes pain with walking. Patient again denies any injury, swelling, redness, drainage to the area. Patient states when she is off her foot it does feel better. Patient states she has salicylic acid home but has not been applying it. Patient denies any other complaints. Patient reports she just returned from [place] about 10 days ago which she has a healing sunburn to the dorsal feet that is noninfected and is at this point is dry flaky skin. David Edmond DPM [address], [facility] [address], [place], [address], [employer] 10/16/2024 09:40:08 OBGyn Episode No OBEpisode recorded.
[2024-10-20 07:46] VITALS: BP 128/78; PULSE 86; RESP 20; TEMP 35.7; O2SAT 98
[2024-10-20] MEDS: LACTATED RINGERS 1,000 ML 150 ML IV CONT (08:06)
--- NOTE | 2024-10-20 08:16 | WPDANESEPPF ---
Anes - Initial Pre Proc Eval Procedure: Operation Date: 10/20/24 09:00 Proposed Procedures p Screening Colonoscopy - Tom Caban MD Date/Time: 10/20/24 08:16 Surgeon: Tom Caban MD Pre Op Diagnosis: malignant neoplasm of colon Patient Data Age: 59 Gender: F Height: 1.68 m Weight: 114.8 kg Last Vital Signs Temp 96.2 F L 10/20/24 07:46 Pulse 86 10/20/24 07:46 Resp 20 10/20/24 07:46 BP 128/78 10/20/24 07:46 Pulse Ox 98 10/20/24 07:46 O2 Del Method Room Air 10/20/24 07:46 Allergies Allergy/AdvReac Type Severity Reaction Status Date / Time No Known Allergies Allergy Verified 10/20/24 07:44 Home Medications ?Medication ?Instructions ?Recorded ?Confirmed ?Type ascorbic acid (vitamin C) 500 mg 500 mg PO DAILY 04/28/23 10/20/24 History capsule cholecalciferol (vitamin D3) 50 50 mcg PO DAILY 04/28/23 10/20/24 History mcg (2,000 unit) capsule citalopram 20 mg tablet 20 mg PO DAILY 04/28/23 10/20/24 History multivitamin (Daily Multi-Vitamin 1 tablet PO DAILY 04/28/23 10/20/24 History tablet) omega 4-yls-sdo-fish oil 60 mg-90 1 cap PO DAILY 04/28/23 10/20/24 History mg-500 mg capsule (Fish Oil) simvastatin 20 mg tablet 20 mg PO DAILY 04/28/23 10/20/24 History spironolactone 100 mg tablet 100 mg PO DAILY 04/28/23 10/20/24 History naproxen 500 mg tablet 500 mg PO BID 11/05/23 History levothyroxine 25 mcg tablet 25 mcg PO DAILY #90 tabs 08/01/24 10/20/24 Rx (Unithroid) Patient hx anesthesia problems: none Family hx anesthesia problems: none Results Review: All pre-operative results and documents have been reviewed as part of the pre-operative evaluation. [facility] Past Medical History Medical History Nontoxic multinodular goiter High cholesterol Surgical History Surgical History History of left knee surgery H/O lateral meniscus repair of right knee Family History Family History Mother Hypertension Cerebrovascular accident Sibling Hypertension Breast cancer Father Family history of arthritis Family history of diabetes mellitus in first degree relative Social History Social History Smoking status: Never smoker Alcohol intake: current Drinks per week: 4 Alcohol use details: Socially Substance use: never Substance use type: does not use Do You Feel Safe in your Home?: Yes Lack of Transportation: No Lack of Food: Never True Current Housing: I Have Housing Concerned About Future Housing: No Difficulty Paying Gas/Electric Bills: No Difficulty Paying for Meds: No Currently Unemployed: No Education: Trade/Vocational Certificate Difficulty w/ Childcare or Family Care: No Living arrangements: with family Spiritual care concerns: No Anes - Eval Final PreProcedure Day of Procedure 10/20/24 08:16 Patient weight: normal Lungs: normal air movement Airway: Mallampati scale class II Neurological: alert and oriented Last oral intake: >/= 8 hours ASA classification: II Emergent: no Anesthetic plan: proceed Anesthesia type and monitoring: general GIVS and standard monitoring Results Review: All pre-operative results and documents have been reviewed as part of the pre-operative evaluation. Hyperlipidemia, hypothyroidism, pt can walk 1-2 fos, no cp or sob. Informed Consent: The patient's anesthetic plan and its attendant risks and benefits were discussed with the patient/family/POA. Questions were solicited and answers provided to the satisfaction of the patient/family/POA.
--- NOTE | 2024-10-20 08:57 | PM.IMHP ---
H&P: HPI History of Present Illness Date/Time: 10/20/24 08:57 Chief Complaint: Screening colonoscopy Narrative: This is the patient's 2nd colonoscopy after 10 years. There are no GI symptoms and there is no family history of colorectal cancer. Review of Systems Review of Systems: All systems reviewed & are unremarkable except as noted in HPI and below PMFSH Past Medical History Medical History Nontoxic multinodular goiter High cholesterol Surgical History Surgical History History of left knee surgery H/O lateral meniscus repair of right knee Family History Family History Mother Hypertension Cerebrovascular accident Sibling Hypertension Breast cancer Father Family history of arthritis Family history of diabetes mellitus in first degree relative Social History Social History Smoking status: Never smoker Alcohol intake: current Drinks per week: 4 Alcohol use details: Socially Substance use: never Substance use type: does not use Do You Feel Safe in your Home?: Yes Lack of Transportation: No Lack of Food: Never True Current Housing: I Have Housing Concerned About Future Housing: No Difficulty Paying Gas/Electric Bills: No Difficulty Paying for Meds: No Currently Unemployed: No Education: Trade/Vocational Certificate Difficulty w/ Childcare or Family Care: No Living arrangements: with family Spiritual care concerns: No Meds Home Medications and Allergies Home Medications ?Medication ?Instructions ?Recorded ?Confirmed ?Type ascorbic acid (vitamin C) 500 mg 500 mg PO DAILY 04/28/23 10/20/24 History capsule cholecalciferol (vitamin D3) 50 50 mcg PO DAILY 04/28/23 10/20/24 History mcg (2,000 unit) capsule citalopram 20 mg tablet 20 mg PO DAILY 04/28/23 10/20/24 History multivitamin (Daily Multi-Vitamin 1 tablet PO DAILY 04/28/23 10/20/24 History tablet) omega 5-zqt-wgh-fish oil 60 mg-90 1 cap PO DAILY 04/28/23 10/20/24 History mg-500 mg capsule (Fish Oil) simvastatin 20 mg tablet 20 mg PO DAILY 04/28/23 10/20/24 History spironolactone 100 mg tablet 100 mg PO DAILY 04/28/23 10/20/24 History naproxen 500 mg tablet 500 mg PO BID 11/05/23 History levothyroxine 25 mcg tablet 25 mcg PO DAILY #90 tabs 08/01/24 10/20/24 Rx (Unithroid) Allergies Allergy/AdvReac Type Severity Reaction Status Date / Time No Known Allergies Allergy Verified 10/20/24 07:44 Vital Signs Vital Signs - 24 hr 10/20/24 07:46 Temperature 96.2 F L Pulse Rate 86 Respiratory Rate 20 Blood Pressure 128/78 Pulse Oximetry 98 Oxygen Delivery Room Air Exam Const: General: cooperative and healthy appearing Resp: Effort & Inspection: normal respiratory effort and able to speak in complete sentences Auscultation: clear to auscultation bilaterally Cardio: Rate: regular rate Rhythm: regular rhythm GI: Inspection: normal to inspection GI Palp: No No hepatosplenomegaly present Auscultation: normal bowel sounds Rectal Exam: deferred Skin: General skin exam: normal color Psych: Appearance: grossly normal Mental Status: mental status grossly normal Assessment and Plan Assessment and plan (1) Encounter for screening colonoscopy: Code(s): Z12.11 - Encounter for screening for malignant neoplasm of colon Status: Acute Assessment and Plan: The patient is deemed a good candidate for the procedure. Consent signed. Will proceed.
[2024-10-20 09:28] VITALS: BP 121/82; PULSE 77; RESP 22; O2SAT 100
[2024-10-20 09:38] VITALS: BP 127/76; PULSE 66; RESP 23; O2SAT 100
[2024-10-20 09:48] VITALS: BP 130/84; PULSE 64; RESP 17; O2SAT 100
== END 2024-10-20 09:57 | disposition home or self-care (01) ==
PROVIDERS: PCP Internal Medicine; Referring Provider Internal Medicine; Visit Provider Internal Medicine Gastroenterology
PROC: 0DJD8ZZ Inspection of Lower Intestinal Tract, Via Natural or Artificial Opening Endoscopic (ICD-10-PCS; CPT 45378; principal; 2024-10-20 09:00)
DX: Z12.11 Encounter for screening for malignant neoplasm of colon (principal); K64.8 Other hemorrhoids; E78.00 Pure hypercholesterolemia, unspecified; Z79.1 Long term (current) use of non-steroidal anti-inflammatories (NSAID); Z98.890 Other specified postprocedural states; Z80.3 Family history of malignant neoplasm of breast; Z82.49 Family history of ischemic heart disease and other diseases of the circulatory system
CPT/HCPCS: 45378; J2003; J2704; J7120

== ENCOUNTER 2025-03-06 17:21 | Outpatient (CLI) | payer OTHER, SELFPAY ==
--- OUTSIDE RECORDS SUMMARY | 2018-09-23 | XMS_ITS | Encounter Summary ---
Author Organization [facility] Healthcare Address [address] [place] [address] Care Team Providers Care Judge'S Clerk Name Role Phone Ernie Zhang MD Primary Care Provider Grace Mccabe MD Unavailable [phone] Reason for Visit * Diagnostic Imaging (Routine) - Closed Specialty Diagnoses / Procedures Referred By [facility] Referred To Contact Procedures Breast Imaging Screening Outside Reference Transcribed Order, Provider Referral ID Status Reason Start Date Expiration Date Visits Re quested Visits Authorized [id number] Closed 05/12/2023 06/10/2024 1 1 Encounter Details Date Type Department Care Team ([facility] st Contact Info) Description 09/23/2018 Hospital Encounter [facility] [address] [place] [id number] Social History Tobacco Use Types Packs/Day Years Used Date Smoking Tobacco: Never Smokeless Tobacco: Never Alcohol Use Standard Drinks/Week Comments Yes 0 (1 standard drink = 0.6 oz pur e alcohol) Comments Unknown Sex and Gender Information Value Date Recorded Sex Assigned at Not on file 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 Gender Identity Not on file Sexual Orientation Not on file documented as of this encounter Plan of Treatment Not on file documented as of this encounter Procedures Procedure Name Priority Date/Time Associated Diagnosis Comments BREAST IMAGING MG SCREENING OUTSIDE REFERENCE Routine 09/23/2018 12:00 AM CDT documented in this encounter Results * Breast Imaging Screening Outside Reference (09/23/2018 12:00 AM CDT) Impressions [facility] - 05/12/2023 2:40 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 There will be no report generated by a [facility] Radiologist. Narrative [facility] - 05/12/2023 2:40 PM AERIAL INSTALLER EXAMINATION: Images For Reference Purposes Only us Provider Transcribed Order IMG MAMMO PROCEDURES Final Result [facility] documented in this encounter Visit Diagnoses Not on filedocumented in this encounter Care Teams Judge'S Clerk Relationship Specialty Start Date End Date Ernie Zhang MD PCP - General Internal Medicine 09/21/18 Grace Mccabe MD [address] [address] Referring Physician Gynecology 09/21/18 documented as of this encounter
--- OUTSIDE RECORDS SUMMARY | 2025-03-06 17:24 | XMS_ITS | Clinical Summary ---
Author Organization [facility] Address [address] [place] [address] Care Team Providers Care French Folder Name Role Phone Ernie Zhang MD Primary Care Provider Grace Mccabe MD Unavailable [phone] Rip Evans MD Unavailable [phone] Allergies No known active allergies Medications citalopram [...] on file Legal Sex Female 4:15 AM VAULT MANAGER Gender Identity Not on file Sexual Orientation Not on file Obstetrics History Last Filed Vital Signs Vital Sign Reading Time Taken Comments Blood Pressure 126/83 05/09/2024 8:04 AM VAULT MANAGER Pulse 65 05/09/2024 8:04 AM VAULT MANAGER Temperature 36.2 C (97.2 F) 05/09/2024 8:04 AM VAULT MANAGER Respiratory Rate 18 05/09/2024 8:04 AM VAULT MANAGER Oxygen Saturation 96% 05/09/2024 8:04 AM VAULT MANAGER Inhaled Oxygen Concentration - - Weight 118.5 kg (261 lb 3.2 oz) 05/09/2024 8:01 AM VAULT MANAGER Height 167.6 cm (5' 6) 05/13/2021 8:37 AM VAULT MANAGER Body Mass Index 42.16 05/13/2021 8:37 AM VAULT MANAGER Plan of Treatment Health Maintenance Due Date Last Done Comments Cervical Cancer Screening 1963 Colon Cancer Screening-Colonoscopy 1963 Depression Screening 1963 DTaP/Tdap/Td Vaccine (1 - Tdap) 1974 Hepatitis B Screening 1981 Regular Well Visit/Exam 18-64 1981 Zoster Vaccine (1 of 2) 2013 Influenza Vaccine (#1) 2025 , 04/16/2022, 03/24/2021 Breast Cancer Screening-Mammogram 04/25/2025 04/25/2024, 04/23/2023 Hepatitis C Screening Completed 01/02/2019 , 01/02/2019 Covid-19 Vaccine Discontinued 09/29/2020, 09/03/2020 Pneumococcal vaccine <65 Aged Out No longer eligible based on patient's age to complete this topic Procedures Procedure Name Priority Date/Time Associated Diagnosis Comments SCREENING MAMMOGRAM BILATERAL W SARAH Schedule Routine, Read Routine (OP Routine) 04/25/2024 7:35 AM VAULT MANAGER Screening mammogram, encounter for HEPATITIS PANEL, ACUTE Routine 01/02/2019 9:48 AM CDT Abnormal laboratory test result from Last 3 Months or Most Recently Relevant to Health Maintenance Results * Screening Mammogram Bilateral W Sarah (04/25/2024 7:35 AM VAULT MANAGER) Anatomical Region Laterality Modality Breast Bilateral Mammography Narrative 04/25/2024 3:32 PM VAULT MANAGER Mammogram Technique: Bilateral Digital Breast Tomosynthesis, Bilateral C-view 2D Screening mammogram. Views obtained: bilateral craniocaudal and bilateral mediolateral oblique. Computer Aided Detection was performed. Mammogram Findings: The present examination has been compared to prior imaging studies performed at [facility] on 04/23/2023 and 06/17/2023, and at [place], [place] on 03/02/2022. The breasts are almost [...] compared to prior imaging studies performed at [facility] on 04/23/2023 and 06/17/2023, and at [place], [place] on 03/02/2022. The breasts are almost [...] - GENERAL OR DERABLES Final Result [facility] [id number] Department [place] [address] from Last 3 Months or Most Recently Relevant to Health Maintenance Insurance [employer] [facility] [id number] [employer] [facility] [id number] [facility] [id number] Care Teams French Folder Relationship Specialty Start Date End Date Ernie Zhang MD PCP - General Internal Medicine 09/21/18 Grace Mccabe MD [address] [place] [id number] Referring Physician Gynecology 09/21/18 Rip Evans MD [address] [place] [id number] Consulting Physician Internal Medicine 04/26/23
--- OUTSIDE RECORDS SUMMARY | 2025-03-06 17:24 | XMS_ITS | Clinical Summary ---
Author Organization [facility] Address [address] [place] [address] Care Team Providers Care Filters Assembler Name Role Phone Ernie Zhang MD Primary Care Provider [phone] Lloyd Mendez MD Unavailable [phone] Source Comments [facility],non-owned Affiliates and Associated Physician Practices is amultiple site organization consisting of ambulatory clinics and hospital sitesin [place], [place], [place] and [place]. This disclosure is being madepursuant to the Care Everywhere program and may not contain all information available regarding this patient. Last updated 18.[facility] [employer] Allergies No known active allergies Medications * [...] 1 tablet by mouth once daily Active [place]-3 Fatty Acids (fish oil) 1000 MG capsule [...] 1:48 PM CDT Height 167.6 cm (5' 6) 12/31/2023 1:48 PM CDT Body Mass Index [...] - COLON CA SCREENING 1963 MAMMOGRAM 1963 HIV SCREENING 1978 HEPATITIS C SCREENING 03/05/1981 DTAP/TDAP/TD VACCINES (1 - Tdap) 1982 PAP SMEAR 1984 PNEUMOCOCCAL VACCINE 50+ (1 of 1 - PCV) 2013 ZOSTER VACCINE (1 of 2) 2013 Respiratory Syncytial Virus (RSV) Vaccine Pt: or over 60 yrs (1 - Risk 60-74 years 1-dose series) 2023 DEPRESSION SCREENING 06/21/2024 COVID-19 VACCINE (1 - 2023-2 5 season) 2025 INFLUENZA VACCINE (#1) 2025 SCREENING FOR DIABETES 11/22/2026 11/23/2023 HEPATITIS [...] 7 - 26 mg/dL 11/23/2023 3:13 PM [facility] Creatinine 0.96 0.56 - 0.96 mg/dL 11/23/2023 3:13 PM [facility] Sodium 137 136 - 145 mmol/L 11/23/2023 3:13 PM [facility] Potassium 4.0 3.5 - 4.5 mmol/L 11/23/2023 3:13 PM [facility] Chloride 100 98 - 107 mmol/L 11/23/2023 3:13 PM [facility] CO2 30(H) 22 - 29 mmol/L 11/23/2023 3:13 PM [facility] Glucose 82 70 - 115 mg/dL 11/23/2023 3:13 PM [facility] Calcium 10.0 8.4 - 10.2 mg/dL 11/23/2023 3:13 PM [facility] Anion Gap 7 6 - 16 11/23/2023 3:13 PM [facility] BUN/Creatinine Ratio 18 7 - 23 11/23/2023 3:13 PM [facility] Osmolality Calculated 285 275 - 295 mOsm/kg 11/23/2023 3:13 PM [facility] eGFR by CKD-EPI 68(L) >=90 mL/min/1.7 3 m2 11/23/2023 3:13 PM [facility] Blood BLOOD SPECIMEN / Unknown Lab Venipuncture / Unknown 11/23/2023 2:03 PM CDT 11/23/2023 2:43 PM CDT us Malcolm Hampton MD LAB - CHEMISTRY ORDERABLES Fi nal Result [facility] [address] [place] [address], [place] [phone] from Last 3 Months or Most Recently Relevant to Health Maintenance Insurance [employer] Advance Directives * Full Code (Latest Code Status on File) Date Activated Date Inactivated Comments 12/02/2023 12:24 PM 12/03/2023 11:25 AM Care Teams Filters Assembler Relationship Specialty Start Date End Date Ernie Zhang MD [address] [place] [id number] PCP - General Internal Medicine 11/23/23 Lloyd Mendez MD [address] [place] [address] Physician Internal Medicine 11/23/23
[2025-03-06 18:12] LABS: Free T4 Free Thyroxine 0.92 ng/dL (0.78-2.19)
[2025-03-06 18:26] LABS: Thyroid Stimulating Hormone 0.108 uIU/mL (0.465-4.680)
== END 2025-03-06 17:22 | disposition home or self-care (01) ==
LOC: ANHLAB 17:22
PROVIDERS: PCP Internal Medicine; Visit Provider Internal Medicine
DX: E04.2 Nontoxic multinodular goiter (principal); C73 Malignant neoplasm of thyroid gland
CPT/HCPCS: 36415; 84439; 84443